=== PATIENT | male | born 1945 | race Caucasian/White ===

== ENCOUNTER 2020-09-28 03:33 | Inpatient (IN) | payer MEDICARE, BC ==
[2020-09-28] MEDS ORDERED: SODIUM CHLORIDE 0.9% 1,000 ML IV STA (03:43)
--- NOTE | 2020-09-28 03:47 | ED ---
Dizziness HPI - General Chief Complaint: Dizziness Stated Complaint: Dizziness, Fall Time Seen by Provider: 09/28/20 03:43 Source: patient, family, RN notes reviewed, old records reviewed Mode of arrival: ambulatory Limitations: no limitations - History of Present Illness Initial Comments: This is a 74-year-old male DF for evaluation. Patient presents today for evaluation regards to severe dizziness weakness and feeling like he may pass out. Patient is very diaphoretic and fell on the wall. Patient got up at night to go to the bathroom when all symptoms began MD Complaint: dizziness, lightheadedness, near syncope -: hour(s) Timing: sudden onset Description: "room spinning", lightheadedness History of Same: No History of Trauma: No Severity: mild Improves With: nothing Worsens With: nothing Associated Symptoms: diaphoresis, weakness - Related Data Allergies Allergy/AdvReac Type Severity Reaction Status Date / Time Sulfa (Sulfonamide Allergy Hallucinati Verified 09/28/20 03:40 Antibiotics) ons Review of Systems ROS Statement: Those systems with pertinent positive or pertinent negative responses have been documented in the HPI. ROS Other: All systems not noted in ROS Statement are negative. Past Medical History Past Medical History: No Reported History Additional Past Medical History / Comment(s): back pain History of Any Multi-Drug Resistant Organisms: None Reported Past Surgical History: Hernia Repair, Tonsillectomy Additional Past Surgical History / Comment(s): fatty tumor removd right arm, oral surgery Past Psychological History: No Psychological Hx Reported Smoking Status: Never smoker Past Alcohol Use History: Daily Past Drug Use History: None Reported General Exam Limitations: no limitations General appearance: alert, in no apparent distress Head exam: Present: atraumatic, normocephalic, normal inspection Eye exam: Present: normal appearance, PERRL, EOMI. Absent: scleral icterus, conjunctival injection, periorbital swelling ENT exam: Present: normal exam, mucous membranes moist Neck exam: Present: normal inspection. Absent: tenderness, meningismus, lymphadenopathy Respiratory exam: Present: normal lung sounds bilaterally. Absent: respiratory distress, wheezes, rales, rhonchi, stridor Cardiovascular Exam: Present: regular rate, normal rhythm, normal heart sounds. Absent: systolic murmur, diastolic murmur, rubs, gallop, clicks GI/Abdominal exam: Present: soft, normal bowel sounds. Absent: distended, tenderness, guarding, rebound, rigid Extremities exam: Present: normal inspection, full ROM, normal capillary refill. Absent: tenderness, pedal edema, joint swelling, calf tenderness Back exam: Present: normal inspection Neurological exam: Present: alert, oriented X3, CN II-XII intact Psychiatric exam: Present: normal affect, normal mood Skin exam: Present: warm, dry, intact, normal color. Absent: rash Course Vital Signs 09/28/20 09/28/20 09/28/20 03:34 04:03 04:38 Temperature 98.4 F Pulse Rate 100 105 H Pulse Rate [ 116 H Nursing Surgical Services Director ] Respiratory 22 18 Rate Blood Pressure 163/88 151/107 O2 Sat by Pulse 99 99 Oximetry 09/28/20 09/28/20 04:45 05:43 Temperature Pulse Rate 118 H 91 Pulse Rate [ Nursing Surgical Services Director ] Respiratory 18 18 Rate Blood Pressure 144/96 118/97 O2 Sat by Pulse 98 98 Oximetry - Reevaluation(s) Reevaluation #1: 09/28/20 03:46 Medical record is reviewed EKG Findings - EKG Comments: EKG Findings:: EKG shows A. fib 95 QRS 94 QTC 392 Medical Decision Making - Lab Data Result diagrams: 09/28/20 03:47 09/28/20 03:47 Lab Results 09/28/20 09/28/20 09/28/20 Range/Units 03:47 03:47 03:47 WBC 6.1 (3.8-10.6) k/uL RBC 4.23 L (4.30-5.90) m/uL Hgb 13.0 (13.0-17.5) gm/dL Hct 40.6 (39.0-53.0) % MCV 95.8 (80.0-100.0) fL MCH 30.8 (25.0-35.0) pg MCHC 32.1 (31.0-37.0) g/dL RDW 15.9 H (11.5-15.5) % Plt Count 84 L (150-450) k/uL MPV 14.1 Neutrophils % (Manual) 41 % Lymphocytes % (Manual) 36 % Monocytes % (Manual) 19 % Eosinophils % (Manual) 4 % Neutrophils # (Manual) 2.50 (1.3-7.7) k/uL Lymphocytes # (Manual) 2.20 (1.0-4.8) k/uL Monocytes # (Manual) 1.16 H (0-1.0) k/uL Eosinophils # (Manual) 0.24 (0-0.7) k/uL Nucleated RBCs 0 (0-0) /100 WBC Manual Slide Review Performed Reactive Lymphocytes Present Large Platelets Present PT 11.2 (9.0-12.0) sec INR 1.1 (<1.2) APTT 24.0 (22.0-30.0) sec Sodium 143 (137-145) mmol/L Potassium 3.9 (3.5-5.1) mmol/L Chloride 107 (98-107) mmol/L Carbon Dioxide 28 (22-30) mmol/L Anion Gap 8 mmol/L BUN 23 H (9-20) mg/dL Creatinine 0.85 (0.66-1.25) mg/dL Est GFR (CKD-EPI)AfAm >90 (>60 ml/min/1.73 sqM) Est GFR (CKD-EPI)NonAf 85 (>60 ml/min/1.73 sqM) Glucose 106 H (74-99) mg/dL Plasma Lactic Acid Matt (0.7-2.0) mmol/L Calcium 8.8 (8.4-10.2) mg/dL Phosphorus 3.3 (2.5-4.5) mg/dL Magnesium 1.9 (1.6-2.3) mg/dL Total Bilirubin 0.9 (0.2-1.3) mg/dL AST 27 (17-59) U/L ALT 10 (4-49) U/L Alkaline Phosphatase 59 (38-126) U/L Creatine Kinase 62 (55-170) U/L Troponin I (0.000-0.034) ng/mL Total Protein 7.3 (6.3-8.2) g/dL Albumin 4.1 (3.5-5.0) g/dL 09/28/20 09/28/20 Range/Units 03:47 03:47 WBC (3.8-10.6) k/uL RBC (4.30-5.90) m/uL Hgb (13.0-17.5) gm/dL Hct (39.0-53.0) % MCV (80.0-100.0) fL MCH (25.0-35.0) pg MCHC (31.0-37.0) g/dL RDW (11.5-15.5) % Plt Count (150-450) k/uL MPV Neutrophils % (Manual) % Lymphocytes % (Manual) % Monocytes % (Manual) % Eosinophils % (Manual) % Neutrophils # (Manual) (1.3-7.7) k/uL Lymphocytes # (Manual) (1.0-4.8) k/uL Monocytes # (Manual) (0-1.0) k/uL Eosinophils # (Manual) (0-0.7) k/uL Nucleated RBCs (0-0) /100 WBC Manual Slide Review Reactive Lymphocytes Large Platelets PT (9.0-12.0) sec INR (<1.2) APTT (22.0-30.0) sec Sodium (137-145) mmol/L Potassium (3.5-5.1) mmol/L Chloride (98-107) mmol/L Carbon Dioxide (22-30) mmol/L Anion Gap mmol/L BUN (9-20) mg/dL Creatinine (0.66-1.25) mg/dL Est GFR (CKD-EPI)AfAm (>60 ml/min/1.73 sqM) Est GFR (CKD-EPI)NonAf (>60 ml/min/1.73 sqM) Glucose (74-99) mg/dL Plasma Lactic Acid Matt 1.0 (0.7-2.0) mmol/L Calcium (8.4-10.2) mg/dL Phosphorus (2.5-4.5) mg/dL Magnesium (1.6-2.3) mg/dL Total Bilirubin (0.2-1.3) mg/dL AST (17-59) U/L ALT (4-49) U/L Alkaline Phosphatase (38-126) U/L Creatine Kinase (55-170) U/L Troponin I 0.019 (0.000-0.034) ng/mL Total Protein (6.3-8.2) g/dL Albumin (3.5-5.0) g/dL Critical Care Time Critical Care Time: Yes Total Critical Care Time: 31 Disposition Clinical Impression: Atrial fibrillation with RVR, New onset atrial fibrillation, Near syncope Disposition: ADMITTED IP TO THIS HOSP Condition: Fair Is patient prescribed a controlled substance at d/c from ED?: No Referrals: None,Stated [Primary Care Provider] - 1-2 days
[2020-09-28 04:12] LABS: ALT 10 U/L (4-49); AST 27 U/L (17-59); African American GFR (CKD) >90 (>60 ml/min/1.73 sqM); Albumin 4.1 g/dL (3.5-5.0); Alkaline Phosphatase 59 U/L (38-126); Anion Gap 8 mmol/L; Blood Urea Nitrogen 23 mg/dL (9-20); Calcium 8.8 mg/dL (8.4-10.2); Carbon Dioxide 28 mmol/L (22-30); Chloride 107 mmol/L (98-107); Creatine Kinase 62 U/L (55-170); Glucose 106 mg/dL (74-99); Magnesium 1.9 mg/dL (1.6-2.3); Non-African American GFR(CKD) 85 (>60 ml/min/1.73 sqM); Phosphorus 3.3 mg/dL (2.5-4.5); Potassium 3.9 mmol/L (3.5-5.1); Sodium 143 mmol/L (137-145); Total Bilirubin 0.9 mg/dL (0.2-1.3); Total Protein 7.3 g/dL (6.3-8.2)
[2020-09-28 04:14] LABS: INR 1.1 (<1.2); Prothrombin Time 11.2 sec (9.0-12.0)
[2020-09-28 04:18] LABS: HCT 40.6 % (39.0-53.0); MCH 30.8 pg (25.0-35.0); MCHC 32.1 g/dL (31.0-37.0); MCV 95.8 fL (80.0-100.0); Mean Platelet Volume 14.1; RBC 4.23 m/uL (4.30-5.90); RDW 15.9 % (11.5-15.5); WBC 6.1 k/uL (3.8-10.6)
[2020-09-28] MEDS ORDERED: DILTIAZEM DRIP BOLUS FROM BAG 1 MG SOLN IV ONE (04:21)
[2020-09-28 04:26] LABS: Platelet Count 84 k/uL (150-450)
[2020-09-28] MEDS ORDERED: DILTIAZEM 125 MG in SODIUM CHLORIDE 0.9% 100 ML IV SCH (04:30)
[2020-09-28 04:31] LABS: Eosinophils # (M) 0.24 k/uL (0-0.7); Monocytes # (M) 1.16 k/uL (0-1.0); Neutrophils % (M) 41 %; Nucleated Red Blood Cells 0 /100 WBC (0-0); Total Cells Counted 100
[2020-09-28 04:32] LABS: Large Platelets Present; Reactive Lymphocytes Present
[2020-09-28] MEDS ORDERED: METOPROLOL TARTRATE 5 MG/5 ML VIAL IVP STA (04:48)
--- NOTE | 2020-09-28 05:34 | CT ---
EXAMINATION TYPE: CT brain wo con DATE OF EXAM: 09/28/2020 COMPARISON: None HISTORY: headache CT DLP: 1109.4 mGycm Automated exposure control for dose reduction was used. There is cerebral cortical atrophy. There is no mass effect nor midline shift. There is no sign of in tracranial hemorrhage. There is some mild white matter hypodensity. Calvarium is intact. There is muc us retention cyst right maxillary sinus. IMPRESSION: Mild atrophy. Chronic small vessel ischemia. No acute intracranial abnormality.
--- NOTE | 2020-09-28 05:49 | CT ---
EXAMINATION TYPE: CT angio chest DATE OF EXAM: 09/28/2020 COMPARISON: None HISTORY: chest pain CT DLP: 492.7 mGycm Automated exposure control for dose reduction was used. CONTRAST: Performed with IV Contrast, patient injected with 70 mL of Isovue 370. There are 3-D post processed images. There is some elevation of the right diaphragm. There is minimal atelectasis right lung base. 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 There is no dissection. There is no pericardial effusion. There is no evidence of filling defect in the pulmonary arteries. There is 2.5 cm right bronchial lym ph nodes. There is 2 cm left bronchial lymph nodes. There is no pleural effusion. There is some spurr ing in the thoracic spine. Sternum is intact. There is thoracic dextroscoliosis. There is 1.7 cm roun ded fluid density in the liver that is probably a cyst. IMPRESSION: No evidence of pulmonary embolism. There is mild bronchial adenopathy. Thoracic aortic aneurysm.
[2020-09-28] MEDS ORDERED: MORPHINE SULFATE 4 MG/ML SYRINGE IVP PRN (05:51)
[2020-09-28] MEDS ORDERED: MORPHINE SULFATE 4 MG/ML SYRINGE IVP STA (05:51)
[2020-09-28] MEDS ORDERED: NITROGLYCERIN SL TABS 0.4 MG TAB SUBLINGUAL PRN (06:05)
[2020-09-28 06:13] LABS: Appearance,Urine Clear (Clear); Bilirubin,Urine Negative (Negative); Blood,Urine Negative (Negative); Color,Urine Yellow; Glucose,Urine (UA) Negative (Negative); Ketones,Urine Negative (Negative); Leukocyte Esterase,Urine Negative (Negative); Nitrite,Urine Negative (Negative); PH, Urine 7.5 (5.0-8.0); Protein,Urine Negative (Negative); Specific Gravity,Urine 1.023 (1.001-1.035); Urobilinogen,Urine <2.0 mg/dL (<2.0)
[2020-09-28] MEDS: SODIUM CHLORIDE 0.9% 1,000 ML IV SCH ×2 (07:57→14:59)
[2020-09-28] MEDS: METOPROLOL TARTRATE 25 MG TAB PO SCH ×2 (07:58→19:32)
[2020-09-28] MEDS ORDERED: APIXABAN 5 MG TAB PO SCH ×2 (08:00→09:00)
[2020-09-28] MEDS ORDERED: HEPARIN SODIUM 1,000 UN/ML (10ML VL) IV ONE (12:54)
[2020-09-28] MEDS ORDERED: HEPARIN SODIUM 1,000 UN/ML (10ML VL) IV PRN (12:54)
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
[2020-09-28 17:50] LABS: Hypochromasia Slight; MCH 31.1 pg (25.0-35.0); MCHC 31.8 g/dL (31.0-37.0); MCV 97.8 fL (80.0-100.0); Mean Platelet Volume 14.7; RBC 4.19 m/uL (4.30-5.90); RDW 15.6 % (11.5-15.5); WBC 10.3 k/uL (3.8-10.6)
[2020-09-28 17:52] LABS: Platelet Count 93 k/uL (150-450)
[2020-09-28] MEDS: HEPARIN SOD,PORK IN 0.45% NACL 25,000 UNIT in 0.45% NACL 1 250ML.BAG IV SCH (17:57)
[2020-09-28] MEDS ORDERED: ACETAMINOPHEN TAB 325 MG TAB PO PRN (19:36)
--- NOTE | 2020-09-28 21:25 | ECHOF ---
Referral Reason:afib with RVR MEASUREMENTS -------- HEIGHT: 182.9 cm WEIGHT: 97.1 kg BP: 136/76 RVIDd: 3.8 cm (< 3.3) IVSd: 1.7 cm (0.6 - 1.1) LVIDd: 3.8 cm (3.9 - 5.3) LVPWd: 1.8 cm (0.6 - 1.1) IVSs: 2.2 cm LVIDs: 2.5 cm LVPWs: 2.2 cm LAESV Index (A-L): 31.48 ml/m Ao Diam: 3.8 cm (2.0 - 3.7) AV Cusp: 2.6 cm (1.5 - 2.6) LA Diam: 4.0 cm (2.7 - 3.8) MV EXCURSION: 17.874 mm (> 18.000) MV EF SLOPE: 43 mm/s (70 - 150) EPSS: 0.2 cm RAP: 5.00 mmHg RVSP: 21.34 mmHg FINDINGS -------- Atrial fibrillation. This was a technically adequate study. The left ventricular size is normal. There is severe concentric left ventricular hypertrophy. Ove rall left ventricular systolic function is normal with, an EF between 55 - 60 %. Left ventricular f illimg pressure cannot be estimated due to Atrial fibrillation. The right ventricle is mild to moderately enlarged. LA is midly dilated 29-33ml/m2. The right atrial size is normal. Interatrial and interventricular septum intact. The aortic valve is trileaflet and appears structurally normal. There is no evidence of aortic regu rgitation. There is no evidence of aortic stenosis. Mild mitral regurgitation is present. Mild tricuspid regurgitation present. There is no evidence of pulmonary hypertension. The right v entricular systolic pressure, as measured by Doppler, is 21.34mmHg. There is no pulmonic regurgitation present. The aortic root size is normal. IVC Not well visulized. There is no pericardial effusion. CONCLUSIONS -------- 1. This was a technically adequate study. 2. The left ventricular size is normal. 3. There is severe concentric left ventricular hypertrophy. 4. Overall left ventricular systolic function is normal with, an EF between 55 - 60 %. 5. Left ventricular fillimg pressure cannot be estimated due to Atrial fibrillation. 6. The right ventricle is mild to moderately enlarged. 7. LA is midly dilated 29-33ml/m2. 8. Mild mitral regurgitation is present. 9. Mild tricuspid regurgitation present. MAGNETIC TESTER: Lorrie Maddox RDCS
[2020-09-29] MEDS: SODIUM CHLORIDE 0.9% 1,000 ML IV SCH ×2 (02:47→08:20)
[2020-09-29 07:16] LABS: HCT 34.4 % (39.0-53.0); HGB 11.4 gm/dL (13.0-17.5); Hypochromasia Slight; MCH 31.9 pg (25.0-35.0); MCHC 33.1 g/dL (31.0-37.0); MCV 96.3 fL (80.0-100.0); RBC 3.57 m/uL (4.30-5.90); RDW 15.9 % (11.5-15.5); WBC 7.7 k/uL (3.8-10.6)
[2020-09-29 07:19] LABS: Mean Platelet Volume 14.7; Platelet Count 73 k/uL (150-450)
[2020-09-29] MEDS: METOPROLOL TARTRATE 25 MG TAB PO SCH (08:19)
[2020-09-29] MEDS: ASPIRIN 81 MG PO SCH (08:19)
[2020-09-29] MEDS ORDERED: ASPIRIN 325 MG TAB PO SCH (09:00)
--- NOTE | 2020-09-29 09:52 | P.PN ---
Subjective Progress Note Date: 09/29/20 Principal diagnosis: CC: Dizziness/lightheadedness Patient is a 74-year-old male with a past medical history of chronic back pain and varicose veins who does not have a PCP presents to the ED with dizziness and diaphoresis and near syncope. Patient states that he got up last night to use the bathroom and when he was walking back to his bed these symptoms occurred. Patient denies loss of consciousness. Patient's states that she listened to his heart and it sounded irregular. Patient however denied any palpitations or chest pain. In the ED patient was found to be in A. fib with RVR. He was started on Cardizem drip and Eliquis. Patient's troponins were mildly elevated and gradually increasing so Eliquis was discontinued and patient started on heparin drip. Patient's troponins peaked at 0.066. Patient was started on metoprolol 25 mg by mouth twice a day and he was titrated off the Cardizem drip. Patient's echocardiogram showed an EF of 55-60%. Cardiology plans to do a left heart catheterization on 09/30/2020 if his platelets are stable Patient this morning denies any palpitations or chest pain. He denies any further presyncopal episodes. Patient states that he feels well. Patient's platelets this morning were 73 which is down from 93. He denies any overt signs of bleeding. Objective - Vital Signs Vital signs: Vital Signs Temp 98.2 F 09/29/20 08:00 Pulse 110 H 09/29/20 08:00 Resp 16 09/29/20 08:00 BP 129/79 09/29/20 08:00 Pulse Ox 97 09/29/20 08:00 Intake & Output 09/28/20 09/29/20 09/29/20 18:59 06:59 18:59 Intake Total 2179.417 4227.732 0756.8 Balance 2179.417 4024.813 4765.8 Weight 97.3 kg 99.4 kg Intake: IV 1240 1200 Invasive Line 1 20 Invasive Line 2 20 Sodium Chloride 0.9% 1, 1200 1200 000 ml @ 100 mls/hr IV . Q10H [facility] Rx#:[id number] Intake, IV Titration 59.417 624.667 81.8 Amount Diltiazem 125 mg In 59.417 Sodium Chloride 0.9% 100 ml @ 5 MG/HR 5 mls/hr IV .Q24H [facility] Rx#:[id number] Heparin Sod,Pork in 0.45% 124.667 81.8 NaCl 25,000 unit In 0.45 % NaCl 1 250ml.bag @ 10. 278 UNITS/KG/HR 10 mls/hr IV .Q24H [facility] Rx#: [id number] Sodium Chloride 0.9% 1, 500 000 ml @ 100 mls/hr IV . Q10H [facility] Rx#:[id number] Oral 880 480 200 Other: # Voids 1 3 - Exam General examination - Alert and Oriented 3 in NAD Heart - + S1S2 no murmurs Lungs - Clear to auscultation Abdomen soft NT ND +ve BS Extremities - No edema [employer]CH[employer]ICIAN - Moving all 4 extremities spontaneously Psych - Calm and cooperative - Labs CBC & Chem 7: 09/29/20 06:37 09/28/20 03:47 Labs: Abnormal Lab Results - Last 24 Hours (Table) 09/28/20 09/28/20 09/28/20 Range/Units 10:51 14:05 17:09 RBC (4.30-5.90) m/uL Hgb (13.0-17.5) gm/dL Hct (39.0-53.0) % RDW (11.5-15.5) % Plt Count (150-450) k/uL APTT (22.0-30.0) sec Troponin I 0.066 H* 0.065 H* 0.056 H* (0.000-0.034) ng/mL 09/28/20 09/29/20 09/29/20 Range/Units 17:09 00:23 06:37 RBC 4.19 L (4.30-5.90) m/uL Hgb (13.0-17.5) gm/dL Hct (39.0-53.0) % RDW 15.6 H (11.5-15.5) % Plt Count 93 L (150-450) k/uL APTT 35.6 H 41.3 H (22.0-30.0) sec Troponin I (0.000-0.034) ng/mL 09/29/20 Range/Units 06:37 RBC 3.57 L (4.30-5.90) m/uL Hgb 11.4 L (13.0-17.5) gm/dL Hct 34.4 L (39.0-53.0) % RDW 15.9 H (11.5-15.5) % Plt Count 73 L (150-450) k/uL APTT (22.0-30.0) sec Troponin I (0.000-0.034) ng/mL Assessment and Plan Assessment: #Presyncopal episode likely due to A. fib with RVR versus possible ACS #A. fib with RVR -Heart rate is now controlled -Cardizem ggt discontinued and patient started on metoprolol 25 mg twice a day -Resume heparin drip -CHADVASc score is 2-> will defer choice of anticoagulation to cardiology -Cardiology on board #Type II [place] likely due to the above vs Type I -Patient denied any chest pain -Echocardiogram shows EF of 55-60% -Troponin peaked at 0.066. -Resume heparin drip -Cardiology plans to do left heart catheterization tomorrow if platelets are stable #Thrombocytopenia -Platelets decreased from 93-73 this morning -Patient denies any overt signs of bleeding -Monitor CBC #Chronic back pain -IV morphine when necessary -I encouraged patient to follow-up with his PCP for further workup Advanced to inpatient status as patient requires heparin drip and need to rule out ACS CODE STATUS:full code DVT prophylaxis: heparin ggt Anticipated discharge place: home
--- NOTE | 2020-09-29 12:08 | P.PN ---
Subjective HISTORY OF PRESENTING ILLNESS Patient is a pleasant 74-year-old male with history of chronic back pain, left hand neuropathy and varicose veins who presents secondary to episodes of dizziness and diaphoresis. He states that 2:00 in the morning he got up from bed to go use the bathroom and then on the walk there was feeling somewhat lightheaded. He started breaking out in a sweat and felt like he could not quite catch his breath. Patient denies any palpitations. No prior history of A. fib. He was found to be in A. fib with mild RVR with heart rates 110s and 120s and was given Cardizem drip, currently at 5. He states that after coming t o the emergency department to sweating slowly improved and now he feels somewhat back to normal. Blood work shows white blood cell count 6.1, hemoglobin 13.0, platelets 84, BUN 23, creatinine 0.85, troponin 0.019, 0.058, 0.066, 0.065. EKG shows atrial fibrillation with normal axis, no significant ST or T wave abnormalities. 09/29 Patient seen and examined. Patient was started on a heparin drip yesterday. He denies any further episodes of diaphoresis, shortness breath, chest tightness. He remains in A. fib with controlled ventricular rates. Echocardiogram performed yesterday shows ejection fraction 55-60%, mild mitral regurgitation. REVIEW OF SYSTEMS At the time of my exam: CONSTITUTIONAL: Denies fever or chills. CARDIOVASCULAR: Denies chest pain, +shortness of breath, no orthopnea, PND or palpitations. RESPIRATORY: Denies cough. GASTROINTESTINAL: Denies abdominal pain, diarrhea, constipation, nausea or vomiting. MUSCULOSKELETAL: Denies myalgias. NEUROLOGIC: Denies numbness, tingling or weakness. ENDOCRINE: Denies fatigue, weight change, polydipsia or polyurina. GENITOURINARY: Denies burning, hematuria or urgency with micturation. HEMATOLOGIC: Denies history of anemia or bleeding. PHYSICAL EXAMINATION Vital signs reviewed. CONSTITUTIONAL: No apparent distress. HEENT: Head is normocephalic. Pupils are equal, round. Sclerae anicteric. Mucous membranes of the mouth are moist. No JVD. No carotid bruit. CHEST EXAMINATION: Lungs are clear to auscultation. No chest wall tenderness is noted on palpation or with deep breathing. HEART EXAMINATION: Regular rate and rhythm. S1, S2 heard. No murmurs, gallops or rub. ABDOMEN: Soft, nontender. Positive bowel sounds. EXTREMITIES: 2+ peripheral pulses, no lower extremity edema and no calf tenderness. NEUROLOGIC EXAMINATION: Patient is awake, alert and oriented x3. ASSESSMENT 1. Non-STEMI, possible type II mechanism however did not appear to have significant A. fib with RVR, mild RVR and concerning for possible type I mechanism. 2. Acute onset of lightheadedness, diaphoresis and shortness breath. Rule out acute coronary syndrome 3. Mildly elevated blood pressure 4. New-onset A. fib with mild RVR, persistent 5. Thrombocytopenia PLAN Patient remains in A. fib and may be persistent atrial fibrillation, unclear duration. Acute onset of symptoms with rise and follow-up troponins concerning for acute coronary syndrome. Echocardiogram with preserved left ventricular ejection fraction. Given non- STEMI we will check left heart catheterization tomorrow as long his platelets remain stable. Objective - Vital Signs Vital signs: Vital Signs Temp 98.2 F 09/29/20 08:00 Pulse 110 H 09/29/20 08:00 Resp 16 09/29/20 08:00 BP 129/79 09/29/20 08:00 Pulse Ox 97 09/29/20 08:00 Intake & Output 09/28/20 09/29/20 09/29/20 18:59 06:59 18:59 Intake Total 2179.417 4335.224 0531.8 Balance 2179.417 1123.304 6933.8 Weight 97.3 kg 99.4 kg Intake: IV 1240 1200 Invasive Line 1 20 Invasive Line 2 20 Sodium Chloride 0.9% 1, 1200 1200 000 ml @ 100 mls/hr IV . Q10H [facility] Rx#:[id number] Intake, IV Titration 59.417 624.667 81.8 Amount Diltiazem 125 mg In 59.417 Sodium Chloride 0.9% 100 ml @ 5 MG/HR 5 mls/hr IV .Q24H [facility] Rx#:[id number] Heparin Sod,Pork in 0.45% 124.667 81.8 NaCl 25,000 unit In 0.45 % NaCl 1 250ml.bag @ 10. 278 UNITS/KG/HR 10 mls/hr IV .Q24H [facility] Rx#: [id number] Sodium Chloride 0.9% 1, 500 000 ml @ 100 mls/hr IV . Q10H [facility] Rx#:[id number] Oral 880 480 200 Other: # Voids 1 3 - Labs CBC & Chem 7: 09/29/20 06:37 09/28/20 03:47 Labs: Abnormal Lab Results - Last 24 Hours (Table) 09/28/20 09/28/20 09/28/20 Range/Units 10:51 14:05 17:09 RBC (4.30-5.90) m/uL Hgb (13.0-17.5) gm/dL Hct (39.0-53.0) % RDW (11.5-15.5) % Plt Count (150-450) k/uL APTT (22.0-30.0) sec Troponin I 0.066 H* 0.065 H* 0.056 H* (0.000-0.034) ng/mL 09/28/20 09/29/20 09/29/20 Range/Units 17:09 00:23 06:37 RBC 4.19 L (4.30-5.90) m/uL Hgb (13.0-17.5) gm/dL Hct (39.0-53.0) % RDW 15.6 H (11.5-15.5) % Plt Count 93 L (150-450) k/uL APTT 35.6 H 41.3 H (22.0-30.0) sec Troponin I (0.000-0.034) ng/mL 09/29/20 Range/Units 06:37 RBC 3.57 L (4.30-5.90) m/uL Hgb 11.4 L (13.0-17.5) gm/dL Hct 34.4 L (39.0-53.0) % RDW 15.9 H (11.5-15.5) % Plt Count 73 L (150-450) k/uL APTT (22.0-30.0) sec Troponin I (0.000-0.034) ng/mL
[2020-09-29 13:02] LABS: Chol/HDL Ratio 2.05; Cholesterol 88 mg/dL (0-200); Triglycerides <50.0 mg/dL (0.0-149.0)
[2020-09-29] MEDS ORDERED: ALPRAZolam 0.5 MG TAB PO PRN (14:07)
[2020-09-29] MEDS ORDERED: ALPRAZolam 0.25 MG TAB PO PRN (14:07)
[2020-09-29] MEDS ORDERED: NITROGLYCERIN SL TABS 0.4 MG TAB SUBLINGUAL PRN (14:07)
[2020-09-29] MEDS ORDERED: SODIUM CHLORIDE 0.9% 1,000 ML in EMPTY BAG 1 BAG IV ONE (14:07)
[2020-09-29] MEDS: HEPARIN SOD,PORK IN 0.45% NACL 25,000 UNIT in 0.45% NACL 1 250ML.BAG IV SCH (14:24)
[2020-09-29] MEDS ORDERED: lisinopriL 10 MG TAB PO SCH (18:30)
[2020-09-29] MEDS ORDERED: DILTIAZEM DRIP BOLUS FROM BAG 1 MG SOLN IV ONE (18:34)
[2020-09-29] MEDS ORDERED: DILTIAZEM 5 MG/ML 5 ML VIAL IVP STA (18:37)
[2020-09-29] MEDS: METOPROLOL TARTRATE 50 MG TAB PO SCH (18:45)
[2020-09-29] MEDS ORDERED: lisinopriL 20 MG TAB PO STA (22:19)
[2020-09-30] MEDS: SODIUM CHLORIDE 0.9% 1,000 ML IV SCH ×2 (03:15→09:47)
[2020-09-30] MEDS ORDERED: ATORVASTATIN 80 MG TAB PO ONE (06:00)
[2020-09-30] MEDS ORDERED: ASPIRIN 325 MG TAB PO ONE (06:00)
[2020-09-30] MEDS: ASPIRIN 81 MG PO SCH (06:11)
[2020-09-30] MEDS: METOPROLOL TARTRATE 50 MG TAB PO SCH ×2 (06:17→21:20)
[2020-09-30] MEDS: lisinopriL 20 MG TAB PO SCH (06:17)
[2020-09-30] MEDS ORDERED: HEPARIN SODIUM,PORCINE 2,500 UNIT in SODIUM CHLORIDE 0.9% 250 ML IRRIGATION PRN (07:00)
[2020-09-30] MEDS ORDERED: HEPARIN SODIUM,PORCINE 10,000 UNIT in SODIUM CHLORIDE 0.9% 1,000 ML IRRIGATION PRN (07:00)
[2020-09-30 07:19] LABS: HCT 36.9 % (39.0-53.0); HGB 12.1 gm/dL (13.0-17.5); Hypochromasia Slight; MCH 31.9 pg (25.0-35.0); MCHC 32.7 g/dL (31.0-37.0); MCV 97.6 fL (80.0-100.0); Mean Platelet Volume 15.8; RBC 3.79 m/uL (4.30-5.90); RDW 15.5 % (11.5-15.5); WBC 8.2 k/uL (3.8-10.6)
[2020-09-30] MEDS ORDERED: VERAPAMIL 2.5 MG/ML 2 ML AMP ONE (07:19)
[2020-09-30] MEDS ORDERED: fentaNYL (PF) 50 MCG/ML 2 ML AMP ONE (07:19)
[2020-09-30] MEDS ORDERED: HEPARIN SODIUM 1,000 UN/ML (10ML VL) ONE (07:19)
[2020-09-30 07:20] LABS: Platelet Count 75 k/uL (150-450)
[2020-09-30] MEDS ORDERED: LIDOCAINE 1% INJ 10MG/ML (20 ML MDV) ONE (07:20)
[2020-09-30 07:33] LABS: African American GFR (CKD) >90 (>60 ml/min/1.73 sqM); Blood Urea Nitrogen 18 mg/dL (9-20); Calcium 8.5 mg/dL (8.4-10.2); Chloride 107 mmol/L (98-107); Glucose 94 mg/dL (74-99); Magnesium 1.8 mg/dL (1.6-2.3); Non-African American GFR(CKD) 89 (>60 ml/min/1.73 sqM); Sodium 139 mmol/L (137-145)
[2020-09-30 07:34] LABS: Anion Gap 6 mmol/L; Carbon Dioxide 26 mmol/L (22-30)
[2020-09-30] MEDS ORDERED: MIDAZOLAM 2 MG/2 ML VIAL IV ONE (07:46)
[2020-09-30] MEDS ORDERED: fentaNYL (PF) 50 MCG/ML 2 ML AMP IV ONE (07:46)
[2020-09-30] MEDS ORDERED: IV FLUID CONTINUATION 500 ML IV ONE (07:47)
[2020-09-30] MEDS ORDERED: LIDOCAINE 1% INJ 10MG/ML (20 ML MDV) SQ ONE (07:47)
[2020-09-30] MEDS ORDERED: VERAPAMIL SYRINGE (5 MG/10 ML) INTRAARTER ONE (07:48)
[2020-09-30] MEDS ORDERED: HEPARIN SODIUM 1,000 UN/ML (10ML VL) IV ONE (07:52)
[2020-09-30] MEDS ORDERED: IOPAMIDOL-370 125ML BTL INJ ONE (08:03)
[2020-09-30] MEDS ORDERED: RX INFO: IV CONTRAST WAS GIVEN 1 EACH MISC MISCELLANE PRN (08:12)
--- NOTE | 2020-09-30 08:12 | P.CARDCATH ---
Description of Procedure: PROCEDURES PERFORMED: Left heart catheterization, bilateral coronary angiography INDICATION: Elevated troponins HISTORY: Patient is a pleasant 74-year-old male without significant medical history other somewhat uncontrolled hypertension who presented secondary to sudden onset of diaphoresis and shortness breath. Patient was found to have new onset of atrial fibrillation, unclear duration. Patient also was found to have elevated troponins with some mild rise and therefore left heart catheterization was recommended. CONSENT:I have discussed the risks, benefits and alternative therapies for the above-mentioned procedure and for both sedation/analgesia as well as necessary blood product administration, if indicated, as they pertain to this patient. The patient has indicated understanding and acceptance of the risks and procedures discussed. PROCEDURE: After the risks, benefits and alternatives of the above mentioned pr ocedure explained in detail with the patient, informed consent was obtained. Patient was taken to the catheterization lab and prepped and draped in usual fashion. 1% lidocaine was used to anesthetize the right radial artery. A 6- Japanese sheath was placed in the right radial artery using modified Seldinger technique. Left coronary angiography was performed with a 5-Japanese JL 3.5 catheter and right coronary angiography was performed with a 5-Japanese JR5 catheter in various views. A 5-Japanese FR5 catheter was inserted into the left ventricle and pressure measurements were obtained. The right radial sheath was removed and a TR band was placed with hemostasis achieved. The patient tolerated the procedure well. Patient was transported back to the post catheterization holding area in stable condition. Conscious Sedation: Patient was monitored under the direct supervision of vision of myself for conscious sedation using Versed and fentanyl for a total duration of 19 minutes HEMODYNAMICS: Aorta: 145/92 LV: 137/8, LVEDP 15 SELECTIVE CORONARY ARTERIOGRAPHY: LEFT MAIN: The left main is nonexistent as there are dual ostia of the LAD and circumflex. LEFT ANTERIOR DESCENDING CORONARY ARTERY: LAD is a large caliber vessel which wraps around to the apex. There is no significant stenosis. LEFT CIRCUMFLEX CORONARY ARTERY: Left circumflex is a moderate caliber vessel without significant stenosis. The left circumflex is codominant. RIGHT CORONARY ARTERY: The right coronary artery is a small to moderate caliber vessel which gives off a small PDA and is a codominant vessel. There is no significant stenosis. FINAL IMPRESSION: 1. Normal coronary arteries as described above. 2. Normal left sided filling pressures PLAN: 1. Aggressive risk factor modification per most recent ACC/AHA guidelines. 2. Follow-up in the office in 1-2 weeks.
--- NOTE | 2020-09-30 11:12 | P.PN ---
Subjective Progress Note Date: 09/30/20 Hospital course: Patient is a 74-year-old male with a past medical history of chronic back pain and varicose veins who does not follow with a PCP presented to the ED on 09/28/20 with a chief complaint of dizziness and diaphoresis and near syncope. Patient reportedly got up to use the restroom and the dizziness and diaphoresis came on suddenly accompanied by a feeling as though he was going to pass out, he states the symptoms resolved by the time he got back to bed and this is when his reportedly checked on him and found him to have an irregular heartbeat and called the ambulance. Upon arrival to the emergency department patient was found to be in A. fib RVR requiring placement on Cardizem drip and anticoagulation with Eliquis. An EKG was obtained showing A. fib with a controlled ventricular rate at [address] was completed revealing mild atrophy and chronic small vessel ischemia with no acute intercranial abnormalities. CT PE was completed negative for pulmonary embolism however did reveal a 4.3 cm thoracic aortic aneurysm in the ascending aorta. Patient underwent an echocardiogram revealing a normal EF of 55-60% with mild mitral and tricuspid regurgitation. Patient underwent cardiac catheterization this morning. Physical exam: Patient seen and fully evaluated at bedside upon return from cardiac cath. Cardiac cath site to right wrist with TR band in place, no signs of bleeding or hematoma present. Patient denies having any complaints at this time including chest pain, palpitations, shortness of breath, nausea, or vomiting. He remains in atrial fibrillation with a controlled ventricular rate in the 80s at time of assessment. Vital signs reviewed and stable. General: Nontoxic, no distress and appears stated age. Derm: Skin warm and dry, normal coloration for ethnicity. cardiac cath site to right wrist with TR band in place, no signs of bleeding or hematoma present. Head: Atraumatic, normocephalic and symmetric. Eyes: EOMs intact, no lid lag, and anicteric sclera Mouth: no lip lesions, mucus membranes moist Cardiovascular: Irregularly irregular hythm with normal S1S2, no murmur, positive posterior tibial pulses bilaterally, and cap refill < 2 seconds. Lungs: Respirations even, regular, and unlabored on room air. Lungs CTA bilaterally, no rhonchi, no rales, no wheezing, and no accessory muscle usage. Abdominal: soft, nontender to palpation, no guarding, no appreciable organomegaly Ext: ROM intact. No gross muscle atrophy, no edema, no contractures Neuro: Speech clear, face symmetrical and CN II-XII grossly intact with no noted focal neuro deficits Psych: Alert and oriented to person, place, time, and situation. Appropriate and pleasant affect. Assessment and Plan of Care: Presyncopal episode likely due to A. fib with RVR versus possible ACS Atrial fibrillation with RVR -An EKG was obtained showing A. fib with a controlled ventricular rate at 95 bpm. -Initial troponin 0.019 with repeat troponins elevated at 0.058, 0.066, 0.065, and 0.056. -Heart rate is now controlled -Patient underwent cardiac catheterization this morning. Awaiting further recommendations from cardiology. -Continue metoprolol 50 mg twice a day -Resume Eliquis once cleared by cardiology to resume status post cardiac cath Elevated troponins likely secondary to Type II [place] due to atrial fibrillation with episode of RVR -Patient denied any chest pain -An EKG was obtained showing A. fib with a controlled ventricular rate at 95 bpm. -Initial troponin 0.019 with repeat troponins elevated at 0.058, 0.066, 0.065, and 0.056. -Echocardiogram shows EF of 55-60% -Troponin peaked at 0.066. -Resume anticoagulation once cleared from cardiology to resume status post cath. -Cardiology completed Left heart catheterization this morning. Awaiting further recommendations. Hypertension -Monitor vital signs. Metoprolol was increased to 50 mg twice a day and lisinopril increased to 40 mg daily. Thrombocytopenia -Platelets 75,000 this morning. -Patient denies any overt signs of bleeding -Monitor CBC and for any signs of bleeding especially near cardiac cath site. Chronic back pain -Symptomatic care and pain management. -I encouraged patient to follow-up with his PCP for further workup CODE STATUS: Full code DVT prophylaxis: Resume Eliquis once cleared by cardiology status post cardiac cath completed earlier today. Discussed with: Patient and RN Anticipated discharge date: later today versus tomorrow, pending clearance from cardiology Anticipated discharge place: home A total of 45 minutes was spent on the care of this complex patient more than 50% of the time was spent in counseling and care coordination. Objective - Vital Signs Vital signs: Vital Signs Temp 97.6 F 09/30/20 07:53 Pulse 87 09/30/20 08:20 Resp 18 09/30/20 08:20 BP 142/91 09/30/20 08:20 Pulse Ox 96 09/30/20 08:20 Intake & Output 09/29/20 09/30/20 09/30/20 18:59 06:59 18:59 Intake Total 3027.782 250 50 Output Total 1 Balance 3027.782 249 50 Weight 98.9 kg Intake: IV 2200 250 50 Sodium Chloride 0.9% 1, 2200 250 000 ml @ 100 mls/hr IV . Q10H [facility] Rx#:[id number] Intake, IV Titration 167.782 Amount Heparin Sod,Pork in 0.45% 167.782 NaCl 25,000 unit In 0.45 % NaCl 1 250ml.bag @ 10. 278 UNITS/KG/HR 10 mls/hr IV .Q24H [facility] Rx#: [id number] Oral 660 Output: Urine 1 Other: Voiding Method Toilet # Voids 4 - Labs CBC & Chem 7: 09/30/20 06:42 09/30/20 06:42 Labs: Abnormal Lab Results - Last 24 Hours (Table) 09/29/20 09/30/20 09/30/20 Range/Units 13:50 06:42 06:42 RBC 3.79 L (4.30-5.90) m/uL Hgb 12.1 L (13.0-17.5) gm/dL Hct 36.9 L (39.0-53.0) % Plt Count 75 L (150-450) k/uL APTT 49.6 H 34.3 H (22.0-30.0) sec
--- NOTE | 2020-09-30 11:24 | P.PN ---
Subjective HISTORY OF PRESENTING ILLNESS Patient is a pleasant 74-year-old male with history of chronic back pain, left hand neuropathy and varicose veins who presents secondary to episodes of dizziness and diaphoresis. He states that 2:00 in the morning he got up from bed to go use the bathroom and then on the walk there was feeling somewhat lightheaded. He started breaking out in a sweat and felt like he could not quite catch his breath. Patient denies any palpitations. No prior history of A. fib. He was found to be in A. fib with mild RVR with heart rates 110s and 120s and was given Cardizem drip, currently at 5. He states that after coming t o the emergency department to sweating slowly improved and now he feels somewhat back to normal. 09/30/2020 Pt is s/p catheterization revealing normal coronary arteries. He continues to be in afib with controlled rates. Blood pressure 142/92 heart rate 87 afebrile and maintaining oxygen saturation on room air. His is at the bedside. He denies chest pain, shortness of breath, dizziness or palpitations. PHYSICAL EXAMINATION CONSTITUTIONAL: No apparent distress. HEENT: Head is normocephalic. Pupils are equal, round. Sclerae anicteric. Mucous membranes of the mouth are moist. No JVD. No carotid bruit. CHEST EXAMINATION: Lungs are clear to auscultation. No chest wall tenderness is noted on palpation or with deep breathing. HEART EXAMINATION: Regular rate and rhythm. S1, S2 heard. No murmurs, gallops or rub. EXTREMITIES: 2+ peripheral pulses, no lower extremity edema and no calf ten derness. Right radial TR band in place. ASSESSMENT Non-STEMI, possible type II mechanism however did not appear to have significant A. fib with RVR, mild RVR and concerning for possible type I mechanism. Acute onset of lightheadedness, diaphoresis and shortness breath. Rule out acute coronary syndrome Hypertension New-onset A. fib with mild RVR, persistent Thrombocytopenia PLAN His symptoms seemed to have started acutely prior to arrival. Likely this is when he went into afib. He admits to drinking wine heavily daily, at night before bedtime. Advised complete alcohol cessation. Hold anti-coagulation at this time due to thrombocytopenia. CHADS-VASC score 3. Increase activity and ambulation in the halls. If he remains stable with controlled heart rates he can be discharged later this afternoon. Follow up with Dr. Guillaume in 1 week. Nurse Practitioner note has been reviewed, I agree with a documented findings and plan of care. Patient was seen and examined. Objective - Vital Signs Vital signs: Vital Signs Temp 97.6 F 09/30/20 07:53 Pulse 82 09/30/20 08:50 Resp 18 09/30/20 08:20 BP 131/82 09/30/20 08:50 Pulse Ox 96 09/30/20 08:20 Intake & Output 09/29/20 09/30/20 09/30/20 18:59 06:59 18:59 Intake Total 3027.782 250 50 Output Total 1 Balance 3027.782 249 50 Weight 98.9 kg Intake: IV 2200 250 50 Sodium Chloride 0.9% 1, 2200 250 000 ml @ 100 mls/hr IV . Q10H [facility] Rx#:[id number] Intake, IV Titration 167.782 Amount Heparin Sod,Pork in 0.45% 167.782 NaCl 25,000 unit In 0.45 % NaCl 1 250ml.bag @ 10. 278 UNITS/KG/HR 10 mls/hr IV .Q24H [facility] Rx#: [id number] Oral 660 Output: Urine 1 Other: Voiding Method Toilet # Voids 4 - Labs CBC & Chem 7: 09/30/20 06:42 09/30/20 06:42 Labs: Abnormal Lab Results - Last 24 Hours (Table) 09/29/20 09/30/20 09/30/20 Range/Units 13:50 06:42 06:42 RBC 3.79 L (4.30-5.90) m/uL Hgb 12.1 L (13.0-17.5) gm/dL Hct 36.9 L (39.0-53.0) % Plt Count 75 L (150-450) k/uL APTT 49.6 H 34.3 H (22.0-30.0) sec
[2020-09-30 11:30] LABS: Glucose,Whole Blood 107 mg/dL (75-99)
[2020-09-30] MEDS ORDERED: METOPROLOL TARTRATE 50 MG TAB PO STA (21:38)
[2020-09-30] MEDS ORDERED: cloNIDine 0.2 MG/24HR PATCH TRANSDERM SCH (22:00)
[2020-10-01 04:37] VITALS: TEMP 98.4
[2020-10-01 08:55] VITALS: BP 135/79; PULSE 90; RESP 16
[2020-10-01] MEDS: lisinopriL 20 MG TAB PO SCH (08:56)
[2020-10-01] MEDS ORDERED: METOPROLOL TARTRATE 50 MG TAB PO SCH (09:00)
[2020-10-01 09:08] LABS: HCT 36.3 % (39.0-53.0); HGB 11.3 gm/dL (13.0-17.5); Hypochromasia Slight; MCH 30.3 pg (25.0-35.0); MCHC 31.1 g/dL (31.0-37.0); MCV 97.4 fL (80.0-100.0); Mean Platelet Volume 15.3; RBC 3.73 m/uL (4.30-5.90); RDW 15.6 % (11.5-15.5); WBC 10.3 k/uL (3.8-10.6)
[2020-10-01 09:22] LABS: African American GFR (CKD) >90 (>60 ml/min/1.73 sqM); Anion Gap 7 mmol/L; Blood Urea Nitrogen 16 mg/dL (9-20); Calcium 8.5 mg/dL (8.4-10.2); Carbon Dioxide 25 mmol/L (22-30); Chloride 106 mmol/L (98-107); Glucose 104 mg/dL (74-99); Magnesium 1.7 mg/dL (1.6-2.3); Non-African American GFR(CKD) 80 (>60 ml/min/1.73 sqM); Platelet Count 76 k/uL (150-450); Potassium 3.9 mmol/L (3.5-5.1); Sodium 138 mmol/L (137-145)
--- NOTE | 2020-10-01 09:42 | P.PN ---
Subjective HISTORY OF PRESENTING ILLNESS Patient is a pleasant 74-year-old male with history of chronic back pain, left hand neuropathy and varicose veins who presents secondary to episodes of dizziness and diaphoresis. He states that 2:00 in the morning he got up from bed to go use the bathroom and then on the walk there was feeling somewhat lightheaded. He started breaking out in a sweat and felt like he could not quite catch his breath. Patient denies any palpitations. No prior history of A. fib. He was found to be in A. fib with mild RVR with heart rates 110s and 120s and was given Cardizem drip, currently at 5. He states that after coming t o the emergency department to sweating slowly improved and now he feels somewhat back to normal. 10/01/2020 Pt seen and examined sitting up with his at the bedside. He had hypertension last night, clonidine patch was added and lopressor increased. Current blood pressures stable in the 130s systolic. Right radial access site stable with no hematoma or bleeding. PHYSICAL EXAMINATION CONSTITUTIONAL: No apparent distress. HEENT: Head is normocephalic. Pupils are equal, round. Sclerae anicteric. Mucous membranes of the mouth are moist. No JVD. No carotid bruit. CHEST EXAMINATION: Lungs are clear to auscultation. No chest wall tenderness is noted on palpation or with deep breathing. HEART EXAMINATION: Regular rate and rhythm. S1, S2 heard. No murmurs, gallops or rub. EXTREMITIES: 2+ peripheral pulses, no lower extremity edema and no calf tenderness. Right radial access site soft, non-tender, no hematoma or bleeding. ASSESSMENT Non-STEMI, possible type II mechanism however did not appear to have significant A. fib with RVR, mild RVR and concerning for possible type I mechanism. Acute onset of lightheadedness, diaphoresis and shortness breath. Rule out acute coronary syndrome Hypertension New-onset A. fib with mild RVR, persistent Thrombocytopenia PLAN Continue clonidine patch currently for hypertension and possible withdrawal. Follow up with Dr. Guillaume in 1 week. Nurse Practitioner note has been reviewed, I agree with a documented findings and plan of care. Patient was seen and examined. Objective - Vital Signs Vital signs: Vital Signs Temp 98.4 F 10/01/20 04:36 Pulse 90 10/01/20 08:55 Resp 16 10/01/20 08:55 BP 135/79 08/17/21 08:55 Pulse Ox 98 10/01/20 08:55 Intake & Output 09/30/20 10/01/20 10/01/20 18:59 06:59 18:59 Intake Total 850 240 Output Total 600 Balance 250 240 Weight 99.6 kg Intake: IV 50 Oral 800 240 Output: Urine 600 Other: Voiding Method Toilet # Voids 1 - Labs CBC & Chem 7: 10/01/20 08:40 10/01/20 08:40 Labs: Abnormal Lab Results - Last 24 Hours (Table) 09/30/20 10/01/20 10/01/20 Range/Units 11:29 08:40 08:40 RBC 3.73 L (4.30-5.90) m/uL Hgb 11.3 L (13.0-17.5) gm/dL Hct 36.3 L (39.0-53.0) % RDW 15.6 H (11.5-15.5) % Plt Count 76 L (150-450) k/uL Glucose 104 H (74-99) mg/dL POC Glucose (mg/dL) 107 H (75-99) mg/dL
--- NOTE | 2020-10-01 10:46 | P.DS ---
<Christian Bennett - Last Filed: 10/01/20 10:26> Providers Expected date of discharge: 10/01/20 Hospital Course: Discharge Diagnosis: Presyncopal episode due to A. fib with RVR, acute coronary event ruled out Atrial fibrillation with RVR Elevated troponins secondary to Type II MD due to atrial fibrillation with episode of RVR Hypertension Thrombocytopenia Chronic back pain Hospital Course: Patient is a 74-year-old male with a past medical history of chronic back pain and varicose veins who does not follow with a PCP and presented to the ED on 09/28/20 with a chief complaint of dizziness, diaphoresis and near syncope. Patient reportedly got up to use the restroom and the dizziness and diaphoresis came on suddenly accompanied by a feeling as though he was going to pass out, he states the symptoms resolved by the time he got back to bed and this is when his reportedly checked on him and found him to have an irregular heartbeat and called the ambulance. Upon arrival to the emergency department patient was found to be in A. fib RVR requiring placement on Cardizem drip and anticoagulation with Eliquis. An EKG was obtained showing A. fib with a controlled ventricular rate at [address] was completed revealing mild atrophy and chronic small vessel ischemia with no acute intercranial abnormalities. CT PE was completed negative for pulmonary embolism however did reveal a 4.3 cm thoracic aortic aneurysm in the ascending aorta. Patient underwent an echocardiogram revealing a normal EF of 55-60% with mild mitral and tricuspid regurgitation. Patient underwent cardiac catheterization on 09/30/20. Cardiac catheterization revealed normal coronary arteries. Patient was monitored overnight after cardiac cath secondary to thrombocytopenia and increased risk of bleeding. Cardiac cath site intact with no bleeding, swelling, redness, or hematoma present. Anticoagulation and to be held per cardiology until follow-up visit in office in 1 week and they will determine his need for further anticoagulation at that time. Pt also had persistent hypertension throughout admission and was placed on metoprolol, lisinopril, and after adjustments of these medications he was also placed on a clonidine patch for 7 days. Patient was cleared from cardiology standpoint and is currently medically clear for discharge home at this time. Patient and his were educated on importance of establishing a primary care provider and following up in office as well as following up with industrial arts teacher in 1 week as we discussed. Physical exam: Patient seen and fully evaluated at bedside. He was sitting up in the chair visiting with at bedside. He denies having any complaints at this time including chest pain, palpitations, shortness of breath, nausea, or vomiting. Vital signs reviewed and stable. General: Nontoxic, no distress and appears stated age. Derm: Skin warm and dry, normal coloration for ethnicity. cardiac cath site to right wrist with TR band in place, no signs of bleeding or hematoma present. Head: Atraumatic, normocephalic and symmetric. Eyes: EOMs intact, no lid lag, and anicteric sclera Mouth: no lip lesions, mucus membranes moist Cardiovascular: Irregularly irregular hythm with normal S1S2, no murmur, positive posterior tibial pulses bilaterally, and cap refill < 2 seconds. Lungs: Respirations even, regular, and unlabored on room air. Lungs CTA bilaterally, no rhonchi, no rales, no wheezing, and no accessory muscle usage. Abdominal: soft, nontender to palpation, no guarding, no appreciable organ omegaly Ext: ROM intact. No gross muscle atrophy, no edema, no contractures Neuro: Speech clear, face symmetrical and CN II-XII grossly intact with no noted focal neuro deficits Psych: Alert and oriented to person, place, time, and situation. Appropriate and pleasant affect. A total of 45 minutes of time were spent preparing this complex discharge summary. Patient Condition at Discharge: Stable Plan - Discharge Summary Discharge Rx Participant: No New Discharge Prescriptions: New Metoprolol Tartrate [Lopressor] 100 mg PO BID 30 Days #120 tab lisinopriL [Zestril] 40 mg PO DAILY 30 Days #60 tab Continue Ibuprofen [Motrin Ib] 400 mg PO Q6H PRN PRN Reason: CHRONIC BACK PAIN Discharge Medication List Ibuprofen [Motrin Ib] 400 mg PO Q6H PRN 09/28/20 [History] Metoprolol Tartrate [Lopressor] 100 mg PO BID 30 Days #120 tab 10/01/20 [Rx] lisinopriL [Zestril] 40 mg PO DAILY 30 Days #60 tab 10/01/20 [Rx] Follow up Appointment(s)/Referral(s): Isaac Guillaume DO [STAFF PHYSICIAN] - 1 Week (Spoke to unit receptionist. Office will call with appointment time.) Justin,Hector [STAFF PHYSICIAN] - 1-2 Days (Please call to schedule appointment with primary care physician) Patient Instructions/Handouts: *Surgery [facility] - After Heart Catheterization - Office Engineer Instructions, A-fib (Atrial Fibrillation) (ED), Near Syncope (ED) Activity/Diet/Wound Care/Special Instructions: Activity: As tolerated. Diet: Heart healthy diet. Wound Care: Watch for any bleeding, redness, or swelling at right wrist cardiac catheterization site. Lifting restrictions as discussed with and given to you by cardiology. Special Instructions: It is important for you to establish care with a primary care provider. The name of a local primary doctor has been provided for you. You should monitor your blood pressure and heart rate once daily and keep a journal to document in daily. An automated blood pressure cuff can be purchased at any local pharmacy. This journal should be brought with you to your future doctor appointments. You will need to follow-up with cardiology, Dr. Guillaume in one week. Thank you for allowing us to participate in your care, it was a pleasure having you for a patient!! Discharge Disposition: HOME SELF-CARE <Rhonda Mahmood A - Last Filed: 10/01/20 20:05> Providers Date of admission: 09/28/20 06:07 Attending physician: Bonnie Galvan MD Consults: 09/28/20 06:05 Consult Physician Urgent Consulting Provider: Reymundo Coppola Consult Reason/Comments: afib Do you want consulting provider notified?: Yes Primary care physician: Stated None Hospital Course: Christian Bennett NP rendered care for this patient independently, reviewed the findings and plan as documented in the note above. I did not physically speak with or examine the patient on this date. D/C orders reviewed and in agreement w ith plan
== END 2020-10-01 11:14 | disposition home or self-care (01) | DRG 282 ==
LOC: EC 03:33 → 3SCARD 06:07
PROVIDERS: ADMIT Internal Medicine; ATTEND Internal Medicine
PROC: 4A023N7 Measurement of Cardiac Sampling and Pressure, Left Heart, Percutaneous Approach (ICD-10-PCS; principal; 2020-09-30 10:20)
PROC: B2111ZZ Fluoroscopy of Multiple Coronary Arteries using Low Osmolar Contrast (ICD-10-PCS; principal; 2020-09-30 10:20)
DX: I48.19 Other persistent atrial fibrillation (principal); I21.A1 Myocardial infarction type 2; D69.6 Thrombocytopenia, unspecified; I71.2 Thoracic aortic aneurysm, without rupture; I10 Essential (primary) hypertension; I08.1 Rheumatic disorders of both mitral and tricuspid valves; G62.9 Polyneuropathy, unspecified; G89.29 Other chronic pain; M54.9 Dorsalgia, unspecified; I83.90 Asymptomatic varicose veins of unspecified lower extremity; E66.9 Obesity, unspecified; Z68.29 Body mass index [BMI] 29.0-29.9, adult; Z90.89 Acquired absence of other organs; Z87.19 Personal history of other diseases of the digestive system; Z87.2 Personal history of diseases of the skin and subcutaneous tissue; Z98.890 Other specified postprocedural states; W19.XXXA Unspecified fall, initial encounter; Y92.009 Unspecified place in unspecified non-institutional (private) residence as the place of occurrence of the external cause; Z88.2 Allergy status to sulfonamides
CPT/HCPCS: 36415; 70450; 71275; 80048; 80053; 80061; 81003; 82550; 83605; 83735; 84100; 84484; 85025; 85027; 85610; 85730; 93005; 93306; 93458; 96361; 96374; 96375; 99291

== ENCOUNTER → 2022-10-26 | Outpatient (CLI) | payer MEDICARE, BC ==
--- NOTE | 2022-10-26 08:44 | XR ---
EXAMINATION TYPE: XR chest 2V DATE OF EXAM: 10/26/2022 8:40 AM COMPARISON: CTA chest 09/28/2020 TECHNIQUE: XR chest 2V Frontal and lateral views of the chest. CLINICAL INDICATION:Male, 76 years old with history of C61 PROSTATE CANCER; FINDINGS: Lungs/Pleura: There is no evidence of pleural effusion, focal consolidation, or pneumothorax. Pulmonary vascularity: Unremarkable. Heart/mediastinum: Cardiomediastinal silhouette is unremarkable. Atherosclerotic calcifications are seen in the aorta. Musculoskeletal: No acute osseous pathology. Multilevel degenerative changes of the visualized spine. S-shaped sclerotic curvature. IMPRESSION: No acute cardiopulmonary disease/process.
[2022-10-26 09:04] LABS: African American GFR (CKD) 20 (>60 ml/min/1.73 sqM); Non-African American GFR(CKD) 18 (>60 ml/min/1.73 sqM)
[2022-10-26 09:16] LABS: Blood Urea Nitrogen 110 mg/dL (9-20)
--- NOTE | 2022-10-26 10:49 | CT ---
EXAMINATION TYPE: CT abdomen pelvis wo con DATE OF EXAM: 10/26/2022 COMPARISON: None HISTORY: Hx prostate ca CT DLP: 399.30 mGycm Examination of the solid and hollow viscera is limited given the lack of contrast. FINDINGS: LUNG BASES: No evidence for nodule. No evidence for infiltrate. LIVER/GB: The gallbladder is unremarkable. No space-occupying hepatic lesion. PANCREAS: No pancreatic mass identified. No inflammatory process seen. SPLEEN: Splenomegaly at 13.3 cm craniocaudal dimension. No intrasplenic lesions seen. ADRENALS: No adrenal nodules identified. No evidence for thickening. KIDNEYS: There is a low-lying left-sided kidney which is partially intrapelvic in location. 5 mm nono bstructing calculus lower pole right kidney. 2.3 mm calculi lower pole left kidney. There is a calcul us at the left UVJ with mild left-sided hydronephrosis suggested. No evidence for renal mass. Lawton c atheter is seen within a decompressed urinary bladder. BOWEL: Appendix has a normal appearance. No evidence of bowel obstruction. No inflammatory process. Lymph nodes: No evidence for adenopathy greater than 1 cm. Abdominal aorta: Atheromatous changes seen. No evidence for aneurysm. Genital organs: No significant abnormality. Other: There is a destructive bone lesion noted of the left superior pubic ramus and ischium as well as the left inferior pubic ramus. There is a lesion noted of the right lesser trochanter. There are s clerotic lesions noted to involve the L3 and T11 segments. IMPRESSION: 1. Findings compatible with bony metastatic disease. 2. Splenomegaly. 3. Low-lying left kidney with a suggestion of mild hydronephrosis possibly secondary to a calculus in the region of the left UVJ.
--- NOTE | 2022-10-26 14:43 | NM ---
EXAMINATION TYPE: NM bone scan whole body DATE OF EXAM: 10/26/2022 COMPARISON: CT abdomen pelvis 10/26/2022, CTA chest 09/28/2020, chest radiograph 10/26/2022 CLINICAL INDICATION: Male, 76 years old with history of C61 PROSTATE CANCER; Delayed whole-body scanning was performed following the injection of 23.9 mCi Tc 99m MDP. Images acq uired 4 hours post injection. FINDINGS: Abnormal increased radiotracer uptake identified within the right scapula, the bilateral ribs, thorac olumbar spine, and bilateral pelvic bones with most prominent involvement including the left hemisacr um and left inferior and superior pubic rami. Additional foci involving the bilateral iliac bones and bilateral proximal femurs. Physiologic radiotracer activity is demonstrated in the kidneys and bladder. Radiotracer activity is identified within the Law[place] catheter. IMPRESSION: Findings consistent with osseous metastatic disease as described above.
== END | disposition home or self-care (01) ==
LOC: RADCTMAIN 08:12
PROVIDERS: ATTEND Urology
DX: C61 Malignant neoplasm of prostate (principal); R16.1 Splenomegaly, not elsewhere classified
CPT/HCPCS: 82565; 84520; 71046; 74176; 36415; 78306; A9503

== ENCOUNTER 2022-11-11 17:13 | Inpatient (IN) | payer MEDICARE, BC ==
[2022-11-11] MEDS ORDERED: SODIUM CHLORIDE 0.9% 1,000 ML IV STA ×3 (17:24→18:19)
[2022-11-11] MEDS ORDERED: ACETAMINOPHEN TAB 500 MG TAB PO STA (17:24)
[2022-11-11] MEDS ORDERED: IBUPROFEN 600 MG TAB PO STA (17:24)
[2022-11-11 18:00] LABS: HCT 24.2 % (39.0-53.0); HGB 7.9 gm/dL (13.0-17.5); Hypochromasia Slight; MCH 29.5 pg (25.0-35.0); MCHC 32.5 g/dL (31.0-37.0); Mean Platelet Volume 15.6; Platelet Count 154 k/uL (150-450); RBC 2.66 m/uL (4.30-5.90); RDW 15.5 % (11.5-15.5); WBC 22.9 k/uL (3.8-10.6)
--- NOTE | 2022-11-11 18:08 | ED ---
General Adult HPI - General Chief complaint: Fever Stated complaint: Fever Time Seen by Provider: 11/11/22 17:17 Source: patient, EMS, RN notes reviewed, old records reviewed Mode of arrival: EMS Limitations: no limitations - History of Present Illness Initial comments: Patient is a 76-year-old male who presents emergency Department from home complaining of high fever and weakness. Patient has a history of metastatic prostate cancer with chronic Lawton catheter in place. Patient's been feeling weak with a fever for multiple days. Denies any cough. Denies any nausea or vomiting. Denies diarrhea. Denies abdominal pain or chest pain. His no other acute complaint at this time. Presents for further evaluation at this time. Unknown source for the patient's infection at this time. However patient has noticed more cloudy urine lately. He is in agreement that infection likely from his urine. - Related Data Home Medications Medication Instructions Recorded Confirmed Acetaminophen [Tylenol Arthritis] 1,300 mg PO Q6H PRN 11/11/22 11/11/22 Enzalutamide [Xtandi] 160 mg PO DAILY 11/11/22 11/11/22 Allergies Allergy/AdvReac Type Severity Reaction Status Date / Time Sulfa (Sulfonamide Allergy Hallucinati Verified 11/11/22 18:52 Antibiotics) ons Review of Systems ROS Statement: Those systems with pertinent positive or pertinent negative responses have been documented in the HPI. Review of Systems: CONST: Endorses fever EYES: Denies blurry vision ENT: Denies nasal congestion C/V: Denies Chest pain RESP: Denies shortness of breath GI: Denies abdominal pain : Denies dysuria SKIN: Denies rash. MSK: Denies joint pain. NEURO: Denies headache ROS Other: All systems not noted in ROS Statement are negative. Past Medical History Past Medical History: No Reported History, Cancer Additional Past Medical History / Comment(s): back pain, prostate cancer, bone cancer, pancreatic cancer History of Any Multi-Drug Resistant Organisms: None Reported Past Surgical History: Hernia Repair, Tonsillectomy Additional Past Surgical History / Comment(s): fatty tumor removd right arm, oral surgery Past Anesthesia/Blood Transfusion Reactions: No Reported Reaction Past Psychological History: No Psychological Hx Reported Smoking Status: Never smoker Past Alcohol Use History: Daily Past Drug Use History: None Reported General Exam - General Exam Comments Initial Comments: General: Appears in no acute distress. Febrile. HEAD: Normal with no signs of head trauma. EYES: PERRLA, EOMI, conjunctiva normal, no discharge. ENT: Hearing grossly intact, normal oropharynx. RESPIRATORY: Clear breath sounds bilaterally. No wheezes, rales, or rhonchi. C/V: Regular rate and rhythm. S1 and S2 auscultated, no edema, peripheral pulses 2+ and intact throughout ABD: Abd is soft, nontender, nondistended : Lawton catheter in place with cloudy urine in the Lawton bag. EXT: Normal range of motion, no obvious deformity SKIN: No rashes or lesions observed on exposed skin. NEURO: Alert and oriented 4. No focal deficits. Patient has generalized focal weakness. Limitations: no limitations Course Vital Signs 11/11/22 11/11/22 11/11/22 17:21 17:27 17:30 Temperature 103.1 F H Pulse Rate 116 H 122 H Respiratory 28 H 28 H 24 Rate Blood Pressure 108/53 107/59 O2 Sat by Pulse 97 99 Oximetry 11/11/22 11/11/22 11/11/22 18:51 19:55 20:41 Temperature 98.5 F Pulse Rate 99 99 95 Respiratory 26 H 31 H 30 H Rate Blood Pressure 101/50 94/42 88/47 O2 Sat by Pulse 92 L 98 99 Oximetry 11/11/22 11/11/22 21:12 21:15 Temperature Pulse Rate 96 Respiratory 12 Rate Blood Pressure 89/52 97/53 O2 Sat by Pulse 97 Oximetry Procedures - Sepsis Sepsis Focused Exam #1 Time Sepsis Criteria Met: 18:17 Sepsis Focused Exam Date: 11/11/22 Sepsis Focused Exam Time: 21:15 Sepsis Focused Exam Complete: Yes Vital Signs & RN Notes Reviewed: Yes Capillary Refill: > 2 Seconds: Fingers, Toes Peripheral Pulses: Normal: Radial (R), Radial (L) Skin Color: Normal for Patient Respiratory Exam: normal lung sounds Cardiovascular Exam: regular rate, normal rhythm Medical Decision Making - Medical Decision Making Was pt. sent in by a medical professional or institution (, PA, OUTSIDE COLLECTOR, urgent care, hospital, or fdc...) When possible be specific @ -No Did you speak to anyone other than the patient for history (EMS, parent, family, police, friend...)? What history was obtained from this source @ -No Did you review nursing and triage notes (agree or disagree)? Why? @ -I reviewed and agree with nursing and triage notes Were old charts reviewed (outside hosp., previous admission, EMS record, old EKG, old radiological studies, urgent care reports/EKG's, fdc records)? Report findings @ -No old charts were reviewed Differential Diagnosis (chest pain, altered mental status, abdominal pain women, abdominal pain men, vaginal bleeding, weakness, fever, dyspnea, syncope, headache, dizziness, GI bleed, back pain, seizure, CVA, palpatations, mental health, musculoskeletal)? @ -Differential Fever: Pneumonia, viral URI, endocarditis, myocarditis, pericarditis, otitis, sinusitis, peritonsillar Abscess, retropharyngeal Abscess, epiglottitis, peritonitis, appendicitis, Nayeli cystitis, diverticulitis, hepatitis, colitis, UTI, PID, TOA, pyelonephritis, prostatitis, epididymitis, meningitis, encephalitis, pulmonary embolism, CVA, thyroid storm, pancreatitis, adrenal crisis, cavernous sinus thrombosis, this is not meant to be an all-inclusive list. Differential Weakness: Hypoglycemia, shock, sepsis, hyponatremia, anemia, infection, [place], ETOH, adverse medicine reaction, overdose, stroke, this is not meant to be an all-inclusive list. EKG interpreted by me (3pts min.). @ -As above X-rays interpreted by me (1pt min.). @ -Chest x-ray does reveal a possible posterior infiltrate. CT interpreted by me (1pt min.). @ -None done U/S interpreted by me (1pt. min.). @ -None done What testing was considered but not performed or refused? (CT, X-rays, U/S, labs)? Why? @ -None What meds were considered but not given or refused? Why? @ -None Did you discuss the management of the patient with other professionals (professionals i.e. , PA, OUTSIDE COLLECTOR, lab, RT, psych nurse, adoption social worker, business lawyer, teacher, soil science technical officer, employment case manager)? Give summary @ -Yes, spoke with Dr. shepherd who accepted the admission and recommended I switch Zosyn to cefepime. Was smoking cessation discussed for >3mins.? @ -No Was critical care preformed (if so, how long)? @ -Yes, 52 minutes. Were there social determinants of health that impacted care today? How? (Homelessness, low income, unemployed, alcoholism, drug addiction, transportation, low edu. Level, literacy, decrease access to med. care, intermediate, rehab)? @ -No Was there de-escalation of care discussed even if they declined (Discuss DNR or withdrawal of care, Hospice)? DNR status @ -Yes, patient made DO NOT RESUSCITATE, DO NOT INTUBATE. Discussion was made with the patient as well as his who both agree with the plan. Discussed regarding patient's prognosis. Vasopressors are okay as are other medications. What co-morbidities impacted this encounter? (DM, HTN, Smoking, COPD, CAD, Cancer, CVA, ARF, Chemo, Hep., AIDS, mental health diagnosis, sleep apnea, morbid obesity)? @ -None Was patient admitted / discharged? Hospital course, mention meds given and route, prescriptions, significant lab abnormalities, going to OR and other pertinent info. @ -Based on the patient's presentation and physical exam, presents febrile with concern for infection at this time. We will obtain infectious labs as well as blood cultures. We will swab out his Lawton catheter. Concern for UTI at this time. Patient will be started on IV fluids at 1 L and then started on maintenance fluids at 1 30 mL an hour. He'll be given Tylenol and Motrin for fever. Patient was in agreement this plan. EKG showed no signs of acute ischemia. Chest x-ray shows possible posterior infiltrate. Patient's laboratory studies are remarkable for leukocytosis of 22.9, anemia of 7.9, lactic acidosis of 4.8, acute kidney injury with a BUN of 75 and creatinine of 4.68. Urinalysis was delayed but does show a UTI. Vital signs negative. When labs return, at 1817 patient met criteria for sepsis. Patient already given 1 L fluid bolus and started on 1 30 mL an hour. Given an additional 1.5 L of fluid. Patient started on broad-spectrum vancomycin, Zosyn. Patient was in agreement this plan. I did the patient as well as his . We did discuss end-of-life care and the decision was made to make the patient DNR/DNI. Vasopressors are okay. I spoke with the admitting physician, Dr. shepherd who accepted the admission. Requested I consult Dr. Lanier of infectious disease which was completed. He also requested that I switch Zosyn to cefepime which was done. Patient reevaluated multiple times and vital signs remained within acceptable limits. We'll closely monitor at this time. Undiagnosed new problem with uncertain prognosis? @ -No Drug Therapy requiring intensive monitoring for toxicity (Heparin, Nitro, Insulin, Cardizem)? @ -No Were any procedures done? @ -No Diagnosis/symptom? @ -Sepsis, suspect from UTI and possible pneumonia. Acute, or Chronic, or Acute on Chronic? @ -Acute Uncomplicated (without systemic symptoms) or Complicated (systemic symptoms)? @ -Complicated Side effects of treatment? @ -none Exacerbation, Progression, or Severe Exacerbation] @ -no Poses a threat to life or bodily function? @ -Yes Diagnosis/symptom? @ -Acute kidney injury, dehydration, lactic acidosis Acute, or Chronic, or Acute on Chronic? @ -Acute Uncomplicated (without systemic symptoms) or Complicated (systemic symptoms)? @ -Complicated Side effects of treatment? @ -none Exacerbation, Progression, or Severe Exacerbation] @ -no Poses a threat to life or bodily function? @ -Yes Diagnosis/symptom? @ -Prostate cancer, metastatic Acute, or Chronic, or Acute on Chronic? @ -Chronic Uncomplicated (without systemic symptoms) or Complicated (systemic symptoms)? @ -Complicated Side effects of treatment? @ -none Exacerbation, Progression, or Severe Exacerbation] @ -no Poses a threat to life or bodily function? @ -yes - Lab Data Result diagrams: 11/11/22 17:49 11/11/22 17:49 Lab Results 11/11/22 11/11/22 11/11/22 Range/Units 17:49 17:49 17:49 WBC 22.9 H (3.8-10.6) k/uL RBC 2.66 L (4.30-5.90) m/uL Hgb 7.9 L (13.0-17.5) gm/dL Hct 24.2 L (39.0-53.0) % MCV 91.0 (80.0-100.0) fL MCH 29.5 (25.0-35.0) pg MCHC 32.5 (31.0-37.0) g/dL RDW 15.5 (11.5-15.5) % Plt Count 154 (150-450) k/uL MPV 15.6 Neutrophils % (Manual) 78 % Band Neuts % (Manual) 2 % Lymphocytes % (Manual) 2 % Monocytes % (Manual) 19 % Neutrophils # (Manual) 18.30 H (1.3-7.7) k/uL Lymphocytes # (Manual) 0.46 L (1.0-4.8) k/uL Monocytes # (Manual) 4.35 H (0-1.0) k/uL Nucleated RBCs 0 (0-0) /100 WBC Manual Slide Review Performed Hypochromasia Slight Sodium 131 L (137-145) mmol/L Potassium 4.7 (3.5-5.1) mmol/L Chloride 103 (98-107) mmol/L Carbon Dioxide 12 L (22-30) mmol/L Anion Gap 16 mmol/L BUN 75 H (9-20) mg/dL Creatinine 4.68 H (0.66-1.25) mg/dL Est GFR (CKD-EPI)AfAm 13 (>60 ml/min/1.73 sqM) Est GFR (CKD-EPI)NonAf 11 (>60 ml/min/1.73 sqM) Glucose 84 (74-99) mg/dL Lactic Ac Sepsis Rflx Plasma Lactic Acid Matt 4.8 H* (0.7-2.0) mmol/L Calcium 7.8 L (8.4-10.2) mg/dL Total Bilirubin 0.9 (0.2-1.3) mg/dL AST 29 (17-59) U/L ALT 23 (4-49) U/L Alkaline Phosphatase 114 (38-126) U/L Total Protein 7.5 (6.3-8.2) g/dL Albumin 3.3 L (3.5-5.0) g/dL Urine Color Urine Appearance (Clear) Urine pH (5.0-8.0) Ur Specific [place] (1.001-1.035) Urine Protein (Negative) Urine Glucose (UA) (Negative) Urine Ketones (Negative) Urine Blood (Negative) Urine Nitrite (Negative) Urine Bilirubin (Negative) Urine Urobilinogen (<2.0) mg/dL Ur Leukocyte Esterase (Negative) Urine RBC (0-5) /hpf Urine WBC (0-5) /hpf Urine WBC Clumps (None) /hpf Urine Bacteria (None) /hpf Influenza Type A (PCR) (Not Detectd) Influenza Type B (PCR) (Not Detectd) RSV (PCR) (Not Detectd) SARS-CoV-2 (PCR) (Not Detectd) 11/11/22 11/11/22 11/11/22 Range/Units 17:49 18:11 19:14 WBC (3.8-10.6) k/uL RBC (4.30-5.90) m/uL Hgb (13.0-17.5) gm/dL Hct (39.0-53.0) % MCV (80.0-100.0) fL MCH (25.0-35.0) pg MCHC (31.0-37.0) g/dL RDW (11.5-15.5) % Plt Count (150-450) k/uL MPV Neutrophils % (Manual) % Band Neuts % (Manual) % Lymphocytes % (Manual) % Monocytes % (Manual) % Neutrophils # (Manual) (1.3-7.7) k/uL Lymphocytes # (Manual) (1.0-4.8) k/uL Monocytes # (Manual) (0-1.0) k/uL Nucleated RBCs (0-0) /100 WBC Manual Slide Review Hypochromasia Sodium (137-145) mmol/L Potassium (3.5-5.1) mmol/L Chloride (98-107) mmol/L Carbon Dioxide (22-30) mmol/L Anion Gap mmol/L BUN (9-20) mg/dL Creatinine (0.66-1.25) mg/dL Est GFR (CKD-EPI)AfAm (>60 ml/min/1.73 sqM) Est GFR (CKD-EPI)NonAf (>60 ml/min/1.73 sqM) Glucose (74-99) mg/dL Lactic Ac Sepsis Rflx Y Plasma Lactic Acid Matt (0.7-2.0) mmol/L Calcium (8.4-10.2) mg/dL Total Bilirubin (0.2-1.3) mg/dL AST (17-59) U/L ALT (4-49) U/L Alkaline Phosphatase (38-126) U/L Total Protein (6.3-8.2) g/dL Albumin (3.5-5.0) g/dL Urine Color Light Red Urine Appearance Turbid (Clear) Urine pH 6.0 (5.0-8.0) Ur Specific [place] 1.014 (1.001-1.035) Urine Protein 2+ H (Negative) Urine Glucose (UA) Negative (Negative) Urine Ketones Negative (Negative) Urine Blood Large H (Negative) Urine Nitrite Positive (Negative) Urine Bilirubin Negative (Negative) Urine Urobilinogen <2.0 (<2.0) mg/dL Ur Leukocyte Esterase Large H (Negative) Urine RBC 158 H (0-5) /hpf Urine WBC >182 H (0-5) /hpf Urine WBC Clumps Many H (None) /hpf Urine Bacteria Many H (None) /hpf Influenza Type A (PCR) Not Detected (Not Detectd) Influenza Type B (PCR) Not Detected (Not Detectd) RSV (PCR) Not Detected (Not Detectd) SARS-CoV-2 (PCR) Not Detected (Not Detectd) - EKG Data -: EKG Interpreted by Me EKG Comments: 12-lead Electrocardiogram Interpretation Note EKG was reviewed and interpreted by myself. 12-lead ECG performed at 1820 is interpreted by me as revealing sinus tachycardia at a rate of 102 beats per minute. [place] is normal. CO interval is 167 ms, QRS durations 102 ms, QTc is 391 ms.. There were no ST or T wave abnormalities to suggest myocardial ischemia or injury. R wave progression across the precordium was satisfactory. By my interpretation this EKG is non-diagnostic for acute ischemia. Critical Care Time Critical Care Time: Yes Total Critical Care Time: 52 Disposition Clinical Impression: Sepsis, Acute renal failure, Metastatic cancer, Dehydration, UTI (urinary tract infection), Pneumonia Disposition: ADMITTED IP TO THIS HOSP Condition: Serious Time of Disposition: 19:15
[2022-11-11 18:10] LABS: ALT 23 U/L (4-49); AST 29 U/L (17-59); African American GFR (CKD) 13 (>60 ml/min/1.73 sqM); Albumin 3.3 g/dL (3.5-5.0); Alkaline Phosphatase 114 U/L (38-126); Anion Gap 16 mmol/L; Blood Urea Nitrogen 75 mg/dL (9-20); Calcium 7.8 mg/dL (8.4-10.2); Carbon Dioxide 12 mmol/L (22-30); Chloride 103 mmol/L (98-107); Glucose 84 mg/dL (74-99); Non-African American GFR(CKD) 11 (>60 ml/min/1.73 sqM); Potassium 4.7 mmol/L (3.5-5.1); Sodium 131 mmol/L (137-145); Total Bilirubin 0.9 mg/dL (0.2-1.3); Total Protein 7.5 g/dL (6.3-8.2)
[2022-11-11] MEDS ORDERED: VANCOMYCIN IV PER PHARMACY 1 EACH MISC MISCELLANE PRN (18:18)
[2022-11-11] MEDS ORDERED: PIPERACILLIN-TAZOBACTAM 3.375 GM in SODIUM CHLORIDE 0.9% 100 ML IVPB STA (18:21)
[2022-11-11] MEDS ORDERED: VANCOMYCIN 1,500 MG in SODIUM CHLORIDE 0.9% 500 ML 500 ML IVPB ONE (18:30)
[2022-11-11 18:43] LABS: Band Neutrophils % 2 %; Lymphocytes # (M) 0.46 k/uL (1.0-4.8); Monocytes # (M) 4.35 k/uL (0-1.0); Neutrophils % (M) 78 %; Nucleated Red Blood Cells 0 /100 WBC (0-0); Total Cells Counted 200
[2022-11-11] MEDS ORDERED: NALOXONE 0.4 MG/ML 1 ML VIAL IV PRN (19:29)
--- NOTE | 2022-11-11 19:36 | XR ---
EXAMINATION TYPE: XR chest 2V DATE OF EXAM: 11/11/2022 COMPARISON: 10/26/2022 INDICATION: Dyspnea TECHNIQUE: Frontal and lateral views of the chest are obtained. FINDINGS: The heart size is normal. The pulmonary vasculature is normal. Appears to be posterior infiltrate on the lateral projection. Lungs are otherwise clear.. IMPRESSION: 1. Posterior infiltrate. Correlate for atelectasis or pneumonia. Follow-up can be performed.
[2022-11-11] MEDS ORDERED: SODIUM CHLORIDE 0.9% 500 ML 500 ML IV STA (20:22)
[2022-11-11 21:10] LABS: Appearance,Urine Turbid (Clear); Bacteria,Urine Many /hpf; Bilirubin,Urine Negative (Negative); Blood,Urine Large (Negative); Color,Urine Light Red; Glucose,Urine (UA) Negative (Negative); Ketones,Urine Negative (Negative); Leukocyte Esterase,Urine Large (Negative); Nitrite,Urine Positive (Negative); Protein,Urine 2+ (Negative); RBC,Urine 158 /hpf (0-5); Specific Gravity,Urine 1.014 (1.001-1.035); Urobilinogen,Urine <2.0 mg/dL (<2.0); WBC,Urine >182 /hpf (0-5)
[2022-11-11] MEDS: CEFEPIME 2 GM in SODIUM CHLORIDE 0.9% 100 ML IVPB SCH (22:38)
[2022-11-11] MEDS: ACETAMINOPHEN TAB 325 MG TAB PO PRN (23:24)
[2022-11-12] MEDS ORDERED: PIPERACILLIN-TAZOBACTAM 3.375 GM in SODIUM CHLORIDE 0.9% 100 ML IVPB SCH ×2
[2022-11-12] MEDS: MORPHINE SULFATE 4 MG/ML SYRINGE IV PRN (03:30)
[2022-11-12 04:55] LABS: Hypochromasia Moderate; MCH 28.9 pg (25.0-35.0); MCHC 31.4 g/dL (31.0-37.0); MCV 91.8 fL (80.0-100.0); Mean Platelet Volume 15.7; RBC 2.14 m/uL (4.30-5.90); RDW 15.6 % (11.5-15.5); WBC 30.4 k/uL (3.8-10.6)
[2022-11-12 05:12] LABS: African American GFR (CKD) 13 (>60 ml/min/1.73 sqM); Anion Gap 12 mmol/L; Blood Urea Nitrogen 69 mg/dL (9-20); Calcium 6.9 mg/dL (8.4-10.2); Carbon Dioxide 11 mmol/L (22-30); Chloride 108 mmol/L (98-107); Glucose 102 mg/dL (74-99); Non-African American GFR(CKD) 11 (>60 ml/min/1.73 sqM); Potassium 4.7 mmol/L (3.5-5.1); Sodium 131 mmol/L (137-145)
[2022-11-12] MEDS: CEFEPIME 2 GM in SODIUM CHLORIDE 0.9% 100 ML IVPB SCH (05:37)
[2022-11-12 06:05] LABS: HGB 6.2 gm/dL (13.0-17.5)
[2022-11-12 06:09] LABS: HCT 19.7 % (39.0-53.0)
[2022-11-12] MEDS ORDERED: SODIUM CHLORIDE 0.9% 500 ML 500 ML IV ONE (06:42)
[2022-11-12 06:53] LABS: Band Neutrophils % 3 %; Lymphocytes # (M) 3.04 k/uL (1.0-4.8); Monocytes # (M) 3.95 k/uL (0-1.0); Neutrophils % (M) 74 %; Nucleated Red Blood Cells 0 /100 WBC (0-0); Total Cells Counted 100
[2022-11-12 06:54] LABS: Large Platelets Present; Platelet Count 121 k/uL (150-450); Poikilocytosis (M) Present
[2022-11-12 06:55] LABS: Toxic Granulation Present
[2022-11-12] MEDS: PANTOPRAZOLE 40 MG/10 ML VIAL IVP SCH ×2 (06:57→08:20)
[2022-11-12] MEDS ORDERED: DEXTROSE 5%-0.9% NACL 1,000 ML IV SCH (08:00)
--- NOTE | 2022-11-12 08:01 | P.HPIM ---
History of Present Illness this is a pleasant 76 yo m with past medical history of chronic back pain, coronary artery disease A. fib with RVR, thrombocytopenia, history of prostate cancer, bone cancer (stage IV cancer) Patient was diagnosed with prostate cancer about one month ago with his urologist Dr. Pineda since then he has indwelling Lawton catheter. One day prior to admission patient becomes confused and incoherent as per at bedside he felt very weak and he fell on his way going to the bathroom without losing consciousness. So brought him to the hospital. This morning he is awake alert and oriented 3 but very weak, mildly confused. Denies any specific complaints right now but usually was complaining of from severe back pain that is been improved with morphine here in the emergency room. Also Lawton catheter was transferred to the emergency room for suspicion of infection. Patient denies any chest pain or dyspnea. No colon. No abdominal pain or vomiting or diarrhea. Patient has been complaining of from burning. No neurological complaints. Patient upon dose of supposed to receive a second dose of hormone therapy. Currently is on chemotherapy. On admission he had a fever of 103.1. Blood pressure borderline with systolic 94-103 this morning. Labs reviewed on admission, hemoglobin dropped to 7.9 down to 6.2. WBC 22.9 and 30.4. Platelet count within the reference range. Creatinine elevated 4.62. Elevated lactic acid came back to normal. Sodium 131, potassium 4.7. Liver enzymes not elevated. Urinalysis suspicious for infection Pharmacist not detected. Chest x-ray showed posterior pneumonia possibility. EKG showing sinus tachycardia and [address]-T changes.has Lawton catheter in the emergency room and this morning starting about 500 mL when discussed with staff. This morning he had drop of hemoglobin 7.9 down to 6.2. Patient denies blood per rectum, no black stool Review of Systems Review of systems CONSTITUTIONAL: No fever, no malaise, no fatigue. HEENT: No recent visual problems or hearing problems. Denied any sore throat. CARDIOVASCULAR: No orthopnea, PND, no palpitations, no syncope. PULMONARY: No shortness of breath, no cough, no hemoptysis. GASTROINTESTINAL: No diarrhea, no nausea, no vomiting, no abdominal pain. Normoactive bowel sounds. NEUROLOGICAL: No headaches, no weakness, no numbness. HEMATOLOGICAL: Denies any bleeding or petechiae. GENITOURINARY: Denies any burning micturition, frequency, or urgency. MUSCULOSKELETAL/RHEUMATOLOGICAL: Denies any joint pain, swelling, or any muscle pain. ENDOCRINE: Denies any polyuria or polydipsia. ROS unobtainable: due to mental status Past Medical History Past Medical History: No Reported History, Cancer Additional Past Medical History / Comment(s): back pain, prostate cancer, bone cancer, pancreatic cancer History of Any Multi-Drug Resistant Organisms: None Reported Past Surgical History: Hernia Repair, Tonsillectomy Additional Past Surgical History / Comment(s): fatty tumor removd right arm, ora l surgery Past Anesthesia/Blood Transfusion Reactions: No Reported Reaction Past Psychological History: No Psychological Hx Reported Smoking Status: Never smoker Past Alcohol Use History: Daily Past Drug Use History: None Reported Medications and Allergies Home Medications Medication Instructions Recorded Confirmed Type Acetaminophen [Tylenol Arthritis] 1,300 mg PO Q6H PRN 11/11/22 11/11/22 History Enzalutamide [Xtandi] 160 mg PO DAILY 11/11/22 11/11/22 History Allergies Allergy/AdvReac Type Severity Reaction Status Date / Time Sulfa (Sulfonamide Allergy Hallucinati Verified 11/11/22 18:52 Antibiotics) ons Physical Exam Vitals: Vital Signs Temp Pulse Resp BP Pulse Ox 11/12/22 01:59 89 103/63 11/12/22 00:30 89 20 108/49 95 11/12/22 00:20 91 14 79/44 95 11/12/22 00:12 97.2 F L 87 14 93/57 98 11/11/22 23:31 98.2 F 11/11/22 22:19 66 24 98/60 98 11/11/22 21:15 97/53 11/11/22 21:12 96 12 89/52 97 11/11/22 20:41 95 30 H 88/47 99 11/11/22 19:55 99 31 H 94/42 98 11/11/22 18:51 98.5 F 99 26 H 101/50 92 L 11/11/22 17:30 24 11/11/22 17:27 122 H 28 H 107/59 99 11/11/22 17:21 103.1 F H 116 H 28 H 108/53 97 Intake and Output 11/11/22 11/11/22 11/12/22 14:59 22:59 06:59 Output Total 20 Balance -20 Output: Urine 20 Uretheral (Lawton) 20 Other: Weight 90.718 kg GENERAL: The patient is alert and oriented x3, not in any acute distress. Well developed, well nourished. Pale and generally weak HEENT: Pupils are round and equally reacting to light. EOMI. No scleral icterus. No conjunctival pallor. Normocephalic, atraumatic. No pharyngeal erythema. No thyromegaly. CARDIOVASCULAR: S1 and S2 present. No murmurs, rubs, or gallops. PULMONARY: Chest is clear to auscultation, no wheezing , no crackles. -ABDOMEN: Soft, nontender, nondistended, normoactive bowel sounds. No palpable organomegaly. Lawton catheter in place MUSCULOSKELETAL: No joint swelling or deformity. EXTREMITIES: No cyanosis, clubbing, or pedal edema. NEUROLOGICAL: Gross neurological examination did not reveal any focal deficits. SKIN: No rashes. no petechiae. Results CBC & Chem 7: 11/12/22 04:42 11/12/22 04:42 Labs: Abnormal Lab Results - Last 24 Hours (Table) 11/11/22 11/11/22 11/11/22 Range/Units 17:49 17:49 17:49 WBC 22.9 H (3.8-10.6) k/uL RBC 2.66 L (4.30-5.90) m/uL Hgb 7.9 L (13.0-17.5) gm/dL Hct 24.2 L (39.0-53.0) % RDW (11.5-15.5) % Neutrophils # (Manual) 18.30 H (1.3-7.7) k/uL Lymphocytes # (Manual) 0.46 L (1.0-4.8) k/uL Monocytes # (Manual) 4.35 H (0-1.0) k/uL Sodium 131 L (137-145) mmol/L Chloride (98-107) mmol/L Carbon Dioxide 12 L (22-30) mmol/L BUN 75 H (9-20) mg/dL Creatinine 4.68 H (0.66-1.25) mg/dL Glucose (74-99) mg/dL Plasma Lactic Acid Matt 4.8 H* (0.7-2.0) mmol/L Calcium 7.8 L (8.4-10.2) mg/dL Albumin 3.3 L (3.5-5.0) g/dL Urine Protein (Negative) Urine Blood (Negative) Ur Leukocyte Esterase (Negative) Urine RBC (0-5) /hpf Urine WBC (0-5) /hpf Urine WBC Clumps (None) /hpf Urine Bacteria (None) /hpf 11/11/22 11/11/22 11/12/22 Range/Units 19:14 20:29 01:07 WBC (3.8-10.6) k/uL RBC (4.30-5.90) m/uL Hgb (13.0-17.5) gm/dL Hct (39.0-53.0) % RDW (11.5-15.5) % Neutrophils # (Manual) (1.3-7.7) k/uL Lymphocytes # (Manual) (1.0-4.8) k/uL Monocytes # (Manual) (0-1.0) k/uL Sodium (137-145) mmol/L Chloride (98-107) mmol/L Carbon Dioxide (22-30) mmol/L BUN (9-20) mg/dL Creatinine (0.66-1.25) mg/dL Glucose (74-99) mg/dL Plasma Lactic Acid Matt 3.3 H* 2.6 H* (0.7-2.0) mmol/L Calcium (8.4-10.2) mg/dL Albumin (3.5-5.0) g/dL Urine Protein 2+ H (Negative) Urine Blood Large H (Negative) Ur Leukocyte Esterase Large H (Negative) Urine RBC 158 H (0-5) /hpf Urine WBC >182 H (0-5) /hpf Urine WBC Clumps Many H (None) /hpf Urine Bacteria Many H (None) /hpf 11/12/22 11/12/22 Range/Units 04:42 04:42 WBC 30.4 H (3.8-10.6) k/uL RBC 2.14 L (4.30-5.90) m/uL Hgb 6.2 L* D (13.0-17.5) gm/dL Hct 19.7 L* (39.0-53.0) % RDW 15.6 H (11.5-15.5) % Neutrophils # (Manual) (1.3-7.7) k/uL Lymphocytes # (Manual) (1.0-4.8) k/uL Monocytes # (Manual) (0-1.0) k/uL Sodium 131 L (137-145) mmol/L Chloride 108 H (98-107) mmol/L Carbon Dioxide 11 L (22-30) mmol/L BUN 69 H (9-20) mg/dL Creatinine 4.60 H (0.66-1.25) mg/dL Glucose 102 H (74-99) mg/dL Plasma Lactic Acid Matt (0.7-2.0) mmol/L Calcium 6.9 L (8.4-10.2) mg/dL Albumin (3.5-5.0) g/dL Urine Protein (Negative) Urine Blood (Negative) Ur Leukocyte Esterase (Negative) Urine RBC (0-5) /hpf Urine WBC (0-5) /hpf Urine WBC Clumps (None) /hpf Urine Bacteria (None) /hpf Assessment and Plan Assessment: acute urinary tract infection, associated with indwelling [place] catheter Sepsis secondary to above Acute kidney injury and failure, nonoliguric acute sever anemia requiring blood transufion metabolic encephalopathy History of prostate cancer, colon cancer and pancreatic cancer Paroxysmal A. fib with RVR moderate Severe Chronic back pain, related to his metastatic disease Plan: continue with IV hydration Continue with antibiotic, currently on vancomycin and cefepime is started in the emergency room Infectious disease consult was ordered. I will consult also nephrology service Consult surgery service for severe anemia. transfuse 1 unit of blood and monitor hemoglobin avoid blood thinner Pain management Labs and medication were reviewed.. Continue same treatment. Continue with symptomatic treatment. Resume home medication. Monitor labs and vitals. DVT and GI prophylaxis. Further recommendations as per clinical course of the patient DVT prophylaxis: no Subcutaneous heparin GI Prophylaxis: Pepcid Protonix PT/OT: Deferred Prognosis is guarded
[2022-11-12] MEDS: HEPARIN SODIUM,PORCINE 5,000 UNIT/ML 1 ML VIAL SQ SCH ×2 (08:25→20:53)
[2022-11-12] MEDS: ACETAMINOPHEN TAB 325 MG TAB PO PRN ×3 (08:30→20:51)
[2022-11-12] MEDS ORDERED: FAMOTIDINE 20 MG/2 ML VIAL IV SCH (09:00)
[2022-11-12] MEDS: DEXTROSE 5% IN WATER 1,000 ML with SODIUM BICARB (1 MEQ/ML) 150 ML IV SCH ×2 (10:20→23:39)
--- NOTE | 2022-11-12 11:49 | P.GSCN ---
History of Present Illness Consult date: 11/12/22 History of present illness: CHIEF COMPLAINT: Fever and weakness HISTORY OF PRESENT ILLNESS: This is a 76-year-old male with a history of metastatic prostate cancer with chronic indwelling Lawton catheter and last hormonal therapy treatment was this past Wednesday. Patient presented to the hospital with fevers and weakness. Patient with evidence of sepsis and UTI. Patient had a low hemoglobin that did drop from 7.9-6.2 on admission. He will be receiving 1 unit of blood. Patient denies any blood or black in his stools. Denies any nausea or vomiting. Denies any abdominal pain. Reports that he's never had EGD or colonoscopy. He reports that he is not on any blood thinners. He reports that he does have frequent bleeding from his Lawton catheter. He does have evidence of acute kidney injury and is being followed by nephrology. PAST MEDICAL HISTORY: back pain, prostate cancer, bone cancer, pancreatic cancer PAST SURGICAL HISTORY: Hernia Repair, Tonsillectomy MEDICATIONS: See below ALLERGIES: See below SOCIAL HISTORY: No illicit drug use. REVIEW OF SYSTEMS: CONSTITUTIONAL: Denies fever or chills. HEENT: Denies blurred vision, vision changes, or eye pain. Denies hemoptysis CARDIOVASCULAR: Denies chest pain or pressure. RESPIRATORY: No shortness of breath. GASTROINTESTINAL: See HPI for pertinent findings HEMATOLOGIC: Denies bleeding disorders. GENITOURINARY: Denies any blood in urine or increased urinary frequency. SKIN: Denies pruitis. Denies rash. PHYSICAL EXAM: VITAL SIGNS: Reviewed GENERAL: Well-developed in no acute distress. HEENT: No sclera icterus. Extraocular movements grossly intact. Moist buccal mucosa. Head is atraumatic, normocephalic. No nasal drainage. ABDOMEN: Soft. Nondistended. Nontender NEUROLOGIC: Alert and oriented. Cranial nerves II through XII grossly intact. LABORATORY DATA: WBC is 30.4 HB6.2 platelets 121, Hgb was 11.3 in 09/2020 Sodium 131 potassium 4.7 creatinine 4.60 Lactic acid 3.3-1.5 Urinalysis large amount of blood large leukocyte esterase Influenza, RSV, COVID-19 detected IMAGING: Chest x-ray posterior infiltrate. Correlate for atelectasis or pneumonia ASSESSMENT: 1. Anemia with no evidence of active bleeding 2. Sepsis with UTI 3. Metastatic prostate cancer PLAN: -Patient is tentatively scheduled for EGD and colonoscopy on 11/16/[address] De LaR osa -Agree with Blood transfusion -Continue regular diet -Continue to monitor hemoglobin -Continue to monitor for any signs or symptoms of bleeding Thank you for this consultation Physician Central Supply Clerk note has been reviewed by physician. Signing provider agrees with the documented findings, assessment, and plan of care. Past Medical History Past Medical History: No Reported History, Cancer Additional Past Medical History / Comment(s): back pain, prostate cancer, bone cancer, pancreatic cancer History of Any Multi-Drug Resistant Organisms: None Reported Past Surgical History: Hernia Repair, Tonsillectomy Additional Past Surgical History / Comment(s): fatty tumor removd right arm, oral surgery Past Anesthesia/Blood Transfusion Reactions: No Reported Reaction Past Psychological History: No Psychological Hx Reported Smoking Status: Never smoker Past Alcohol Use History: Daily Past Drug Use History: None Reported Medications and Allergies Home Medications Medication Instructions Recorded Confirmed Type Acetaminophen [Tylenol Arthritis] 1,300 mg PO Q6H PRN 11/11/22 11/11/22 History Enzalutamide [Xtandi] 160 mg PO DAILY 11/11/22 11/11/22 History Allergies Allergy/AdvReac Type Severity Reaction Status Date / Time Sulfa (Sulfonamide Allergy Hallucinati Verified 11/11/22 18:52 Antibiotics) ons Surgical - Exam Vital Signs Temp Pulse Resp BP Pulse Ox 103.1 F H 116 H 28 H 108/53 97 11/11/22 17:21 11/11/22 17:21 11/11/22 17:21 11/11/22 17:21 11/11/22 17:21 Results - Labs 11/12/22 04:42 11/12/22 04:42 Abnormal Lab Results - Last 24 Hours (Table) 11/11/22 11/11/22 11/11/22 Range/Units 17:49 17:49 17:49 WBC 22.9 H (3.8-10.6) k/uL RBC 2.66 L (4.30-5.90) m/uL Hgb 7.9 L (13.0-17.5) gm/dL Hct 24.2 L (39.0-53.0) % RDW (11.5-15.5) % Plt Count (150-450) k/uL Neutrophils # (Manual) 18.30 H (1.3-7.7) k/uL Lymphocytes # (Manual) 0.46 L (1.0-4.8) k/uL Monocytes # (Manual) 4.35 H (0-1.0) k/uL Sodium 131 L (137-145) mmol/L Chloride (98-107) mmol/L Carbon Dioxide 12 L (22-30) mmol/L BUN 75 H (9-20) mg/dL Creatinine 4.68 H (0.66-1.25) mg/dL Glucose (74-99) mg/dL Plasma Lactic Acid Matt 4.8 H* (0.7-2.0) mmol/L Calcium 7.8 L (8.4-10.2) mg/dL Albumin 3.3 L (3.5-5.0) g/dL Urine Protein (Negative) Urine Blood (Negative) Ur Leukocyte Esterase (Negative) Urine RBC (0-5) /hpf Urine WBC (0-5) /hpf Urine WBC Clumps (None) /hpf Urine Bacteria (None) /hpf Crossmatch 11/11/22 11/11/22 11/12/22 Range/Units 19:14 20:29 01:07 WBC (3.8-10.6) k/uL RBC (4.30-5.90) m/uL Hgb (13.0-17.5) gm/dL Hct (39.0-53.0) % RDW (11.5-15.5) % Plt Count (150-450) k/uL Neutrophils # (Manual) (1.3-7.7) k/uL Lymphocytes # (Manual) (1.0-4.8) k/uL Monocytes # (Manual) (0-1.0) k/uL Sodium (137-145) mmol/L Chloride (98-107) mmol/L Carbon Dioxide (22-30) mmol/L BUN (9-20) mg/dL Creatinine (0.66-1.25) mg/dL Glucose (74-99) mg/dL Plasma Lactic Acid Matt 3.3 H* 2.6 H* (0.7-2.0) mmol/L Calcium (8.4-10.2) mg/dL Albumin (3.5-5.0) g/dL Urine Protein 2+ H (Negative) Urine Blood Large H (Negative) Ur Leukocyte Esterase Large H (Negative) Urine RBC 158 H (0-5) /hpf Urine WBC >182 H (0-5) /hpf Urine WBC Clumps Many H (None) /hpf Urine Bacteria Many H (None) /hpf Crossmatch 11/12/22 11/12/22 11/12/22 Range/Units 04:42 04:42 06:20 WBC 30.4 H (3.8-10.6) k/uL RBC 2.14 L (4.30-5.90) m/uL Hgb 6.2 L* D (13.0-17.5) gm/dL Hct 19.7 L* (39.0-53.0) % RDW 15.6 H (11.5-15.5) % Plt Count 121 L (150-450) k/uL Neutrophils # (Manual) 23.40 H (1.3-7.7) k/uL Lymphocytes # (Manual) (1.0-4.8) k/uL Monocytes # (Manual) 3.95 H (0-1.0) k/uL Sodium 131 L (137-145) mmol/L Chloride 108 H (98-107) mmol/L Carbon Dioxide 11 L (22-30) mmol/L BUN 69 H (9-20) mg/dL Creatinine 4.60 H (0.66-1.25) mg/dL Glucose 102 H (74-99) mg/dL Plasma Lactic Acid Matt (0.7-2.0) mmol/L Calcium 6.9 L (8.4-10.2) mg/dL Albumin (3.5-5.0) g/dL Urine Protein (Negative) Urine Blood (Negative) Ur Leukocyte Esterase (Negative) Urine RBC (0-5) /hpf Urine WBC (0-5) /hpf Urine WBC Clumps (None) /hpf Urine Bacteria (None) /hpf Crossmatch See Detail Diabetes panel 11/11/22 11/12/22 Range/Units 17:49 04:42 Sodium 131 L 131 L (137-145) mmol/L Potassium 4.7 4.7 (3.5-5.1) mmol/L Chloride 103 108 H (98-107) mmol/L Carbon Dioxide 12 L 11 L (22-30) mmol/L BUN 75 H 69 H (9-20) mg/dL Creatinine 4.68 H 4.60 H (0.66-1.25) mg/dL Glucose 84 102 H (74-99) mg/dL Calcium 7.8 L 6.9 L (8.4-10.2) mg/dL AST 29 (17-59) U/L ALT 23 (4-49) U/L Alkaline Phosphatase 114 (38-126) U/L Total Protein 7.5 (6.3-8.2) g/dL Albumin 3.3 L (3.5-5.0) g/dL Calcium panel 11/11/22 11/12/22 Range/Units 17:49 04:42 Calcium 7.8 L 6.9 L (8.4-10.2) mg/dL Albumin 3.3 L (3.5-5.0) g/dL Pituitary panel 11/11/22 11/12/22 Range/Units 17:49 04:42 Sodium 131 L 131 L (137-145) mmol/L Potassium 4.7 4.7 (3.5-5.1) mmol/L Chloride 103 108 H (98-107) mmol/L Carbon Dioxide 12 L 11 L (22-30) mmol/L BUN 75 H 69 H (9-20) mg/dL Creatinine 4.68 H 4.60 H (0.66-1.25) mg/dL Glucose 84 102 H (74-99) mg/dL Calcium 7.8 L 6.9 L (8.4-10.2) mg/dL Adrenal panel 11/11/22 11/12/22 Range/Units 17:49 04:42 Sodium 131 L 131 L (137-145) mmol/L Potassium 4.7 4.7 (3.5-5.1) mmol/L Chloride 103 108 H (98-107) mmol/L Carbon Dioxide 12 L 11 L (22-30) mmol/L BUN 75 H 69 H (9-20) mg/dL Creatinine 4.68 H 4.60 H (0.66-1.25) mg/dL Glucose 84 102 H (74-99) mg/dL Calcium 7.8 L 6.9 L (8.4-10.2) mg/dL Total Bilirubin 0.9 (0.2-1.3) mg/dL AST 29 (17-59) U/L ALT 23 (4-49) U/L Alkaline Phosphatase 114 (38-126) U/L Total Protein 7.5 (6.3-8.2) g/dL Albumin 3.3 L (3.5-5.0) g/dL
--- NOTE | 2022-11-12 12:22 | P.NPCON ---
History of Present Illness - Reason for Consult acute renal failure - History of Present Illness Patient is a 76-year-old male with history of prostate cancer and urine retention status post Law[place] catheter placement for the past few months. Patient follows with Dr. Pineda as outpatient. Patient is admitted to the hospital with complaints of increased weakness and difficulty to ambulate. He has had decreased oral intake No significant diarrhea or vomiting. Patient states he has had decent amount of urine in his catheter. Lawton catheter was changed in the ER as there was high suspicion for infection. Patient denies any previous history of kidney diseases. Serum creatinine was 4.6 today and it was 4.6 yesterday. Previous creatinine at 3.2 on 10/26/2022 and 0.9 on 10/01/2020. Hemoglobin was low at 6.2 and systolic blood pressure has been low in the 70s. Significant acidosis noted with CO2 at 11 on labs today. Patient states he had bleeding in the Lawton catheter and does not report any other source of bleeding. Urine currently appears yellow in the bag. Review of Systems As per HPI Past Medical History Past Medical History: No Reported History, Cancer Additional Past Medical History / Comment(s): back pain, prostate cancer, bone cancer, pancreatic cancer History of Any Multi-Drug Resistant Organisms: None Reported Past Surgical History: Hernia Repair, Tonsillectomy Additional Past Surgical History / Comment(s): fatty tumor removd right arm, oral surgery Past Anesthesia/Blood Transfusion Reactions: No Reported Reaction Past Psychological History: No Psychological Hx Reported Smoking Status: Never smoker Past Alcohol Use History: Daily Past Drug Use History: None Reported Medications and Allergies Home Medications Medication Instructions Recorded Confirmed Type Acetaminophen [Tylenol Arthritis] 1,300 mg PO Q6H PRN 11/11/22 11/11/22 History Enzalutamide [Xtandi] 160 mg PO DAILY 11/11/22 11/11/22 History Allergies Allergy/AdvReac Type Severity Reaction Status Date / Time Sulfa (Sulfonamide Allergy Hallucinati Verified 11/11/22 18:52 Antibiotics) ons Physical Exam Vitals: Vital Signs Temp Pulse Resp BP Pulse Ox 11/12/22 11:26 97.7 F 74 18 82/48 99 11/12/22 11:06 97.8 F 76 17 71/50 100 11/12/22 10:50 97.6 F 80 16 92/53 97 11/12/22 08:30 98.3 F 79 17 88/54 100 11/12/22 06:00 76 18 94/54 11/12/22 01:59 89 103/63 11/12/22 00:30 89 20 108/49 95 11/12/22 00:20 91 14 79/44 95 11/12/22 00:12 97.2 F L 87 14 93/57 98 11/11/22 23:31 98.2 F 11/11/22 22:19 66 24 98/60 98 11/11/22 21:15 97/53 11/11/22 21:12 96 12 89/52 97 11/11/22 20:41 95 30 H 88/47 99 11/11/22 19:55 99 31 H 94/42 98 11/11/22 18:51 98.5 F 99 26 H 101/50 92 L 11/11/22 17:30 24 11/11/22 17:27 122 H 28 H 107/59 99 11/11/22 17:21 103.1 F H 116 H 28 H 108/53 97 Intake and Output 11/11/22 11/12/22 11/12/22 22:59 06:59 14:59 Intake Total 0 Output Total 20 300 Balance -20 -300 Intake: Blood Product 0 Rc As-1 Unit 0 [id number] Output: Urine 20 300 Uretheral (Law[place]) 20 300 Other: Weight 90.718 kg Patient is awake, comfortable, no acute distress He is weak Examination of the heart S1 and S2 Examination of the lungs bilateral breath sounds are heard Abdomen is soft nontender Examination lower extremity shows edema 1+ bilaterally with chronic skin changes [employer] exam grossly intact Results - Lab Results Most recent lab results Calcium 6.9 mg/dL (8.4-10.2) L 11/12/22 04:42 11/12/22 04:42 11/12/22 04:42 Assessment and Plan Assessment: 1. Acute kidney injury, ATN currently nonoliguric. Patient has an indwelling Lawton catheter for urine retention for the past few months. Etiology of ATN is hypotension, sepsis and severe anemia. UA shows RBCs 158 WBCs more than 180-2+ protein and large blood. Check ultrasound of the kidneys 2. History of prostate cancer currently with indwelling Law[place] catheter, being followed by Dr. Pineda from urology 3. Severe non-gap metabolic acidosis secondary to acute kidney injury along with lactic acidosis from hypotension 4. Anemia rule out GI bleed 5. Lactic acidosis 6. UTI indwelling Lawton catheter. Urine culture is pending 7. Encephalopathy mostly metabolic 8. Chronic back pain associated with metastatic disease. Plan: Add IV bicarb Agree with packed RBCs transfusion Check ultrasound of the kidneys Repeat labs in a.m. Continue with empiric antibiotics Avoid nephrotoxic agents. Thank you for the consultation. We will continue to follow the patient with you during his hospitalization
[2022-11-12] MEDS: PIPERACILLIN-TAZOBACTAM 3.375 GM in SODIUM CHLORIDE 0.9% 100 ML IVPB SCH ×2 (13:51→20:52)
--- NOTE | 2022-11-12 14:50 | US ---
EXAMINATION TYPE: US kidneys/renal and bladder DATE OF EXAM: 11/12/2022 COMPARISON: CT abdomen pelvis 10/26/2022 CLINICAL INDICATION: Male, 76 years old with history of ervin; Dehydration. Abnormal labs. UTI. Bladd er ugarte. Hx prostate cancer. EXAM MEASUREMENTS: Right Kidney: 15.1 x 7.7 x 6.8 cm Left Kidney: 16.1 x 6.5 x 6.7 cm Right Kidney: Enlarged in size. Hydronephrosis with internal echoes seen within. Echogenic focus wi th shadow lateral lower pole = 0.7 cm. Left Kidney: Enlarged in size. Hydronephrosis. Cortical lobularity. Multiple tiny echogenic foci. Multiple hypoechoic areas with largest lower medial pole = 2.1 x 1.6 x 1.8 cm. Possible complex le delilah vs cortical lobularity= 4.9 x 4.4 x 4.6 cm Bladder: Ugarte seen. Wall thickening = 8.3 mm Bilateral Jets seen not visualized due to ugarte Both kidneys are enlarged. Mild right hydronephrosis with internal echoes identified. Nonobstructive shadowing focus measuring up to 0.7 cm. Mild left hydronephrosis with multiple tiny echogenic nonshad owing foci. Complex region within the left lateral kidney measuring up to 4.9 cm. Multiple cysts iden tified within the left kidney. The urinary bladder is underdistended with Ugarte catheter in place. Wall thickened measuring up to 8 mm. IMPRESSION: 1. Bilateral hydronephrosis with nonspecific debris demonstrated within the right collecting system. Etiologies include blood products versus proteinaceous debris versus infectious debris versus other. Correlate with urinalysis. 2. Nonobstructive bilateral renal calculi. 3. Complex possible lesion within the left kidney measuring up to 4.9 cm versus heterogenous parench yma. Further evaluation with CT renal mass protocol is recommended. 4. Decompressed urinary bladder with Ugarte catheter in place. There is wall thickening which may be related to underdistention versus infectious process. Correlate with urinalysis for cystitis.
[2022-11-12] MEDS ORDERED: VANCOMYCIN 1,500 MG in SODIUM CHLORIDE 0.9% 500 ML 500 ML IVPB ONE (16:00)
[2022-11-12] MEDS ORDERED: KETOROLAC 15 MG/ML 1 ML VIAL IVP PRN (20:41)
[2022-11-12] MEDS ORDERED: CEFEPIME 1 GM in SODIUM CHLORIDE 0.9% 50 ML IVPB SCH (21:00)
--- NOTE | 2022-11-12 22:26 | P.CONS ---
History of Present Illness - Reason for Consult Consult date: 11/12/22 Sepsis Requesting physician: Rafael Lorenzo - Chief Complaint Weakness and fever x few days - History of Present Illness Patient is a 76-year-old male with a past medical history Nupercaine for prostate cancer patient did have a urine retention requiring chronic indwelling Lawton catheter change about every 4 weeks patient presented to hospital last evening for evaluation of fever and weakness apparently the patient mention has been not feeling well over the last few days with complaining of weakness no energy started running a fever last night. Denies jacobs ving any headache or URI symptoms no chest pain or shortness of the cough no nausea vomiting no abdominal pain diarrhea patient mention he did have significant cloudy urine but no hematuria flank pain patient on presentation to the hospital did have a fever of 103 F patient was tachycardic with a heart rate 122 mildly hypotensive but not hypoxic patient did have a white count of 30,000 also noticed to have drop in hemoglobin to 6.2 did have elevated. Creatinine elevated Syms are normal urine was positive with large leukocyte esterase more than 20 WBC patient recent blood culture positive for E. coli with intermediate sensitive to Unasyn along with Enterococcus faecalis patient is currently on vancomycin and cefepime infectious disease was consulted for further management of antibiotic therapy Review of Systems Positive point and negatives has been mentioned in the HPI, complete review of systems was performed and all other systems are negative Past Medical History Past Medical History: No Reported History, Cancer Additional Past Medical History / Comment(s): back pain, prostate cancer, bone cancer, pancreatic cancer History of Any Multi-Drug Resistant Organisms: None Reported Past Surgical History: Hernia Repair, Tonsillectomy Additional Past Surgical History / Comment(s): fatty tumor removd right arm, oral surgery Past Anesthesia/Blood Transfusion Reactions: No Reported Reaction Past Psychological History: No Psychological Hx Reported Smoking Status: Never smoker Past Alcohol Use History: Daily Past Drug Use History: None Reported Medications and Allergies Home Medications Medication Instructions Recorded Confirmed Type Acetaminophen [Tylenol Arthritis] 1,300 mg PO Q6H PRN 11/11/22 11/11/22 History Enzalutamide [Xtandi] 160 mg PO DAILY 11/11/22 11/11/22 History Allergies Allergy/AdvReac Type Severity Reaction Status Date / Time Sulfa (Sulfonamide Allergy Hallucinati Verified 11/11/22 18:52 Antibiotics) ons Physical Exam Vitals: Vital Signs Temp Pulse Resp BP Pulse Ox 11/12/22 12:45 97.8 F 76 16 90/56 99 11/12/22 11:26 97.7 F 74 18 82/48 99 11/12/22 11:06 97.8 F 76 17 71/50 100 11/12/22 10:50 97.6 F 80 16 92/53 97 11/12/22 08:30 98.3 F 79 17 88/54 100 11/12/22 06:00 76 18 94/54 11/12/22 01:59 89 103/63 11/12/22 00:30 89 20 108/49 95 11/12/22 00:20 91 14 79/44 95 11/12/22 00:12 97.2 F L 87 14 93/57 98 11/11/22 23:31 98.2 F 11/11/22 22:19 66 24 98/60 98 11/11/22 21:15 97/53 11/11/22 21:12 96 12 89/52 97 11/11/22 20:41 95 30 H 88/47 99 11/11/22 19:55 99 31 H 94/42 98 11/11/22 18:51 98.5 F 99 26 H 101/50 92 L 11/11/22 17:30 24 11/11/22 17:27 122 H 28 H 107/59 99 11/11/22 17:21 103.1 F H 116 H 28 H 108/53 97 Intake and Output 11/11/22 11/12/22 11/12/22 22:59 06:59 14:59 Intake Total 0 Output Total 20 300 Balance -20 -300 Intake: Blood Product 0 Rc As-1 Unit 0 [id number] Output: Urine 20 300 Uretheral (Law[place]) 20 300 Other: Weight 90.718 kg GENERAL DESCRIPTION: Elderly male up in bed, no distress. No tachypnea or accessory muscle of respiration use. HEENT: Shows Pallor , no scleral icterus. Oral mucous membrane is dry. NECK: Trachea central, no thyromegaly. LUNGS: Unlabored breathing. Clear to auscultation anteriorly. No wheeze or crackle. HEART: S1, S2, regular rate and rhythm. No loud murmur ABDOMEN: Soft, no tenderness , EXTREMITIES: No edema of feet. SKIN: No rash, no masses palpable. NEUROLOGICAL: The patient is awake, alert, oriented x3, mood and affect normal. Results CBC & Chem 7: 11/12/22 04:42 11/12/22 04:42 Labs: Abnormal Lab Results - Last 24 Hours (Table) 11/11/22 11/11/22 11/11/22 Range/Units 17:49 17:49 17:49 WBC 22.9 H (3.8-10.6) k/uL RBC 2.66 L (4.30-5.90) m/uL Hgb 7.9 L (13.0-17.5) gm/dL Hct 24.2 L (39.0-53.0) % RDW (11.5-15.5) % Plt Count (150-450) k/uL Neutrophils # (Manual) 18.30 H (1.3-7.7) k/uL Lymphocytes # (Manual) 0.46 L (1.0-4.8) k/uL Monocytes # (Manual) 4.35 H (0-1.0) k/uL Sodium 131 L (137-145) mmol/L Chloride (98-107) mmol/L Carbon Dioxide 12 L (22-30) mmol/L BUN 75 H (9-20) mg/dL Creatinine 4.68 H (0.66-1.25) mg/dL Glucose (74-99) mg/dL Plasma Lactic Acid Matt 4.8 H* (0.7-2.0) mmol/L Calcium 7.8 L (8.4-10.2) mg/dL Albumin 3.3 L (3.5-5.0) g/dL Urine Protein (Negative) Urine Blood (Negative) Ur Leukocyte Esterase (Negative) Urine RBC (0-5) /hpf Urine WBC (0-5) /hpf Urine WBC Clumps (None) /hpf Urine Bacteria (None) /hpf Crossmatch 11/11/22 11/11/22 11/12/22 Range/Units 19:14 20:29 01:07 WBC (3.8-10.6) k/uL RBC (4.30-5.90) m/uL Hgb (13.0-17.5) gm/dL Hct (39.0-53.0) % RDW (11.5-15.5) % Plt Count (150-450) k/uL Neutrophils # (Manual) (1.3-7.7) k/uL Lymphocytes # (Manual) (1.0-4.8) k/uL Monocytes # (Manual) (0-1.0) k/uL Sodium (137-145) mmol/L Chloride (98-107) mmol/L Carbon Dioxide (22-30) mmol/L BUN (9-20) mg/dL Creatinine (0.66-1.25) mg/dL Glucose (74-99) mg/dL Plasma Lactic Acid Matt 3.3 H* 2.6 H* (0.7-2.0) mmol/L Calcium (8.4-10.2) mg/dL Albumin (3.5-5.0) g/dL Urine Protein 2+ H (Negative) Urine Blood Large H (Negative) Ur Leukocyte Esterase Large H (Negative) Urine RBC 158 H (0-5) /hpf Urine WBC >182 H (0-5) /hpf Urine WBC Clumps Many H (None) /hpf Urine Bacteria Many H (None) /hpf Crossmatch 11/12/22 11/12/22 11/12/22 Range/Units 04:42 04:42 06:20 WBC 30.4 H (3.8-10.6) k/uL RBC 2.14 L (4.30-5.90) m/uL Hgb 6.2 L* D (13.0-17.5) gm/dL Hct 19.7 L* (39.0-53.0) % RDW 15.6 H (11.5-15.5) % Plt Count 121 L (150-450) k/uL Neutrophils # (Manual) 23.40 H (1.3-7.7) k/uL Lymphocytes # (Manual) (1.0-4.8) k/uL Monocytes # (Manual) 3.95 H (0-1.0) k/uL Sodium 131 L (137-145) mmol/L Chloride 108 H (98-107) mmol/L Carbon Dioxide 11 L (22-30) mmol/L BUN 69 H (9-20) mg/dL Creatinine 4.60 H (0.66-1.25) mg/dL Glucose 102 H (74-99) mg/dL Plasma Lactic Acid Matt (0.7-2.0) mmol/L Calcium 6.9 L (8.4-10.2) mg/dL Albumin (3.5-5.0) g/dL Urine Protein (Negative) Urine Blood (Negative) Ur Leukocyte Esterase (Negative) Urine RBC (0-5) /hpf Urine WBC (0-5) /hpf Urine WBC Clumps (None) /hpf Urine Bacteria (None) /hpf Crossmatch See Detail Assessment and Plan (1) Sepsis Current Visit: Yes Status: Acute Code(s): A41.9 - SEPSIS, UNSPECIFIED ORGANISM SNOMED Code(s): 11623888 (2) UTI (urinary tract infection) Current Visit: Yes Status: Acute Code(s): N39.0 - URINARY TRACT INFECTION, SITE NOT SPECIFIED SNOMED Code(s): 42389372 Plan: 1patient presented to hospital with sepsis in this patient with the fever tachycardia elevated white count and hypotension sources complicated/catheter assisted urinary tract infection in this patient with a recent urine culture positive for Enterococcus and E. coli could be the same pathogen. 2patient with renal insufficiency and high risk of nephrotoxicity from vancomycin. 3we will discontinue cefepime and vancomycin. 4we will start patient on Zosyn to cover for the recently grown pathogen of E. coli and Enterococcus while waiting for the culture to finalize this admission. 5ultrasound of the kidney bladder because of elevated creatinine to make sure evidence of any obstructive uropathy or abscess. We will follow on clinical condition and cultures to further adjust medication if needed Thank you for this consultation we will follow the patient along with you Dictation was produced using [employer] dictation software. please excuse any grammatical, word or spelling errors. Time with Patient: Greater than 30
[2022-11-13] MEDS ORDERED: KETOROLAC 15 MG/ML 1 ML VIAL IVP SCH
[2022-11-13] MEDS ORDERED: SODIUM CHLORIDE 0.9% 500 ML 500 ML IV ONE (00:05)
[2022-11-13 00:08] LABS: Glucose,Whole Blood 102 mg/dL (70-110)
[2022-11-13] MEDS: NOREPINEPHRINE 4 MG in SODIUM CHLORIDE 0.9% 250 ML IV SCH ×3 (00:27→22:59)
[2022-11-13 00:36] LABS: HCT 26.6 % (39.0-53.0); Hypochromasia Marked; MCH 28.8 pg (25.0-35.0); MCHC 30.7 g/dL (31.0-37.0); MCV 93.7 fL (80.0-100.0); Mean Platelet Volume 15.8; Platelet Count 122 k/uL (150-450); RBC 2.84 m/uL (4.30-5.90); RDW 15.4 % (11.5-15.5); WBC 30.9 k/uL (3.8-10.6)
[2022-11-13 00:49] LABS: ALT 19 U/L (4-49); AST 27 U/L (17-59); African American GFR (CKD) 11 (>60 ml/min/1.73 sqM); Albumin 2.6 g/dL (3.5-5.0); Alkaline Phosphatase 127 U/L (38-126); Anion Gap 17 mmol/L; Blood Urea Nitrogen 71 mg/dL (9-20); Calcium 7.5 mg/dL (8.4-10.2); Chloride 110 mmol/L (98-107); Glucose 90 mg/dL (74-99); Magnesium 1.3 mg/dL (1.6-2.3); Non-African American GFR(CKD) 10 (>60 ml/min/1.73 sqM); Potassium 4.5 mmol/L (3.5-5.1); Sodium 134 mmol/L (137-145); Total Bilirubin 0.9 mg/dL (0.2-1.3); Total Protein 6.6 g/dL (6.3-8.2)
[2022-11-13 00:53] LABS: HGB 8.2 gm/dL (13.0-17.5)
[2022-11-13 00:53] LABS: Carbon Dioxide 7 mmol/L (22-30)
[2022-11-13 01:18] LABS: African American GFR (CKD) 11 (>60 ml/min/1.73 sqM); Non-African American GFR(CKD) 10 (>60 ml/min/1.73 sqM)
[2022-11-13 01:23] LABS: Vancomycin,Random 17.8 ug/mL
[2022-11-13] MEDS ORDERED: CALCIUM GLUCONATE IN NACL 2 GM in SALINE 1 100ML.BAG IVPB ONE (01:30)
[2022-11-13] MEDS: MAGNESIUM SULFATE-D5W PMX 1 GM in DEXTROSE/WATER 1 100ML.BAG IVPB SCH ×2 (01:40→02:50)
[2022-11-13] MEDS: DEXTROSE 5% IN WATER 1,000 ML with SODIUM BICARB (1 MEQ/ML) 150 ML IV SCH ×3 (02:10→20:19)
[2022-11-13 06:40] LABS: HGB 7.2 gm/dL (13.0-17.5); Hypochromasia Marked; MCH 29.6 pg (25.0-35.0); MCHC 31.4 g/dL (31.0-37.0); MCV 94.4 fL (80.0-100.0); Mean Platelet Volume 15.9; Platelet Count 94 k/uL (150-450); RBC 2.44 m/uL (4.30-5.90); RDW 15.5 % (11.5-15.5)
[2022-11-13 07:23] LABS: Lymphocytes # (M) 2.24 k/uL (1.0-4.8); Monocytes # (M) 6.08 k/uL (0-1.0); Neutrophils # (M) 23.68 k/uL (1.3-7.7); Neutrophils % (M) 74 %; Nucleated Red Blood Cells 0 /100 WBC (0-0); Total Cells Counted 100
[2022-11-13 07:24] LABS: Crenated RBC Present
[2022-11-13 07:27] LABS: Large Platelets Present; Polychromasia Present
[2022-11-13 07:59] LABS: ALT 17 U/L (4-49); AST 23 U/L (17-59); African American GFR (CKD) 11 (>60 ml/min/1.73 sqM); Albumin 2.6 g/dL (3.5-5.0); Alkaline Phosphatase 107 U/L (38-126); Anion Gap 14 mmol/L; Blood Urea Nitrogen 69 mg/dL (9-20); Calcium 7.4 mg/dL (8.4-10.2); Carbon Dioxide 12 mmol/L (22-30); Chloride 107 mmol/L (98-107); Glucose 118 mg/dL (74-99); Magnesium 1.7 mg/dL (1.6-2.3); Non-African American GFR(CKD) 10 (>60 ml/min/1.73 sqM); Potassium 4.9 mmol/L (3.5-5.1); Sodium 133 mmol/L (137-145); Total Bilirubin 0.8 mg/dL (0.2-1.3); Total Protein 6.4 g/dL (6.3-8.2)
--- NOTE | 2022-11-13 08:04 | XR ---
EXAMINATION TYPE: XR chest 1V DATE OF EXAM: 11/13/2022 HISTORY: Shortness of breath. COMPARISON: 11/11/2022 TECHNIQUE: Single view of the chest is submitted. FINDINGS: Demonstrated are scattered senescent parenchymal change. Increased density left upper lobe could be a result of patient rotation. Developing infiltrate is not excluded. There is also nodular density noted. Follow-up advised. The heart is stable. Hilar and mediastinal structures are within normal limits. Degenerative changes are seen of the dorsal spine. IMPRESSION: 1. Increased density left upper lobe could be a result of patient rotation. Developing infiltrate is not excluded. There is also nodular density noted. Follow-up advised.
[2022-11-13] MEDS: PIPERACILLIN-TAZOBACTAM 3.375 GM in SODIUM CHLORIDE 0.9% 100 ML IVPB SCH ×2 (10:11→21:49)
[2022-11-13] MEDS: HEPARIN SODIUM,PORCINE 5,000 UNIT/ML 1 ML VIAL SQ SCH ×2 (10:11→21:49)
[2022-11-13] MEDS: PANTOPRAZOLE 40 MG/10 ML VIAL IVP SCH (10:11)
--- NOTE | 2022-11-13 10:42 | P.PN ---
Subjective Patient is seen for follow-up for acute kidney injury. Patient was transferred to the ICU yesterday due to significant hypotension. The bicarb drip was apparently not running as the IV was likely infiltrated. New IV has been placed and acidosis has improved. Urine output has also improved for the last hour or so. Overall patient states he is feeling better. Objective - Vital Signs Vital signs: Vital Signs Temp 97.9 F 11/13/22 08:00 Pulse 74 11/13/22 10:00 Resp 29 H 11/13/22 10:00 BP 102/53 11/13/22 10:00 Pulse Ox 92 L 11/13/22 10:00 FiO2 Intake & Output 11/12/22 11/13/22 11/13/22 18:59 06:59 18:59 Intake Total 310 1214.695 375 Output Total 450 0 110 Balance -140 1214.695 265 Weight 90.718 kg Intake: IV 1075 375 Calcium Gluconate in NaCl 100 2 gm In Saline 1 100ml. bag @ 100 mls/hr IVPB ONCE ONE Rx#:[id number] Dextrose 5% in Water 1, 875 375 000 ml @ 125 mls/hr IV . Q9H12M YOVANI with Sodium Bicarb (1 Meq/ml) 150 ml Rx#:[id number] Magnesium Sulfate-D5w Pmx 100 1 gm In Dextrose/Water 1 100ml.bag @ 100 mls/hr IVPB Q1H YOVANI Rx#: [id number] Intake, IV Titration 139.695 Amount Norepinephrine 4 mg In 139.695 Sodium Chloride 0.9% 250 ml @ 0.03 MCG/KG/MIN 10. 369 mls/hr IV .Q24H YOVANI Rx#:[id number] Blood Product 310 Rc As-1 Unit 310 [id number] Output: Urine 450 0 110 Uretheral ([place]) 450 Other: Voiding Method Indwelling Catheter - Exam Patient is awake, comfortable, no acute distress He is weak Examination of the heart S1 and S2 Examination of the lungs bilateral breath sounds are heard Abdomen is soft nontender Examination lower extremity shows edema 1+ bilaterally with chronic skin changes BUSINESS ASSISTANT exam grossly intact - Labs CBC & Chem 7: 11/13/22 03:50 11/13/22 07:33 Labs: Abnormal Lab Results - Last 24 Hours (Table) 11/12/22 11/12/22 11/13/22 Range/Units 06:20 23:42 00:25 WBC 30.9 H (3.8-10.6) k/uL RBC 2.84 L (4.30-5.90) m/uL Hgb 8.2 L D (13.0-17.5) gm/dL Hct 26.6 L (39.0-53.0) % MCHC 30.7 L (31.0-37.0) g/dL Plt Count 122 L (150-450) k/uL Neutrophils # (Manual) (1.3-7.7) k/uL Monocytes # (Manual) (0-1.0) k/uL Sodium (137-145) mmol/L Chloride (98-107) mmol/L Carbon Dioxide (22-30) mmol/L BUN (9-20) mg/dL Creatinine 5.21 H (0.66-1.25) mg/dL Glucose (74-99) mg/dL Plasma Lactic Acid Matt (0.7-2.0) mmol/L Calcium (8.4-10.2) mg/dL Ionized Calcium Ky (4.5-5.3) mg/dL Magnesium (1.6-2.3) mg/dL Alkaline Phosphatase (38-126) U/L Albumin (3.5-5.0) g/dL Crossmatch See Detail 11/13/22 11/13/22 11/13/22 Range/Units 00:25 00:25 00:25 WBC (3.8-10.6) k/uL RBC (4.30-5.90) m/uL Hgb (13.0-17.5) gm/dL Hct (39.0-53.0) % MCHC (31.0-37.0) g/dL Plt Count (150-450) k/uL Neutrophils # (Manual) (1.3-7.7) k/uL Monocytes # (Manual) (0-1.0) k/uL Sodium 134 L (137-145) mmol/L Chloride 110 H (98-107) mmol/L Carbon Dioxide 7 L* (22-30) mmol/L BUN 71 H (9-20) mg/dL Creatinine 5.25 H (0.66-1.25) mg/dL Glucose (74-99) mg/dL Plasma Lactic Acid Matt 5.2 H* (0.7-2.0) mmol/L Calcium 7.5 L (8.4-10.2) mg/dL Ionized Calcium Ky 4.3 L (4.5-5.3) mg/dL Magnesium 1.3 L (1.6-2.3) mg/dL Alkaline Phosphatase 127 H (38-126) U/L Albumin 2.6 L (3.5-5.0) g/dL Crossmatch 11/13/22 11/13/22 11/13/22 Range/Units 03:50 03:50 07:33 WBC 32.0 H (3.8-10.6) k/uL RBC 2.44 L (4.30-5.90) m/uL Hgb 7.2 L (13.0-17.5) gm/dL Hct 23.0 L (39.0-53.0) % MCHC (31.0-37.0) g/dL Plt Count 94 L (150-450) k/uL Neutrophils # (Manual) 23.68 H (1.3-7.7) k/uL Monocytes # (Manual) 6.08 H (0-1.0) k/uL Sodium 133 L (137-145) mmol/L Chloride (98-107) mmol/L Carbon Dioxide 12 L (22-30) mmol/L BUN 69 H (9-20) mg/dL Creatinine 5.17 H (0.66-1.25) mg/dL Glucose 118 H (74-99) mg/dL Plasma Lactic Acid Matt 2.7 H* (0.7-2.0) mmol/L Calcium 7.4 L (8.4-10.2) mg/dL Ionized Calcium Ky (4.5-5.3) mg/dL Magnesium (1.6-2.3) mg/dL Alkaline Phosphatase (38-126) U/L Albumin 2.6 L (3.5-5.0) g/dL Crossmatch Microbiology - Last 24 Hours (Table) 11/11/22 19:14 Urine Culture - Preliminary Urine,Voided Gram Neg Bacilli 11/11/22 17:45 Blood Culture Gram Stain - Preliminary Blood Blood Culture - Preliminary Gram Neg Bacilli 11/11/22 17:30 Blood Culture - Preliminary Blood Assessment and Plan Assessment: 1. Acute kidney injury, ATN currently nonoliguric. Ultrasound shows bilateral hydronephrosis and urology has been consulted. Patient has an indwelling Law[place] catheter for urine retention for the past few months. Etiology of ATN is hypotension, sepsis and severe anemia. UA shows RBCs 158 WBCs more than 180-2+ protein and large blood. 2. History of prostate cancer currently with indwelling Law[place] catheter, being followed by Dr. Pineda from urology 3. Severe non-gap metabolic acidosis secondary to acute kidney injury along with lactic acidosis from hypotension 4. Anemia rule out GI bleed 5. Lactic acidosis 6. UTI indwelling Law[place] catheter. Urine culture is pending 7. Encephalopathy mostly metabolic 8. Chronic back pain associated with metastatic disease. Plan: Continue with bicarb drip DC Toradol Await urology input Repeat labs in a.m. No indication for renal replacement therapy today but we will continue to monitor on a daily basis.
--- NOTE | 2022-11-13 10:58 | P.PN ---
Subjective Progress Note Date: 11/13/22 CHIEF COMPLAINT: Fever and weakness HISTORY OF PRESENT ILLNESS: Patient currently in the ICU due to hypotension. Patient has positive blood cultures E. coli. He is currently diagnosed with UTI with sepsis. Surgical service is following in regards to patient's anemia. Hemoglobin 6.2 up to 8.2 yesterday. Today's hemoglobin 7.2. Patient status post 1 unit of blood yesterday. Patient denies any active bleeding. Patient has known history of metastatic prostate cancer with chronic indwelling Law[place] catheter. Afebrile. BP 102/53. WBC is 32 Hgb 7.2 platelets 94 ultrasound kidney renal and bladder reports bilateral hydronephrosis. Nonobstructive bilateral renal calculi. Complex possible lesion within the left kidney Patient seen and examined with Dr. De La Rosa PHYSICAL EXAM: VITAL SIGNS: Reviewed. GENERAL: Well-developed in no acute distress. HEENT: No sclera icterus. Extraocular movements grossly intact. Moist buccal mucosa. Head is atraumatic, normocephalic. ABDOMEN: Soft. Nondistended. Nontender. NEUROLOGIC: Alert and oriented. Cranial nerves II through XII grossly intact. ASSESSMENT: 1. Anemia with no evidence of active bleeding 2. Sepsis with UTI and bacteremia 3. Metastatic prostate cancer PLAN: -Patient tentatively scheduled for EGD and colonoscopy on 11/16/[address] De La Rosa for further evaluation of the anemia. Patient is currently declining endoscopies. -Continue to monitor hemoglobin -Continue to monitor for any signs or symptoms of bleeding -Continue supportive care Physician Work And Family Life Consultant note has been reviewed by physician. Signing provider agrees with the documented findings, assessment, and plan of care. Objective - Vital Signs Vital signs: Vital Signs Temp 98.1 F 11/13/22 04:00 Pulse 81 11/13/22 07:00 Resp 29 H 11/13/22 07:00 BP 108/55 11/13/22 07:00 Pulse Ox 98 11/13/22 07:00 FiO2 Intake & Output 11/12/22 11/13/22 11/13/22 18:59 06:59 18:59 Intake Total 310 1214.695 Output Total 450 0 Balance -140 1214.695 Weight 90.718 kg Intake: IV 1075 Calcium Gluconate in NaCl 100 2 gm In Saline 1 100ml. bag @ 100 mls/hr IVPB ONCE ONE Rx#:[id number] Dextrose 5% in Water 1, 875 000 ml @ 125 mls/hr IV . Q9H12M YOVANI with Sodium Bicarb (1 Meq/ml) 150 ml Rx#:[id number] Magnesium Sulfate-D5w Pmx 100 1 gm In Dextrose/Water 1 100ml.bag @ 100 mls/hr IVPB Q1H YOVANI Rx#: [id number] Intake, IV Titration 139.695 Amount Norepinephrine 4 mg In 139.695 Sodium Chloride 0.9% 250 ml @ 0.03 MCG/KG/MIN 10. 369 mls/hr IV .Q24H YOVANI Rx#:[id number] Blood Product 310 Rc As-1 Unit 310 [id number] Output: Urine 450 0 Uretheral ([place]) 450 Other: Voiding Method Indwelling Catheter - Labs CBC & Chem 7: 11/13/22 03:50 11/13/22 07:33 Labs: Abnormal Lab Results - Last 24 Hours (Table) 11/12/22 11/12/22 11/13/22 Range/Units 06:20 23:42 00:25 WBC 30.9 H (3.8-10.6) k/uL RBC 2.84 L (4.30-5.90) m/uL Hgb 8.2 L D (13.0-17.5) gm/dL Hct 26.6 L (39.0-53.0) % MCHC 30.7 L (31.0-37.0) g/dL Plt Count 122 L (150-450) k/uL Neutrophils # (Manual) (1.3-7.7) k/uL Monocytes # (Manual) (0-1.0) k/uL Sodium (137-145) mmol/L Chloride (98-107) mmol/L Carbon Dioxide (22-30) mmol/L BUN (9-20) mg/dL Creatinine 5.21 H (0.66-1.25) mg/dL Plasma Lactic Acid Matt (0.7-2.0) mmol/L Calcium (8.4-10.2) mg/dL Ionized Calcium Ky (4.5-5.3) mg/dL Magnesium (1.6-2.3) mg/dL Alkaline Phosphatase (38-126) U/L Albumin (3.5-5.0) g/dL Crossmatch See Detail 11/13/22 11/13/22 11/13/22 Range/Units 00:25 00:25 00:25 WBC (3.8-10.6) k/uL RBC (4.30-5.90) m/uL Hgb (13.0-17.5) gm/dL Hct (39.0-53.0) % MCHC (31.0-37.0) g/dL Plt Count (150-450) k/uL Neutrophils # (Manual) (1.3-7.7) k/uL Monocytes # (Manual) (0-1.0) k/uL Sodium 134 L (137-145) mmol/L Chloride 110 H (98-107) mmol/L Carbon Dioxide 7 L* (22-30) mmol/L BUN 71 H (9-20) mg/dL Creatinine 5.25 H (0.66-1.25) mg/dL Plasma Lactic Acid Matt 5.2 H* (0.7-2.0) mmol/L Calcium 7.5 L (8.4-10.2) mg/dL Ionized Calcium Ky 4.3 L (4.5-5.3) mg/dL Magnesium 1.3 L (1.6-2.3) mg/dL Alkaline Phosphatase 127 H (38-126) U/L Albumin 2.6 L (3.5-5.0) g/dL Crossmatch 11/13/22 11/13/22 Range/Units 03:50 03:50 WBC 32.0 H (3.8-10.6) k/uL RBC 2.44 L (4.30-5.90) m/uL Hgb 7.2 L (13.0-17.5) gm/dL Hct 23.0 L (39.0-53.0) % MCHC (31.0-37.0) g/dL Plt Count 94 L (150-450) k/uL Neutrophils # (Manual) 23.68 H (1.3-7.7) k/uL Monocytes # (Manual) 6.08 H (0-1.0) k/uL Sodium (137-145) mmol/L Chloride (98-107) mmol/L Carbon Dioxide (22-30) mmol/L BUN (9-20) mg/dL Creatinine (0.66-1.25) mg/dL Plasma Lactic Acid Matt 2.7 H* (0.7-2.0) mmol/L Calcium (8.4-10.2) mg/dL Ionized Calcium Ky (4.5-5.3) mg/dL Magnesium (1.6-2.3) mg/dL Alkaline Phosphatase (38-126) U/L Albumin (3.5-5.0) g/dL Crossmatch Microbiology - Last 24 Hours (Table) 11/11/22 17:45 Blood Culture Gram Stain - Preliminary Blood Blood Culture - Preliminary Gram Neg Bacilli 11/11/22 17:30 Blood Culture - Preliminary Blood
--- NOTE | 2022-11-13 11:04 | P.CNPUL ---
History of Present Illness Consult date: 11/13/22 Requesting physician: Gal Du Reason for consult: other (Critical care management) Chief complaint: Fever, weakness History of present illness: This is a 76-year-old frail male patient with a known history of metastatic prostate cancer with chronic Law[place] catheter, pancreatic cancer, daily alcohol use, nonsmoker. He presented to the emergency room on 11/11/2022 with complaints of fever and weakness. X-ray revealed a possible posterior infiltrate. White count 32. Potassium hemoglobin 7.2. Platelets 94,000. Sodium 133. Potassium 4.9. Bicarb 12. BUN 69. Creatinine 5.17. Glucose 118. Initial lactic acid 3.3 currently 1.6. Urine with large leukocytes, high WBCs and many bacteria. He was initiated on Zosyn and admitted to the floor. A rapid response team was called approximately 1:00 this morning for hypotension. He was transferred to the intensive care unit after receiving a 500 ML bolus. He since been initiated on norepinephrine currently at 0.04 mg/kg/m. He is receiving D5W with 3 A of bicarb at 125 ML's per hour. Continued on Zosyn. He is status post 1 unit of packed red blood cells for hemoglobin of 6.2 currently 8.2. Plan is for EGD on 11/16/2022. He is currently resting in bed. Awake and alert in no acute distress. He is maintaining good O2 saturations in the 90s on room air. Afebrile. No tachycardia. No tachypnea. Review of Systems REVIEW OF SYSTEMS: CONSTITUTIONAL: Positive for fever, weakness. Denies any recent significant weight loss or weight gain. EYES: Denies change in vision. EARS, NOSE, MOUTH, THROAT: Denies headaches, denies sore throat. CARDIOVASCULAR: Denies chest pain, palpitations or syncopal episodes. RESPIRATORY: Denies shortness of breath, cough, congestion or hemoptysis. GASTROINTESTINAL: Denies change in appetite, denies abdominal pain GENITOURINARY: Positive for infections. MUSKULOSKELETAL: Denies pain, denies swelling. INTEGUMENTARY: Denies rash, denies eczema. NEUROLOGICAL: Denies recent memory loss, no recent seizure activity. PSYCHIATRIC: Denies anxiety, denies depression. HEMATOLOGIC/LYMPHATIC: Denies anemia, denies enlarged lymph nodes. Past Medical History Past Medical History: Cancer Additional Past Medical History / Comment(s): back pain, prostate cancer, bone cancer, pancreatic cancer. Pt. stated he has raynauds syndrome History of Any Multi-Drug Resistant Organisms: None Reported Past Surgical History: Hernia Repair, Tonsillectomy Additional Past Surgical History / Comment(s): fatty tumor removd right arm, oral surgery Past Anesthesia/Blood Transfusion Reactions: No Reported Reaction Past Psychological History: No Psychological Hx Reported Smoking Status: Never smoker Past Alcohol Use History: Daily Past Drug Use History: None Reported - Past Family History Father Family Medical History: Cancer Additional Family Medical History / Comment(s): Lung cancer Mother Family Medical History: Cancer Additional Family Medical History / Comment(s): Pt. stated "cancer of nerves of liver" Medications and Allergies Home Medications Medication Instructions Recorded Confirmed Type Acetaminophen [Tylenol Arthritis] 1,300 mg PO Q6H PRN 11/11/22 11/11/22 History Enzalutamide [Xtandi] 160 mg PO DAILY 11/11/22 11/11/22 History Allergies Allergy/AdvReac Type Severity Reaction Status Date / Time Sulfa (Sulfonamide Allergy Hallucinati Verified 11/11/22 18:52 Antibiotics) ons Physical Exam Vitals: Vital Signs Temp Pulse Pulse Resp BP BP Pulse Ox 11/13/22 10:00 74 29 H 102/53 92 L 11/13/22 09:00 78 20 114/56 96 11/13/22 08:00 97.9 F 77 18 103/56 97 11/13/22 07:00 81 29 H 108/55 98 11/13/22 06:45 80 22 114/54 97 11/13/22 06:30 79 12 101/62 98 11/13/22 06:15 78 26 H 127/56 97 11/13/22 06:00 82 22 118/59 98 11/13/22 05:45 80 14 108/53 96 11/13/22 05:30 81 25 H 109/53 98 11/13/22 05:15 81 18 101/54 98 11/13/22 05:00 80 21 104/50 97 11/13/22 04:45 83 22 91/53 98 11/13/22 04:30 83 22 107/51 98 11/13/22 04:15 82 21 99/51 97 11/13/22 04:00 98.1 F 83 21 100/50 96 11/13/22 03:45 87 22 91/52 97 11/13/22 03:30 86 22 99/53 99 11/13/22 03:15 89 24 96/50 98 11/13/22 03:00 90 24 100/49 99 11/13/22 02:45 89 22 94/54 100 11/13/22 02:30 91 24 88/50 99 11/13/22 02:15 90 28 H 116/50 100 11/13/22 02:00 90 21 97/55 98 11/13/22 01:45 90 22 96/58 98 11/13/22 01:30 89 15 96/45 94 L 11/13/22 01:15 97.9 F 89 19 95/50 93 L 11/13/22 01:00 90 22 103/45 11/13/22 00:45 93 21 11/13/22 00:30 86/43 11/13/22 00:18 97 86/43 92 L 11/13/22 00:15 94 27 H 71/45 97 11/13/22 00:14 100 71/45 11/13/22 00:11 110 H 62/46 11/13/22 00:07 102 H 25 H 80/40 11/13/22 00:05 88 28 H 81/40 97 11/13/22 00:00 109 H 23 81/40 96 11/12/22 23:45 102 H 34 H 84/58 96 11/12/22 23:30 24 94/62 96 11/12/22 23:15 101 H 30 H 85/43 96 11/12/22 23:00 99 105 H 25 H 132/99 98 11/12/22 22:45 93 27 H 95 11/12/22 22:37 98 29 H 97 11/12/22 18:11 97.4 F L 70 17 80/41 98 11/12/22 16:01 97.8 F 76 17 88/51 100 11/12/22 13:36 97.8 F 77 17 92/54 98 11/12/22 12:45 97.8 F 76 16 90/56 99 11/12/22 11:26 97.7 F 74 18 82/48 99 11/12/22 11:06 97.8 F 76 17 71/50 100 Intake and Output 11/12/22 11/13/22 11/13/22 22:59 06:59 14:59 Intake Total 1214.695 375 Output Total 150 0 110 Balance -150 1214.695 265 Intake: IV 1075 375 Calcium Gluconate in NaCl 100 2 gm In Saline 1 100ml. bag @ 100 mls/hr IVPB ONCE ONE Rx#:[id number] Dextrose 5% in Water 1, 875 375 000 ml @ 125 mls/hr IV . Q9H12M YOVANI with Sodium Bicarb (1 Meq/ml) 150 ml Rx#:[id number] Magnesium Sulfate-D5w Pmx 100 1 gm In Dextrose/Water 1 100ml.bag @ 100 mls/hr IVPB Q1H YOVANI Rx#: [id number] Intake, IV Titration 139.695 Amount Norepinephrine 4 mg In 139.695 Sodium Chloride 0.9% 250 ml @ 0.03 MCG/KG/MIN 10. 369 mls/hr IV .Q24H YOVANI Rx#:[id number] Output: Urine 150 0 110 Uretheral ([place]) 150 Other: Voiding Method Indwelling Catheter Weight 90.718 kg GENERAL EXAM: Alert, pleasant, frail 76-year-old male, on room air, comfortable in no apparent distress. HEAD: Normocephalic. EYES: Normal reaction of pupils, equal size. NOSE: Clear with pink turbinates. THROAT: No erythema or exudates. NECK: No masses, no JVD. CHEST: No chest wall deformity. LUNGS: Equal air entry with no crackles, wheeze, rhonchi or dullness. CVS: S1 and S2 normal with no audible murmur, regular rhythm. ABDOMEN: No hepatosplenomegaly, normal bowel sounds, no guarding or rigidity. SPINE: No scoliosis or deformity SKIN: No rashes CENTRAL NERVOUS SYSTEM: No focal deficits, tone is normal in all 4 extremities. EXTREMITIES: There is no peripheral edema. No clubbing, no cyanosis. Peripheral pulses are intact. Results - Laboratory Findings CBC and BMP: 11/13/22 03:50 11/13/22 07:33 Abnormal lab findings: Abnormal Labs 11/11/22 11/11/22 11/11/22 17:49 17:49 17:49 WBC 22.9 H RBC 2.66 L Hgb 7.9 L Hct 24.2 L MCHC RDW Plt Count Neutrophils # (Manual) 18.30 H Lymphocytes # (Manual) 0.46 L Monocytes # (Manual) 4.35 H Sodium 131 L Chloride Carbon Dioxide 12 L BUN 75 H Creatinine 4.68 H Glucose Plasma Lactic Acid Matt 4.8 H* Calcium 7.8 L Ionized Calcium Ky Magnesium Alkaline Phosphatase Albumin 3.3 L Urine Protein Urine Blood Ur Leukocyte Esterase Urine RBC Urine WBC Urine WBC Clumps Urine Bacteria Crossmatch 11/11/22 11/11/22 11/12/22 19:14 20:29 01:07 WBC RBC Hgb Hct MCHC RDW Plt Count Neutrophils # (Manual) Lymphocytes # (Manual) Monocytes # (Manual) Sodium Chloride Carbon Dioxide BUN Creatinine Glucose Plasma Lactic Acid Matt 3.3 H* 2.6 H* Calcium Ionized Calcium Ky Magnesium Alkaline Phosphatase Albumin Urine Protein 2+ H Urine Blood Large H Ur Leukocyte Esterase Large H Urine RBC 158 H Urine WBC >182 H Urine WBC Clumps Many H Urine Bacteria Many H Crossmatch 11/12/22 11/12/22 11/12/22 04:42 04:42 06:20 WBC 30.4 H RBC 2.14 L Hgb 6.2 L* D Hct 19.7 L* MCHC RDW 15.6 H Plt Count 121 L Neutrophils # (Manual) 23.40 H Lymphocytes # (Manual) Monocytes # (Manual) 3.95 H Sodium 131 L Chloride 108 H Carbon Dioxide 11 L BUN 69 H Creatinine 4.60 H Glucose 102 H Plasma Lactic Acid Matt Calcium 6.9 L Ionized Calcium Ky Magnesium Alkaline Phosphatase Albumin Urine Protein Urine Blood Ur Leukocyte Esterase Urine RBC Urine WBC Urine WBC Clumps Urine Bacteria Crossmatch See Detail 11/12/22 11/13/22 11/13/22 23:42 00:25 00:25 WBC 30.9 H RBC 2.84 L Hgb 8.2 L D Hct 26.6 L MCHC 30.7 L RDW Plt Count 122 L Neutrophils # (Manual) Lymphocytes # (Manual) Monocytes # (Manual) Sodium Chloride Carbon Dioxide BUN Creatinine 5.21 H Glucose Plasma Lactic Acid Matt 5.2 H* Calcium Ionized Calcium Ky Magnesium Alkaline Phosphatase Albumin Urine Protein Urine Blood Ur Leukocyte Esterase Urine RBC Urine WBC Urine WBC Clumps Urine Bacteria Crossmatch 11/13/22 11/13/22 11/13/22 00:25 00:25 03:50 WBC 32.0 H RBC 2.44 L Hgb 7.2 L Hct 23.0 L MCHC RDW Plt Count 94 L Neutrophils # (Manual) 23.68 H Lymphocytes # (Manual) Monocytes # (Manual) 6.08 H Sodium 134 L Chloride 110 H Carbon Dioxide 7 L* BUN 71 H Creatinine 5.25 H Glucose Plasma Lactic Acid Matt Calcium 7.5 L Ionized Calcium Ky 4.3 L Magnesium 1.3 L Alkaline Phosphatase 127 H Albumin 2.6 L Urine Protein Urine Blood Ur Leukocyte Esterase Urine RBC Urine WBC Urine WBC Clumps Urine Bacteria Crossmatch 11/13/22 11/13/22 03:50 07:33 WBC RBC Hgb Hct MCHC RDW Plt Count Neutrophils # (Manual) Lymphocytes # (Manual) Monocytes # (Manual) Sodium 133 L Chloride Carbon Dioxide 12 L BUN 69 H Creatinine 5.17 H Glucose 118 H Plasma Lactic Acid Matt 2.7 H* Calcium 7.4 L Ionized Calcium Ky Magnesium Alkaline Phosphatase Albumin 2.6 L Urine Protein Urine Blood Ur Leukocyte Esterase Urine RBC Urine WBC Urine WBC Clumps Urine Bacteria Crossmatch - Diagnostic Findings Chest x-ray: image reviewed Assessment and Plan Assessment: Acute urinary tract infection secondary to gram-negative bacilli Septic shock secondary to bacteremia, gram-negative bacilli History of prostate cancer with chronic indwelling [place] catheter Acute on chronic anemia with a hemoglobin of 6.2 requiring 1 unit packed red blood cells, currently 8.2 History of pancreatic cancer History of daily alcohol use Plan: The patient was seen and evaluated Chest x-ray, labs and medications reviewed Titrate the norepinephrine as tolerated Continue Zosyn Continue bicarb drip Daily CBC, BMP Plan is for EGD/colonoscopy 11/16/2022 DO NOT RESUSCITATE/DO NOT INTUBATE CODE STATUS We will continue to follow and make further recommendations based on his clinical status I have personally seen and examined the patient, performed the documentation and the assessment and plan as written. Number of minutes spent on the visit: 20.
[2022-11-13] MEDS ORDERED: MAGNESIUM SULFATE-D5W PMX 1 GM in DEXTROSE/WATER 1 100ML.BAG IVPB ONE (11:41)
[2022-11-13 12:27] LABS: Glucose,Whole Blood 147 mg/dL (70-110)
--- NOTE | 2022-11-13 14:56 | P.PN ---
Subjective Progress Note Date: 11/13/22 Principal diagnosis: Sepsis, gram-negative UTI and bacteremia Patient is a 76-year-old male with a past medical history significant for prostate cancer and the patient also have a chronic indwelling Lawton catheter present in the hospital for weakness and fever patient has been diagnosed with sepsis secondary to catheter associated UTI requiring pressor support and admission to the ICU. On today's evaluation that is 11/13/2022, the patient continues to be afebrile, , the patient is breathing comfortably on room air , the patient denies chest pain shortness or cough, patient denies nausea / vomiting and no diarrhea, denies having any abdominal pain Patient did have a white count of 32,000, creatinine is 5.17, blood in urine with gram-negative bacilli Objective - Vital Signs Vital signs: Vital Signs Temp 97.9 F 11/13/22 08:00 Pulse 74 11/13/22 10:00 Resp 29 H 11/13/22 10:00 BP 102/53 11/13/22 10:00 Pulse Ox 92 L 11/13/22 10:00 FiO2 Intake & Output 11/12/22 11/13/22 11/13/22 18:59 06:59 18:59 Intake Total 310 1214.695 375 Output Total 450 0 110 Balance -140 1214.695 265 Weight 90.718 kg Intake: IV 1075 375 Calcium Gluconate in NaCl 100 2 gm In Saline 1 100ml. bag @ 100 mls/hr IVPB ONCE ONE Rx#:[id number] Dextrose 5% in Water 1, 875 375 000 ml @ 125 mls/hr IV . Q9H12M YOVANI with Sodium Bicarb (1 Meq/ml) 150 ml Rx#:[id number] Magnesium Sulfate-D5w Pmx 100 1 gm In Dextrose/Water 1 100ml.bag @ 100 mls/hr IVPB Q1H YOVANI Rx#: [id number] Intake, IV Titration 139.695 Amount Norepinephrine 4 mg In 139.695 Sodium Chloride 0.9% 250 ml @ 0.03 MCG/KG/MIN 10. 369 mls/hr IV .Q24H YOVANI Rx#:[id number] Blood Product 310 Rc As-1 Unit 310 [id number] Output: Urine 450 0 110 Uretheral (Lawton) 450 Other: Voiding Method Indwelling Catheter - Exam GENERAL DESCRIPTION: An elderly male lying in bed in no distress RESPIRATORY SYSTEM: Unlabored breathing , decreased breath sounds at bases HEART: S1 S2 regular rate and rhythm , ABDOMEN: Soft , no tenderness EXTREMITIES: No edema feet - Labs CBC & Chem 7: 11/13/22 03:50 11/13/22 07:33 Labs: Abnormal Lab Results - Last 24 Hours (Table) 11/12/22 11/12/22 11/13/22 Range/Units 06:20 23:42 00:25 WBC 30.9 H (3.8-10.6) k/uL RBC 2.84 L (4.30-5.90) m/uL Hgb 8.2 L D (13.0-17.5) gm/dL Hct 26.6 L (39.0-53.0) % MCHC 30.7 L (31.0-37.0) g/dL Plt Count 122 L (150-450) k/uL Neutrophils # (Manual) (1.3-7.7) k/uL Monocytes # (Manual) (0-1.0) k/uL Sodium (137-145) mmol/L Chloride (98-107) mmol/L Carbon Dioxide (22-30) mmol/L BUN (9-20) mg/dL Creatinine 5.21 H (0.66-1.25) mg/dL Glucose (74-99) mg/dL Plasma Lactic Acid Matt (0.7-2.0) mmol/L Calcium (8.4-10.2) mg/dL Ionized Calcium Ky (4.5-5.3) mg/dL Magnesium (1.6-2.3) mg/dL Alkaline Phosphatase (38-126) U/L Albumin (3.5-5.0) g/dL Crossmatch See Detail 11/13/22 11/13/22 11/13/22 Range/Units 00:25 00:25 00:25 WBC (3.8-10.6) k/uL RBC (4.30-5.90) m/uL Hgb (13.0-17.5) gm/dL Hct (39.0-53.0) % MCHC (31.0-37.0) g/dL Plt Count (150-450) k/uL Neutrophils # (Manual) (1.3-7.7) k/uL Monocytes # (Manual) (0-1.0) k/uL Sodium 134 L (137-145) mmol/L Chloride 110 H (98-107) mmol/L Carbon Dioxide 7 L* (22-30) mmol/L BUN 71 H (9-20) mg/dL Creatinine 5.25 H (0.66-1.25) mg/dL Glucose (74-99) mg/dL Plasma Lactic Acid Matt 5.2 H* (0.7-2.0) mmol/L Calcium 7.5 L (8.4-10.2) mg/dL Ionized Calcium Ky 4.3 L (4.5-5.3) mg/dL Magnesium 1.3 L (1.6-2.3) mg/dL Alkaline Phosphatase 127 H (38-126) U/L Albumin 2.6 L (3.5-5.0) g/dL Crossmatch 11/13/22 11/13/22 11/13/22 Range/Units 03:50 03:50 07:33 WBC 32.0 H (3.8-10.6) k/uL RBC 2.44 L (4.30-5.90) m/uL Hgb 7.2 L (13.0-17.5) gm/dL Hct 23.0 L (39.0-53.0) % MCHC (31.0-37.0) g/dL Plt Count 94 L (150-450) k/uL Neutrophils # (Manual) 23.68 H (1.3-7.7) k/uL Monocytes # (Manual) 6.08 H (0-1.0) k/uL Sodium 133 L (137-145) mmol/L Chloride (98-107) mmol/L Carbon Dioxide 12 L (22-30) mmol/L BUN 69 H (9-20) mg/dL Creatinine 5.17 H (0.66-1.25) mg/dL Glucose 118 H (74-99) mg/dL Plasma Lactic Acid Matt 2.7 H* (0.7-2.0) mmol/L Calcium 7.4 L (8.4-10.2) mg/dL Ionized Calcium Ky (4.5-5.3) mg/dL Magnesium (1.6-2.3) mg/dL Alkaline Phosphatase (38-126) U/L Albumin 2.6 L (3.5-5.0) g/dL Crossmatch Microbiology - Last 24 Hours (Table) 11/11/22 19:14 Urine Culture - Preliminary Urine,Voided Gram Neg Bacilli 11/11/22 17:45 Blood Culture Gram Stain - Preliminary Blood Blood Culture - Preliminary Gram Neg Bacilli 11/11/22 17:30 Blood Culture - Preliminary Blood Assessment and Plan (1) Sepsis Current Visit: Yes Status: Acute Code(s): A41.9 - SEPSIS, UNSPECIFIED ORGANISM SNOMED Code(s): 79048614 (2) UTI (urinary tract infection) Current Visit: Yes Status: Acute Code(s): N39.0 - URINARY TRACT INFECTION, SITE NOT SPECIFIED SNOMED Code(s): 15257766 Plan: 1patient presented to hospital with sepsis in this patient with the fever tachycardia elevated white count and hypotension sources complicated/catheter assisted urinary tract infection in this patient with a recent urine culture positive for Enterococcus and E. coli could be the same pathogen. 2patient with renal insufficiency and high risk of nephrotoxicity from vancomycin. 3patient continue with Zosyn while waiting for the culture finalized and monitor clinical course closely 5ultrasound of the kidney bladder with bilateral hydronephrosis and nonspecific diabetes within the right collecting system, complex lesion within the left kidney may benefit from neurology evaluation Dictation was produced using [employer] dictation software. please excuse any grammatical, word or spelling errors. Time with Patient: Less than 30
--- NOTE | 2022-11-13 15:19 | P.PN ---
Subjective Progress Note Date: 11/13/22 76 yo m with past medical history of chronic back pain, coronary artery disease A. fib with RVR, thrombocytopenia, history of prostate cancer, bone cancer (stage IV cancer) Patient was diagnosed with prostate cancer about one month ago with his urologist Dr. Pineda since then he has indwelling Lawton catheter. One day prior to admission patient becomes confused and incoherent as per at bedside he felt very weak and he fell on his way going to the bathroom without losing consciousness. So brought him to the hospital. This morning he is awake alert and oriented 3 but very weak, mildly confused. Denies any specific complaints right now but usually was complaining of from severe back pain that is been improved with morphine here in the emergency room. Also Lawton catheter was transferred to the emergency room for suspicion of infection. Patient denies any chest pain or dyspnea. No colon. No abdominal pain or vomiting or diarrhea. Patient has been complaining of from burning. No neurological complaints. Patient upon dose of supposed to receive a second dose of hormone therapy. Sahil agosto is on chemotherapy. On admission he had a fever of 103.1. Blood pressure borderline with systolic 94-103 this morning. Labs reviewed on admission, hemoglobin dropped to 7.9 down to 6.2. WBC 22.9 and 30.4. Platelet count within the reference range. Creatinine elevated 4.62. Elevated lactic acid came back to normal. Sodium 131, potassium 4.7. Liver enzymes not elevated. Urinalysis suspicious for infection Pharmacist not detected. Chest x-ray showed posterior pneumonia possibility. EKG showing sinus tachycardia and [address]-T changes Objective - Vital Signs Vital signs: Vital Signs Temp 97.9 F 11/13/22 08:00 Pulse 77 11/13/22 08:00 Resp 18 11/13/22 08:00 BP 103/56 11/13/22 08:00 Pulse Ox 97 11/13/22 08:00 FiO2 Intake & Output 11/12/22 11/13/22 11/13/22 18:59 06:59 18:59 Intake Total 310 1214.695 125 Output Total 450 0 85 Balance -140 1214.695 40 Weight 90.718 kg Intake: IV 1075 125 Calcium Gluconate in NaCl 100 2 gm In Saline 1 100ml. bag @ 100 mls/hr IVPB ONCE ONE Rx#:[id number] Dextrose 5% in Water 1, 875 125 000 ml @ 125 mls/hr IV . Q9H12M YOVANI with Sodium Bicarb (1 Meq/ml) 150 ml Rx#:[id number] Magnesium Sulfate-D5w Pmx 100 1 gm In Dextrose/Water 1 100ml.bag @ 100 mls/hr IVPB Q1H YOVANI Rx#: [id number] Intake, IV Titration 139.695 Amount Norepinephrine 4 mg In 139.695 Sodium Chloride 0.9% 250 ml @ 0.03 MCG/KG/MIN 10. 369 mls/hr IV .Q24H YOVANI Rx#:[id number] Blood Product 310 Rc As-1 Unit 310 [id number] Output: Urine 450 0 85 Uretheral (Lawton) 450 Other: Voiding Method Indwelling Catheter - Exam GENERAL: The patient is alert and oriented x3, not in any acute distress. Well developed, well nourished. Pale and generally weak HEENT: Pupils are round and equally reacting to light. EOMI. No scleral icterus. No conjunctival pallor. Normocephalic, atraumatic. No pharyngeal erythema. No thyromegaly. CARDIOVASCULAR: S1 and S2 present. No murmurs, rubs, or gallops. PULMONARY: Chest is clear to auscultation, no wheezing , no crackles. -ABDOMEN: Soft, nontender, nondistended, normoactive bowel sounds. No palpable organomegaly. Lawton catheter in place MUSCULOSKELETAL: No joint swelling or deformity. EXTREMITIES: No cyanosis, clubbing, or pedal edema. NEUROLOGICAL: Gross neurological examination did not reveal any focal deficits. SKIN: No rashes. no petechiae. - Labs CBC & Chem 7: 11/13/22 03:50 11/13/22 07:33 Labs: Abnormal Lab Results - Last 24 Hours (Table) 11/12/22 11/12/22 11/13/22 Range/Units 06:20 23:42 00:25 WBC 30.9 H (3.8-10.6) k/uL RBC 2.84 L (4.30-5.90) m/uL Hgb 8.2 L D (13.0-17.5) gm/dL Hct 26.6 L (39.0-53.0) % MCHC 30.7 L (31.0-37.0) g/dL Plt Count 122 L (150-450) k/uL Neutrophils # (Manual) (1.3-7.7) k/uL Monocytes # (Manual) (0-1.0) k/uL Sodium (137-145) mmol/L Chloride (98-107) mmol/L Carbon Dioxide (22-30) mmol/L BUN (9-20) mg/dL Creatinine 5.21 H (0.66-1.25) mg/dL Glucose (74-99) mg/dL Plasma Lactic Acid Matt (0.7-2.0) mmol/L Calcium (8.4-10.2) mg/dL Ionized Calcium Ky (4.5-5.3) mg/dL Magnesium (1.6-2.3) mg/dL Alkaline Phosphatase (38-126) U/L Albumin (3.5-5.0) g/dL Crossmatch See Detail 11/13/22 11/13/22 11/13/22 Range/Units 00:25 00:25 00:25 WBC (3.8-10.6) k/uL RBC (4.30-5.90) m/uL Hgb (13.0-17.5) gm/dL Hct (39.0-53.0) % MCHC (31.0-37.0) g/dL Plt Count (150-450) k/uL Neutrophils # (Manual) (1.3-7.7) k/uL Monocytes # (Manual) (0-1.0) k/uL Sodium 134 L (137-145) mmol/L Chloride 110 H (98-107) mmol/L Carbon Dioxide 7 L* (22-30) mmol/L BUN 71 H (9-20) mg/dL Creatinine 5.25 H (0.66-1.25) mg/dL Glucose (74-99) mg/dL Plasma Lactic Acid Matt 5.2 H* (0.7-2.0) mmol/L Calcium 7.5 L (8.4-10.2) mg/dL Ionized Calcium Ky 4.3 L (4.5-5.3) mg/dL Magnesium 1.3 L (1.6-2.3) mg/dL Alkaline Phosphatase 127 H (38-126) U/L Albumin 2.6 L (3.5-5.0) g/dL Crossmatch 11/13/22 11/13/22 11/13/22 Range/Units 03:50 03:50 07:33 WBC 32.0 H (3.8-10.6) k/uL RBC 2.44 L (4.30-5.90) m/uL Hgb 7.2 L (13.0-17.5) gm/dL Hct 23.0 L (39.0-53.0) % MCHC (31.0-37.0) g/dL Plt Count 94 L (150-450) k/uL Neutrophils # (Manual) 23.68 H (1.3-7.7) k/uL Monocytes # (Manual) 6.08 H (0-1.0) k/uL Sodium 133 L (137-145) mmol/L Chloride (98-107) mmol/L Carbon Dioxide 12 L (22-30) mmol/L BUN 69 H (9-20) mg/dL Creatinine 5.17 H (0.66-1.25) mg/dL Glucose 118 H (74-99) mg/dL Plasma Lactic Acid Matt 2.7 H* (0.7-2.0) mmol/L Calcium 7.4 L (8.4-10.2) mg/dL Ionized Calcium Ky (4.5-5.3) mg/dL Magnesium (1.6-2.3) mg/dL Alkaline Phosphatase (38-126) U/L Albumin 2.6 L (3.5-5.0) g/dL Crossmatch Microbiology - Last 24 Hours (Table) 11/11/22 17:45 Blood Culture Gram Stain - Preliminary Blood Blood Culture - Preliminary Gram Neg Bacilli 11/11/22 17:30 Blood Culture - Preliminary Blood Assessment and Plan Assessment: acute urinary tract infection, associated with indwelling Lawton catheter Sepsis secondary to above Acute kidney injury and failure, nonoliguric acute sever anemia requiring blood transufion metabolic encephalopathy History of prostate cancer, colon cancer and pancreatic cancer Paroxysmal A. fib with RVR moderate Severe Chronic back pain, related to his metastatic disease Plan: continue with IV hydration Continue with antibiotic, currently on vancomycin and cefepime is started in the emergency room Infectious disease consult was ordered. I will consult also nephrology service Consult surgery service for severe anemia. transfuse 1 unit of blood and monitor hemoglobin avoid blood thinner Pain management Labs and medication were reviewed.. Continue same treatment. Continue with symptomatic treatment. Resume home medication. Monitor labs and vitals. DVT and GI prophylaxis. Further recommendations as per clinical course of the patient DVT prophylaxis: no Subcutaneous heparin GI Prophylaxis: Pepcid Protonix PT/OT: Deferred Prognosis is guarded
--- NOTE | 2022-11-13 15:39 | P.HPIHPCON ---
History of Present Illness H&P Date: 11/13/22 Chief Complaint: Bilateral hydronephrosis This is a 76-year-old male with history of metastatic prostate cancer. Admitted to the hospital with sepsis and acute kidney injury. Urology is consulted for evidence of bilateral hydronephrosis seen on renal bladder ultrasound. He was recently diagnosed with metastatic cancer by Dr. Huang was started on androgen deprivation therapy. He underwent imaging time of diagnosis which showed no evidence of hydronephrosis, CT was done on October 26. On admission to the hospital he underwent renal ultrasound showed evidence of bilateral hydronephrosis. He does have history of chronic retention be managed with Lawton catheter. Denies any gross hematuria or flank pain. His creatinine is 5.17, his creatinine on October 26 was 3.2 Consent for Procedure: I have explained the operation/procedure to the patient, including the risks, benefits, side effects, alternative therapies (including not receiving the proposed treatment or service), the likelihood of the patient achieving his/her goals, and potential recuperation problems for the procedure/sedation/analgesia, as well as any blood products, if indicated. I also explained to the patient the risks, benefits and side effects of the alternatives, as well as the risks related to not receiving the proposed procedure, care, treatment, or services. - Constitutional Constitutional: Reports fatigue, Reports weakness - EENT Ears, nose, mouth and throat: Denies headache, Denies sore throat - Cardiovascular Cardiovascular: Denies chest pain, Denies shortness of breath - Respiratory Respiratory: Denies cough, Denies 7 - Gastrointestinal Gastrointestinal: Reports abdominal pain, Denies nausea, Denies vomiting - Genitourinary (Female) Genitourinary: Denies flank pain, Denies hematuria - Neurological Neurological: Denies numbness, Denies weakness Past Medical History Past Medical History: Cancer Additional Past Medical History / Comment(s): back pain, prostate cancer, bone cancer, pancreatic cancer. Pt. stated he has raynauds syndrome History of Any Multi-Drug Resistant Organisms: None Reported Past Surgical History: Hernia Repair, Tonsillectomy Additional Past Surgical History / Comment(s): fatty tumor removd right arm, oral surgery Past Anesthesia/Blood Transfusion Reactions: No Reported Reaction Past Psychological History: No Psychological Hx Reported Smoking Status: Never smoker Past Alcohol Use History: Daily Past Drug Use History: None Reported - Past Family History Father Family Medical History: Cancer Additional Family Medical History / Comment(s): Lung cancer Mother Family Medical History: Cancer Additional Family Medical History / Comment(s): Pt. stated "cancer of nerves of liver" Medications and Allergies Home Medications Medication Instructions Recorded Confirmed Type Acetaminophen [Tylenol Arthritis] 1,300 mg PO Q6H PRN 11/11/22 11/11/22 History Enzalutamide [Xtandi] 160 mg PO DAILY 11/11/22 11/11/22 History Allergies Allergy/AdvReac Type Severity Reaction Status Date / Time Sulfa (Sulfonamide Allergy Hallucinati Verified 11/11/22 18:52 Antibiotics) ons Surgical - Exam Vital Signs Temp Pulse Resp BP Pulse Ox 103.1 F H 116 H 28 H 108/53 97 11/11/22 17:21 11/11/22 17:21 11/11/22 17:21 11/11/22 17:21 11/11/22 17:21 - General no distress, moderate pain - Eyes normal ocular movement, no pale - ENT normal nares, normal mucosa - Respiratory normal expansion, normal respiratory effort - Abdomen Abdomen: soft, non tender - Psychiatric oriented to time, oriented to person, oriented to place Results - Labs 11/13/22 03:50 11/13/22 07:33 Abnormal Lab Results - Last 24 Hours (Table) 11/12/22 11/13/22 11/13/22 Range/Units 23:42 00:25 00:25 WBC 30.9 H (3.8-10.6) k/uL RBC 2.84 L (4.30-5.90) m/uL Hgb 8.2 L D (13.0-17.5) gm/dL Hct 26.6 L (39.0-53.0) % MCHC 30.7 L (31.0-37.0) g/dL Plt Count 122 L (150-450) k/uL Neutrophils # (Manual) (1.3-7.7) k/uL Monocytes # (Manual) (0-1.0) k/uL Sodium (137-145) mmol/L Chloride (98-107) mmol/L Carbon Dioxide (22-30) mmol/L BUN (9-20) mg/dL Creatinine 5.21 H (0.66-1.25) mg/dL Glucose (74-99) mg/dL POC Glucose (mg/dL) (70-110) mg/dL Plasma Lactic Acid Matt 5.2 H* (0.7-2.0) mmol/L Calcium (8.4-10.2) mg/dL Ionized Calcium Ky (4.5-5.3) mg/dL Magnesium (1.6-2.3) mg/dL Alkaline Phosphatase (38-126) U/L Albumin (3.5-5.0) g/dL 11/13/22 11/13/22 11/13/22 Range/Units 00:25 00:25 03:50 WBC 32.0 H (3.8-10.6) k/uL RBC 2.44 L (4.30-5.90) m/uL Hgb 7.2 L (13.0-17.5) gm/dL Hct 23.0 L (39.0-53.0) % MCHC (31.0-37.0) g/dL Plt Count 94 L (150-450) k/uL Neutrophils # (Manual) 23.68 H (1.3-7.7) k/uL Monocytes # (Manual) 6.08 H (0-1.0) k/uL Sodium 134 L (137-145) mmol/L Chloride 110 H (98-107) mmol/L Carbon Dioxide 7 L* (22-30) mmol/L BUN 71 H (9-20) mg/dL Creatinine 5.25 H (0.66-1.25) mg/dL Glucose (74-99) mg/dL POC Glucose (mg/dL) (70-110) mg/dL Plasma Lactic Acid Matt (0.7-2.0) mmol/L Calcium 7.5 L (8.4-10.2) mg/dL Ionized Calcium Ky 4.3 L (4.5-5.3) mg/dL Magnesium 1.3 L (1.6-2.3) mg/dL Alkaline Phosphatase 127 H (38-126) U/L Albumin 2.6 L (3.5-5.0) g/dL 11/13/22 11/13/22 11/13/22 Range/Units 03:50 07:33 12:21 WBC (3.8-10.6) k/uL RBC (4.30-5.90) m/uL Hgb (13.0-17.5) gm/dL Hct (39.0-53.0) % MCHC (31.0-37.0) g/dL Plt Count (150-450) k/uL Neutrophils # (Manual) (1.3-7.7) k/uL Monocytes # (Manual) (0-1.0) k/uL Sodium 133 L (137-145) mmol/L Chloride (98-107) mmol/L Carbon Dioxide 12 L (22-30) mmol/L BUN 69 H (9-20) mg/dL Creatinine 5.17 H (0.66-1.25) mg/dL Glucose 118 H (74-99) mg/dL POC Glucose (mg/dL) 147 H (70-110) mg/dL Plasma Lactic Acid Matt 2.7 H* (0.7-2.0) mmol/L Calcium 7.4 L (8.4-10.2) mg/dL Ionized Calcium Ky (4.5-5.3) mg/dL Magnesium (1.6-2.3) mg/dL Alkaline Phosphatase (38-126) U/L Albumin 2.6 L (3.5-5.0) g/dL Microbiology - Last 24 Hours (Table) 11/11/22 19:14 Urine Culture - Preliminary Urine,Voided Gram Neg Bacilli 11/11/22 17:45 Blood Culture Gram Stain - Preliminary Blood Blood Culture - Preliminary Gram Neg Bacilli 11/11/22 17:30 Blood Culture - Preliminary Blood Diabetes panel 11/13/22 11/13/22 11/13/22 Range/Units 00:25 00:25 07:33 Sodium 134 L 133 L (137-145) mmol/L Potassium 4.5 4.9 (3.5-5.1) mmol/L Chloride 110 H 107 (98-107) mmol/L Carbon Dioxide 7 L* 12 L (22-30) mmol/L BUN 71 H 69 H (9-20) mg/dL Creatinine 5.21 H 5.25 H 5.17 H (0.66-1.25) mg/dL Glucose 90 118 H (74-99) mg/dL Calcium 7.5 L 7.4 L (8.4-10.2) mg/dL AST 27 23 (17-59) U/L ALT 19 17 (4-49) U/L Alkaline Phosphatase 127 H 107 (38-126) U/L Total Protein 6.6 6.4 (6.3-8.2) g/dL Albumin 2.6 L 2.6 L (3.5-5.0) g/dL Calcium panel 11/13/22 11/13/22 11/13/22 Range/Units 00:25 00:25 07:33 Calcium 7.5 L 7.4 L (8.4-10.2) mg/dL Ionized Calcium Ky 4.3 L (4.5-5.3) mg/dL Albumin 2.6 L 2.6 L (3.5-5.0) g/dL Pituitary panel 11/13/22 11/13/22 11/13/22 Range/Units 00:25 00:25 07:33 Sodium 134 L 133 L (137-145) mmol/L Potassium 4.5 4.9 (3.5-5.1) mmol/L Chloride 110 H 107 (98-107) mmol/L Carbon Dioxide 7 L* 12 L (22-30) mmol/L BUN 71 H 69 H (9-20) mg/dL Creatinine 5.21 H 5.25 H 5.17 H (0.66-1.25) mg/dL Glucose 90 118 H (74-99) mg/dL Calcium 7.5 L 7.4 L (8.4-10.2) mg/dL Adrenal panel 11/13/22 11/13/22 11/13/22 Range/Units 00:25 00:25 07:33 Sodium 134 L 133 L (137-145) mmol/L Potassium 4.5 4.9 (3.5-5.1) mmol/L Chloride 110 H 107 (98-107) mmol/L Carbon Dioxide 7 L* 12 L (22-30) mmol/L BUN 71 H 69 H (9-20) mg/dL Creatinine 5.21 H 5.25 H 5.17 H (0.66-1.25) mg/dL Glucose 90 118 H (74-99) mg/dL Calcium 7.5 L 7.4 L (8.4-10.2) mg/dL Total Bilirubin 0.9 0.8 (0.2-1.3) mg/dL AST 27 23 (17-59) U/L ALT 19 17 (4-49) U/L Alkaline Phosphatase 127 H 107 (38-126) U/L Total Protein 6.6 6.4 (6.3-8.2) g/dL Albumin 2.6 L 2.6 L (3.5-5.0) g/dL Assessment and Plan Assessment: 76-year-old male admitted to the hospital with sepsis, acute kidney injury. He does have history metastatic prostate cancer Was recently diagnosed. Underwent renal ultrasound showed evidence of bilateral hydronephrosis. Of note he did have a CT on October 26 showed no evidence hydronephrosis. His creatinine is elevated at 5.17, creat was 3.2 earlier this month. Discussed with him his acute kidney injury is most likely secondary to his sepsis, but given the finding of hydronephrosis and order CT abdomen and pelvis to rule out obstructive etiology that could be contributing to his ERIKA
--- NOTE | 2022-11-13 17:43 | CT ---
EXAMINATION TYPE: CT abdomen pelvis wo con DATE OF EXAM: 11/13/2022 COMPARISON: 10/26/2022 HISTORY: 76-year-old male hydronephrosis CT DLP: 655.1 mGycm. Automated exposure control for dose reduction was used. TECHNIQUE: Contiguous axial scanning of the abdomen and pelvis without IV contrast. Coronal and sagit sera reconstructions performed. FINDINGS: Generalized anasarca change. Possible underlying anemia given low density of the blood pool. Correlat e with hemoglobin and hematocrit levels. There is trace right pleural effusion. Some septal lines in the lower lungs. Suspected 1.6 cm cyst posterior right liver lobe. Gallbladder is hydropic and 4.5 cm wide. There is s ome tracking fluid adjacent to the fundus of the gallbladder. This should be correlated clinically. Adrenal glands and pancreas show no gross abnormality by noncontrast CT. Spleen enlarged at 16.4 cm. Possible comminuted cyst or mass along the left lateral mid kidney measuring 4.9 cm. Further ultrasou nd evaluation is recommended. Prominent size to the bilateral lobulated kidneys. There is moderate hy dronephrosis on both sides. Unable to follow either ureter but the dilatation of the bilateral renal collecting systems has considerably increased from 10/26/2022. Possible 6 mm calculus right UVJ. Generalized anasarca change. Presacral edema, and prominent mesenteric edema throughout. No dilated small bowel or free air. No significant stool burden. Bladder largely collapsed by Lawton catheter. Numerous pelvic phleboliths. Prostate gland or alignment size of 4.1 cm wide. No obvious pelvic lymphadenopathy. Again, marked anasarca changes. Bones: Degenerated levoconvex scoliosis. Numerous sclerotic foci throughout the visualized osseous st ructures. IMPRESSION: 1. Moderate bilateral hydronephrosis, considerably increased from prior exam. The exact etiology is u nclear as we are unable to clearly follow either ureter. Possible 6 mm stone at the right UVJ. 2. Correlate for third spacing/fluid overload state. There is severe generalized anasarca change and new small right pleural effusion. Presacral edema. Possible early pulmonary vascular congestion. 3. Correlate with hemoglobin levels to exclude underlying anemia given low density of the blood pool. 4. Lawton catheter in place. 5. Previously mentioned sclerotic osseous metastatic disease.
[2022-11-13] MEDS: MORPHINE SULFATE 4 MG/ML SYRINGE IV PRN (19:19)
[2022-11-13] MEDS ORDERED: LORazepam 2 MG/ML INJ IV PRN (19:39)
[2022-11-13 21:13] LABS: HCT 25.7 % (39.0-53.0); Hypochromasia Moderate; MCH 28.3 pg (25.0-35.0); MCHC 31.1 g/dL (31.0-37.0); MCV 91.1 fL (80.0-100.0); Platelet Count 103 k/uL (150-450); RBC 2.82 m/uL (4.30-5.90); RDW 15.9 % (11.5-15.5); WBC 27.8 k/uL (3.8-10.6)
[2022-11-13 22:45] LABS: Band Neutrophils % 2 %; Basophils # (M) 0.28 k/uL (0-0.2); Eosinophils # (M) 0.83 k/uL (0-0.7); Lymphocytes # (M) 2.22 k/uL (1.0-4.8); Monocytes # (M) 1.95 k/uL (0-1.0); Neutrophils % (M) 79 %; Nucleated Red Blood Cells 0 /100 WBC (0-0); Total Cells Counted 100
[2022-11-14 00:19] LABS: Glucose,Whole Blood 136 mg/dL (70-110)
[2022-11-14] MEDS: NOREPINEPHRINE 4 MG in SODIUM CHLORIDE 0.9% 250 ML IV SCH (03:51)
[2022-11-14] MEDS: DEXTROSE 5% IN WATER 1,000 ML with SODIUM BICARB (1 MEQ/ML) 150 ML IV SCH (04:43)
[2022-11-14] MEDS: MORPHINE SULFATE 4 MG/ML SYRINGE IV PRN (07:55)
[2022-11-14] MEDS: PANTOPRAZOLE 40 MG/10 ML VIAL IVP SCH (08:00)
[2022-11-14] MEDS: HEPARIN SODIUM,PORCINE 5,000 UNIT/ML 1 ML VIAL SQ SCH (08:00)
[2022-11-14] MEDS: PIPERACILLIN-TAZOBACTAM 3.375 GM in SODIUM CHLORIDE 0.9% 100 ML IVPB SCH (08:01)
[2022-11-14] MEDS: ACETAMINOPHEN TAB 325 MG TAB PO PRN (08:09)
[2022-11-14 08:32] VITALS: TEMP 96.4
[2022-11-14 09:16] LABS: African American GFR (CKD) 11 (>60 ml/min/1.73 sqM); Anion Gap 14 mmol/L; Blood Urea Nitrogen 68 mg/dL (9-20); Calcium 7.2 mg/dL (8.4-10.2); Carbon Dioxide 16 mmol/L (22-30); Chloride 102 mmol/L (98-107); Glucose 113 mg/dL (74-99); Magnesium 1.8 mg/dL (1.6-2.3); Non-African American GFR(CKD) 10 (>60 ml/min/1.73 sqM); Potassium 4.1 mmol/L (3.5-5.1); Sodium 132 mmol/L (137-145)
[2022-11-14] MEDS ORDERED: MORPHINE SULFATE (100 MG/2 ML) 100 MG in SODIUM CHLORIDE 0.9% 100 ML IV SCH (09:30)
--- NOTE | 2022-11-14 09:35 | P.PN ---
Progress Note - Text Progress Note Date: 11/14/22 Patient remains in the ICU. His pain has been increasing overnight. Hemodynamically fairly stable. Patient has decided to go with comfort measures apparently this morning. We'll sign off. Please call if needed.
[2022-11-14 11:21] LABS: HCT 24.9 % (39.0-53.0); HGB 7.8 gm/dL (13.0-17.5); Hypochromasia Marked; MCH 29.1 pg (25.0-35.0); MCHC 31.4 g/dL (31.0-37.0); MCV 92.6 fL (80.0-100.0); Mean Platelet Volume 16.4; RBC 2.69 m/uL (4.30-5.90); RDW 15.8 % (11.5-15.5); WBC 44.4 k/uL (3.8-10.6)
[2022-11-14 11:34] LABS: Platelet Count 87 k/uL (150-450)
[2022-11-14 11:38] LABS: Band Neutrophils % 2 %; Lymphocytes # (M) 1.33 k/uL (1.0-4.8); Monocytes # (M) 5.77 k/uL (0-1.0); Neutrophils % (M) 83 %; Nucleated Red Blood Cells 0 /100 WBC (0-0); Total Cells Counted 200
[2022-11-14 11:40] LABS: Dohle Bodies Present; Large Platelets Present; Toxic Granulation Present
--- NOTE | 2022-11-14 11:50 | P.PN ---
Subjective Progress Note Date: 11/14/22 This is a 76-year-old frail male patient with a known history of metastatic prostate cancer with chronic Lawton catheter, pancreatic cancer, daily alcohol use, nonsmoker. He presented to the emergency room on 11/11/2022 with complaints of fever and weakness. X-ray revealed a possible posterior infiltrate. White count 32. Potassium hemoglobin 7.2. Platelets 94,000. Sodium 133. Potassium 4.9. Bicarb 12. BUN 69. Creatinine 5.17. Glucose 118. Initial lactic acid 3.3 currently 1.6. Urine with large leukocytes, high WBCs and many bacteria. He was initiated on Zosyn and admitted to the floor. A rapid response team was called approximately 1:00 this morning for hypotension. He was transferred to the intensive care unit after receiving a 500 ML bolus. He since been initiated on norepinephrine currently at 0.04 mg/kg/m. He is receiving D5W with 3 A of bicarb at 125 ML's per hour. Continued on Zosyn. He is status post 1 unit of packed red blood cells for hemoglobin of 6.2 currently 8.2. Plan is for EGD on 11/16/2022. He is currently resting in bed. Awake and alert in no acute distress. He is maintaining good O2 saturations in the 90s on room air. Afebrile. No tachycardia. No tachypnea. The patient is seen today 11/14/2022 in follow-up on the intensive care unit. The CAT scan of the abdomen revealed moderate bilateral hydronephrosis considerably increased from previous exam. Possible 6 mm stone in the right UVJ. Third spacing/fluid overload state. There is severe generalized anasarca and a small right pleural effusion. Presacral edema. Possibly early pulmonary vascular congestion. Sclerotic osseous metastatic disease. Unfortunately he has continued to become more uncomfortable and is now refusing further testing, treatment or interventions. Blood cultures are positive for gram-negative bacilli, urine culture positive for gram-negative bacilli. White count 44.4. Hemoglobin 7.8. Platelets 87,000. Sodium 132. Potassium 4.1. Bicarb 16. BUN 68. Creatinine 5.27. Glucose 113. He is currently receiving D5W with 3 A of bicarbonate 150 MLS per hour. Maintaining O2 saturations in the mid 90s on 3 L/m per nasal cannula. Afebrile. Objective - Vital Signs Vital signs: Vital Signs Temp 96.4 F L 11/14/22 08:00 Pulse 117 H 11/14/22 11:00 Resp 25 H 11/14/22 11:00 BP 82/45 11/14/22 11:00 Pulse Ox 92 L 11/14/22 11:00 FiO2 Intake & Output 11/13/22 11/14/22 11/14/22 18:59 06:59 18:59 Intake Total 8221.311 5469.382 587.043 Output Total 304 127 59 Balance 5916.075 8383.382 528.043 Weight 89 kg Intake: IV 1375 1600 500 Dextrose 5% in Water 1, 1375 1500 500 000 ml @ 125 mls/hr IV . Q9H12M YOVANI with Sodium Bicarb (1 Meq/ml) 150 ml Rx#:[id number] Piperacillin-Tazobactam 3 100 .375 gm In Sodium Chloride 0.9% 100 ml @ 25 mls/hr IVPB Q12HR YOVANI Rx #:[id number] Intake, IV Titration 208.705 486.382 87.043 Amount Norepinephrine 4 mg In 208.705 486.382 87.043 Sodium Chloride 0.9% 250 ml @ 0.03 MCG/KG/MIN 10. 369 mls/hr IV .Q24H YOVANI Rx#:[id number] Output: Urine 304 127 59 Other: Voiding Method Indwelling Catheter Indwelling Catheter - Exam GENERAL EXAM: Alert, frail 76-year-old male, on 3 liters nasal cannula, currently uncomfortable. HEAD: Normocephalic. EYES: Normal reaction of pupils, equal size. NOSE: Clear with pink turbinates. THROAT: No erythema or exudates. NECK: No masses, no JVD. CHEST: No chest wall deformity. LUNGS: Equal air entry with crackles right lung base. CVS: S1 and S2 normal with no audible murmur, regular rhythm. ABDOMEN: Anasarca. No hepatosplenomegaly, normal bowel sounds, no guarding or rigidity. SPINE: No scoliosis or deformity SKIN: No rashes CENTRAL NERVOUS SYSTEM: No focal deficits, tone is normal in all 4 extremities. EXTREMITIES: There is 2+ peripheral edema. No clubbing, no cyanosis. Peripheral pulses are intact. - Labs CBC & Chem 7: 11/14/22 07:42 11/14/22 07:42 Labs: Abnormal Lab Results - Last 24 Hours (Table) 11/13/22 11/13/22 11/14/22 Range/Units 12:21 20:38 00:17 WBC 27.8 H (3.8-10.6) k/uL RBC 2.82 L (4.30-5.90) m/uL Hgb 8.0 L (13.0-17.5) gm/dL Hct 25.7 L (39.0-53.0) % RDW 15.9 H (11.5-15.5) % Plt Count 103 L (150-450) k/uL Neutrophils # (Manual) 22.50 H (1.3-7.7) k/uL Monocytes # (Manual) 1.95 H (0-1.0) k/uL Eosinophils # (Manual) 0.83 H (0-0.7) k/uL Basophils # (Manual) 0.28 H (0-0.2) k/uL Sodium (137-145) mmol/L Carbon Dioxide (22-30) mmol/L BUN (9-20) mg/dL Creatinine (0.66-1.25) mg/dL Glucose (74-99) mg/dL POC Glucose (mg/dL) 147 H 136 H (70-110) mg/dL Calcium (8.4-10.2) mg/dL 11/14/22 11/14/22 Range/Units 07:42 07:42 WBC 44.4 H (3.8-10.6) k/uL RBC 2.69 L (4.30-5.90) m/uL Hgb 7.8 L (13.0-17.5) gm/dL Hct 24.9 L (39.0-53.0) % RDW 15.8 H (11.5-15.5) % Plt Count 87 L (150-450) k/uL Neutrophils # (Manual) 37.70 H (1.3-7.7) k/uL Monocytes # (Manual) 5.77 H (0-1.0) k/uL Eosinophils # (Manual) (0-0.7) k/uL Basophils # (Manual) (0-0.2) k/uL Sodium 132 L (137-145) mmol/L Carbon Dioxide 16 L (22-30) mmol/L BUN 68 H (9-20) mg/dL Creatinine 5.27 H (0.66-1.25) mg/dL Glucose 113 H (74-99) mg/dL POC Glucose (mg/dL) (70-110) mg/dL Calcium 7.2 L (8.4-10.2) mg/dL Microbiology - Last 24 Hours (Table) 11/11/22 17:30 Blood Culture - Preliminary Blood 11/11/22 19:14 Urine Culture - Preliminary Urine,Voided Gram Neg Bacilli 11/11/22 17:45 Blood Culture Gram Stain - Preliminary Blood Blood Culture - Preliminary Gram Neg Bacilli Assessment and Plan Assessment: Acute renal failure. The CAT scan of the abdomen revealed moderate bilateral hydronephrosis considerably increased from previous exam. Possible 6 mm stone in the right UVJ. Third spacing/fluid overload state. There is severe generalized anasarca and a small right pleural effusion. Presacral edema. Possibly early pulmonary vascular congestion. Sclerotic osseous metastatic disease Acute urinary tract infection secondary to gram-negative bacilli Septic shock secondary to bacteremia, gram-negative bacilli Leukocytosis secondary to above History of prostate cancer with chronic indwelling Lawton catheter Acute on chronic anemia with a hemoglobin of 6.2 requiring 1 unit packed red blood cells, currently 7.8 History of pancreatic cancer History of daily alcohol use Plan: The patient was seen and evaluated Computed tomography scan, labs and medications reviewed The patient is very uncomfortable and is refusing any further testing and wants to be placed in comfort care His is at the bedside and they are both agreeable to the plan Comfort care orders have been placed I have personally seen and examined the patient, performed the documentation and the assessment and plan as written. Number of minutes spent on the visit: 10.
[2022-11-14 13:06] VITALS: BP 87/53; PULSE 112; RESP 18
[2022-11-15] MEDS ORDERED: PEG 3350 (236 GM/BTL) + LYTES 4,000 ML BOTTLE PO ONE (09:00)
--- NOTE | 2022-11-15 09:25 | P.PN ---
Subjective Progress Note Date: 11/14/22 76 yo m with past medical history of chronic back pain, coronary artery disease A. fib with RVR, thrombocytopenia, history of prostate cancer, bone cancer (stage IV cancer) Patient was diagnosed with prostate cancer about one month ago with his urologist Dr. Pineda since then he has indwelling Lawton catheter. One day prior to admission patient becomes confused and incoherent as per at bedside he felt very weak and he fell on his way going to the bathroom without losing consciousness. So brought him to the hospital. This morning he is awake alert and oriented 3 but very weak, mildly confused. Denies any specific complaints right now but usually was complaining of from severe back pain that is been improved with morphine here in the emergency room. Also Lawton catheter was transferred to the emergency room for suspicion of infection. Patient denies any chest pain or dyspnea. No colon. No abdominal pain or vomiting or diarrhea. Patient has been complaining of from burning. No neurological complaints. Patient upon dose of supposed to receive a second dose of hormone therapy. Sahil agosto is on chemotherapy. On admission he had a fever of 103.1. Blood pressure borderline with systolic 94-103 this morning. Labs reviewed on admission, hemoglobin dropped to 7.9 down to 6.2. WBC 22.9 and 30.4. Platelet count within the reference range. Creatinine elevated 4.62. Elevated lactic acid came back to normal. Sodium 131, potassium 4.7. Liver enzymes not elevated. Urinalysis suspicious for infection Pharmacist not detected. Chest x-ray showed posterior pneumonia possibility. EKG showing sinus tachycardia and [address]-T changes 11/14/2022 Patient is seen and evaluated in follow-up in room at bedside. Vital signs are reviewed temperature 96.4, pulse 117, respiration 25 and blood pressure of 82/45 with O2 saturation of 92% --CAT scan of the abdomen revealed moderate bilateral hydronephrosis considerably increased from previous exam. Possible 6 mm stone in the right UVJ. -- Blood cultures are positive for gram-negative bacilli, urine culture positive for gram-negative bacilli. White count 44.4. Hemoglobin 7.8. Platelets 87,000. Sodium 132. Potassium 4.1. Bicarb 16. BUN 68. Creatinine 5.27. Glucose 113. He is currently receiving D5W with 3 A of bicarbonate 150 MLS per hour. Maintaining O2 saturations in the mid 90s on 3 L/m per nasal cannula. Afebrile. Patient is refusing all treatment and is requesting comfort care Objective - Vital Signs Vital signs: Vital Signs Temp 96.4 F L 11/14/22 08:00 Pulse 87 11/14/22 08:00 Resp 18 11/14/22 08:00 BP 118/63 11/14/22 08:00 Pulse Ox 95 11/14/22 08:00 FiO2 Intake & Output 11/13/22 11/14/22 11/14/22 18:59 06:59 18:59 Intake Total 4003.591 4325.382 257.777 Output Total 304 127 44 Balance 0865.306 1321.382 213.777 Weight 89 kg Intake: IV 1375 1600 250 Dextrose 5% in Water 1, 1375 1500 250 000 ml @ 125 mls/hr IV . Q9H12M YOVANI with Sodium Bicarb (1 Meq/ml) 150 ml Rx#:[id number] Piperacillin-Tazobactam 3 100 .375 gm In Sodium Chloride 0.9% 100 ml @ 25 mls/hr IVPB Q12HR YOVANI Rx #:[id number] Intake, IV Titration 208.705 486.382 7.777 Amount Norepinephrine 4 mg In 208.705 486.382 7.777 Sodium Chloride 0.9% 250 ml @ 0.03 MCG/KG/MIN 10. 369 mls/hr IV .Q24H YOVANI Rx#:[id number] Output: Urine 304 127 44 Other: Voiding Method Indwelling Catheter Indwelling Catheter - Exam GENERAL: The patient is alert and oriented x3, not in any acute distress. Well developed, well nourished. Pale and generally weak HEENT: Pupils are round and equally reacting to light. EOMI. No scleral icterus. No conjunctival pallor. Normocephalic, atraumatic. No pharyngeal erythema. No thyromegaly. CARDIOVASCULAR: S1 and S2 present. No murmurs, rubs, or gallops. PULMONARY: Chest is clear to auscultation, no wheezing , no crackles. -ABDOMEN: Soft, nontender, nondistended, normoactive bowel sounds. No palpable organomegaly. Lawton catheter in place MUSCULOSKELETAL: No joint swelling or deformity. EXTREMITIES: No cyanosis, clubbing, or pedal edema. NEUROLOGICAL: Gross neurological examination did not reveal any focal deficits. SKIN: No rashes. no petechiae. - Labs CBC & Chem 7: 11/14/22 07:42 11/14/22 07:42 Labs: Abnormal Lab Results - Last 24 Hours (Table) 11/13/22 11/13/22 11/13/22 Range/Units 07:33 12:21 20:38 WBC 27.8 H (3.8-10.6) k/uL RBC 2.82 L (4.30-5.90) m/uL Hgb 8.0 L (13.0-17.5) gm/dL Hct 25.7 L (39.0-53.0) % RDW 15.9 H (11.5-15.5) % Plt Count 103 L (150-450) k/uL Neutrophils # (Manual) 22.50 H (1.3-7.7) k/uL Monocytes # (Manual) 1.95 H (0-1.0) k/uL Eosinophils # (Manual) 0.83 H (0-0.7) k/uL Basophils # (Manual) 0.28 H (0-0.2) k/uL Sodium 133 L (137-145) mmol/L Carbon Dioxide 12 L (22-30) mmol/L BUN 69 H (9-20) mg/dL Creatinine 5.17 H (0.66-1.25) mg/dL Glucose 118 H (74-99) mg/dL POC Glucose (mg/dL) 147 H (70-110) mg/dL Calcium 7.4 L (8.4-10.2) mg/dL Albumin 2.6 L (3.5-5.0) g/dL 11/14/22 Range/Units 00:17 WBC (3.8-10.6) k/uL RBC (4.30-5.90) m/uL Hgb (13.0-17.5) gm/dL Hct (39.0-53.0) % RDW (11.5-15.5) % Plt Count (150-450) k/uL Neutrophils # (Manual) (1.3-7.7) k/uL Monocytes # (Manual) (0-1.0) k/uL Eosinophils # (Manual) (0-0.7) k/uL Basophils # (Manual) (0-0.2) k/uL Sodium (137-145) mmol/L Carbon Dioxide (22-30) mmol/L BUN (9-20) mg/dL Creatinine (0.66-1.25) mg/dL Glucose (74-99) mg/dL POC Glucose (mg/dL) 136 H (70-110) mg/dL Calcium (8.4-10.2) mg/dL Albumin (3.5-5.0) g/dL Microbiology - Last 24 Hours (Table) 11/11/22 17:30 Blood Culture - Preliminary Blood 11/11/22 19:14 Urine Culture - Preliminary Urine,Voided Gram Neg Bacilli 11/11/22 17:45 Blood Culture Gram Stain - Preliminary Blood Blood Culture - Preliminary Gram Neg Bacilli Assessment and Plan Assessment: acute urinary tract infection, associated with indwelling Lawton catheter Sepsis secondary to above Acute kidney injury and failure, nonoliguric acute sever anemia requiring blood transufion metabolic encephalopathy History of prostate cancer, colon cancer and pancreatic cancer Paroxysmal A. fib with RVR moderate Severe Chronic back pain, related to his metastatic disease Plan: continue with IV hydration Continue with antibiotic, currently on vancomycin and cefepime is started in the emergency room Infectious disease consult was ordered. I will consult also nephrology service Consult surgery service for severe anemia. transfuse 1 unit of blood and monitor hemoglobin avoid blood thinner Pain management Labs and medication were reviewed.. Continue same treatment. Continue with symptomatic treatment. Resume home medication. Monitor labs and vitals. DVT and GI prophylaxis. Further recommendations as per clinical course of the patient DVT prophylaxis: no Subcutaneous heparin GI Prophylaxis: Pepcid Protonix PT/OT: Deferred Prognosis is guarded
--- NOTE | 2023-01-01 13:54 | CDI ---
Documentation Clarification Form Date: 01/01/2023 01:26:37 PM From: Ольга Mcallister RN, CCDS Email: [email or web address] Admit Date: 11/11/2022 07:31:00 PM Patient Name: Joon Phelps Visit Number: [id number] Discharge Date: 11/14/2022 06:54:00 PM ATTENTION: The Clinical Documentation Specialists (CDI) and [facility] Coding Staff appreciate your assistance in clarifying documentation. Please respond to the clarification below the line at the bottom and electronically sign. The CDI & [facility] Coding staff will review the response and follow-up if needed. Please note: Queries are made part of the Legal Health Record. If you have any questions, please contact the author of this message via ITS. Dr. Kena Arellano Your patient had Sepsis and was given supplemental oxygen. Based on this information and the findings below, is there an additional diagnosis that is clinically appropriate for this patient? History/Risk Factors: CAD, A fib, prostate cancer with bone metastases and chronic Lawton catheter. Presented with high fever, confusion and weakness. Admitted with Sepsis and UTI associated with Lawton catheter. Clinical Indicators: 11/13 RR high of 51 11/14 RR high of 35 Pulse oximetry: 11/12 87%; 11/13 84%-88%-91% 11/14 Lung/Breathing assessment: crackles right lung base 11/11 CXR: Posterior infiltrate. Correlate for atelectasis or pneumonia Treatment: Q 5-minute pulse ox on 11/13 O2 2-3LNC 11/11-11/14 Is there an additional diagnosis that is clinically appropriate for this patient? [ @@@ ] Acute Hypoxic Respiratory Failure (pO2 <60 mm Hg or SpO2 <91% on room air) [ ] No additional diagnosis [ ] Other Diagnosis, please specify [ ] Unable to determine MTDD
--- NOTE | 2023-01-03 14:49 | P.DS ---
Providers Date of admission: 11/11/22 19:31 Expected date of discharge: 11/14/22 Attending physician: Gal Du MD Consults: 11/11/22 19:29 Consult Physician Routine Consulting Provider: Sweetie Lanier Consult Reason/Comments: sepsis Do you want consulting provider notified?: Yes 11/12/22 06:23 Consult Physician Urgent Consulting Provider: Aneta Cannon Consult Reason/Comments: renal failure Do you want consulting provider notified?: Yes 11/13/22 00:52 Consult Physician Stat Consulting Provider: Roberto Seaman Consult Reason/Comments: ICU management Do you want consulting provider notified?: Already Contacted 11/13/22 03:50 Consult Physician Routine Consulting Provider: Noel Huang Consult Reason/Comments: hydronephrosis Do you want consulting provider notified?: Yes, Notify in am Primary care physician: Stated None Hospital Course: 76 yo m with past medical history of chronic back pain, coronary artery disease A. fib with RVR, thrombocytopenia, history of prostate cancer, bone cancer (stage IV cancer) Patient was diagnosed with prostate cancer about one month ago with his urologist Dr. Pineda since then he has indwelling Lawton catheter. One day prior to admission patient becomes confused and incoherent as per at bedside he felt very weak and he fell on his way going to the bathroom without losing consciousness. So brought him to the hospital. This morning he is awake alert and oriented 3 but very weak, mildly confused. Denies any specific complaints right now but usually was complaining of from severe back pain that is been improved with morphine here in the emergency room. Also Lawton catheter was transferred to the emergency room for suspicion of infection. Patient denies any chest pain or dyspnea. No colon. No abdominal pain or vomiting or diarrhea. Patient has been complaining of from burning. No neurological complaints. Patient upon dose of supposed to receive a second dose of hormone therapy. Currently is on chemotherapy. On admission he had a fever of 103.1. Blood pressure borderline with systolic 94-103 this morning. Labs reviewed on admission, hemoglobin dropped to 7.9 down to 6.2. WBC 22.9 and 30.4. Platelet count within the reference range. Creatinine elevated 4.62. Elevated lactic acid came back to normal. Sodium 131, potassium 4.7. Liver enzymes not elevated. Urinalysis suspicious for infection Pharmacist not detected. Chest x-ray showed posterior pneumonia possibility. EKG showing sinus tachycardia and [address]-T changes acute urinary tract infection, associated with indwelling Lawton catheter Sepsis secondary to above Acute kidney injury and failure, nonoliguric acute sever anemia requiring blood transufion metabolic encephalopathy History of prostate cancer, colon cancer and pancreatic cancer Paroxysmal A. fib with RVR moderate Severe Chronic back pain, related to his metastatic disease Plan: continue with IV hydration Continue with antibiotic, currently on vancomycin and cefepime is started in the emergency room Infectious disease consult was ordered. I will consult also nephrology service Consult surgery service for severe anemia. transfuse 1 unit of blood and monitor hemoglobin avoid blood thinner Pain management Labs and medication were reviewed.. Continue same treatment. Continue with symptomatic treatment. Resume home medication. Monitor labs and vitals. DVT and GI prophylaxis. Further recommendations as per clinical course of the patient DVT prophylaxis: no Subcutaneous heparin GI Prophylaxis: Pepcid Protonix 11/14/2022 Patient is seen and evaluated in follow-up in room at bedside. Vital signs are reviewed temperature 96.4, pulse 117, respiration 25 and blood pressure of 82/45 with O2 saturation of 92% --CAT scan of the abdomen revealed moderate bilateral hydronephrosis considerably increased from previous exam. Possible 6 mm stone in the right UVJ. -- Blood cultures are positive for gram-negative bacilli, urine culture positive for gram-negative bacilli. White count 44.4. Hemoglobin 7.8. Platelets 87,000. Sodium 132. Potassium 4.1. Bicarb 16. BUN 68. Creatinine 5.27. Glucose 113. He is currently receiving D5W with 3 A of bicarbonate 150 MLS per hour. Maintaining O2 saturations in the mid 90s on 3 L/m per nasal cannula. Afebrile. Patient is refusing all treatment and is requesting comfort care Patient transitioned to comfort care this morning. Passed peacefully with his , son and daughter at bedside. Time of 1706. All belongings sent home with . [facility] home notified and to come picker tender the body. Patient Condition at Discharge: Serious Plan - Discharge Summary Discharge Rx Participant: No New Discharge Prescriptions: No Action Acetaminophen [Tylenol Arthritis] 1,300 mg PO Q6H PRN PRN Reason: Fever And/ Or Pain Enzalutamide [Xtandi] 160 mg PO DAILY Discharge Medication List Acetaminophen [Tylenol Arthritis] 1,300 mg PO Q6H PRN 11/11/22 [History] Enzalutamide [Xtandi] 160 mg PO DAILY 11/11/22 [History] Follow up Appointment(s)/Referral(s): None,Stated [Primary Care Provider] - 1-2 days Discharge Disposition: - Preliminary Cause of Preliminary Cause of : UTI/Sepsis
== END 2022-11-14 18:54 | disposition expired | DRG 698 ==
LOC: EC 17:13 → 3SCARD 19:31 → 2SICU 11-13 00:31
PROVIDERS: ADMIT Internal Medicine; ATTEND Internal Medicine
PROC: 30233N1 Transfusion of Nonautologous Red Blood Cells into Peripheral Vein, Percutaneous Approach (ICD-10-PCS; principal; 2022-11-12)
PROC: 3E033XZ Introduction of Vasopressor into Peripheral Vein, Percutaneous Approach (ICD-10-PCS; 2022-11-13)
DX: T83.511A Infection and inflammatory reaction due to indwelling urethral catheter, initial encounter (principal); A41.51 Sepsis due to Escherichia coli [E. coli]; R65.21 Severe sepsis with septic shock; N17.0 Acute kidney failure with tubular necrosis; G93.41 Metabolic encephalopathy; J18.9 Pneumonia, unspecified organism; J96.01 Acute respiratory failure with hypoxia; C79.51 Secondary malignant neoplasm of bone; E87.20 Acidosis, unspecified; N13.6 Pyonephrosis; D69.6 Thrombocytopenia, unspecified; C61 Malignant neoplasm of prostate; I48.0 Paroxysmal atrial fibrillation; Z66 Do not resuscitate; Z51.5 Encounter for palliative care; Z20.822 Contact with and (suspected) exposure to COVID-19; Z28.310 Unvaccinated for COVID-19; D63.0 Anemia in neoplastic disease; E86.0 Dehydration; N20.0 Calculus of kidney; E87.70 Fluid overload, unspecified; G89.3 Neoplasm related pain (acute) (chronic); I25.10 Atherosclerotic heart disease of native coronary artery without angina pectoris; I73.00 Raynaud's syndrome without gangrene; R33.9 Retention of urine, unspecified; R54 Age-related physical debility; Z79.899 Other long term (current) drug therapy; Z85.038 Personal history of other malignant neoplasm of large intestine; Z85.07 Personal history of malignant neoplasm of pancreas; Z85.46 Personal history of malignant neoplasm of prostate; Z88.2 Allergy status to sulfonamides; Y84.6 Urinary catheterization as the cause of abnormal reaction of the patient, or of later complication, without mention of misadventure at the time of the procedure
CPT/HCPCS: 36415; 51798; 71045; 71046; 74176; 76770; 80048; 80053; 80202; 81001; 82330; 82565; 83605; 83735; 85025; 85027; 86850; 86900; 86901; 86920; 87040; 87077; 87086; 87186; 87636; 93005; 96361; 96365; 96366; 96368; 96372; 96375; 99291